=== PATIENT | female | born 1940 | race Caucasian/White ===

== ENCOUNTER 2018-10-31 14:06 | Emergency (ER) | payer MEDICARE, OTHER ==
[~2018-10-31] VITALS: Ht 160 cm; Wt 74.8 kg
[~2018-10-31 14:06] MED LIST: ASA 81 MG PO
--- NOTE | 2018-10-31 15:19 | Diagnostic Imaging Report ---
PROCEDURE: CT head and CT cervical spine without contrast. TECHNIQUE: Multiple contiguous axial images were obtained through the brain and cervical spine without the use of intravenous contrast. Sagittal and coronal reformations through the cervical spine were then performed. INDICATION: Fall, head and neck injury. COMPARISON: No prior studies are available for comparison. FINDINGS: CT HEAD: The ventricles and sulci are within normal limits. No sulcal effacement, midline shift, or hemorrhage is detected. The cisterns are patent. The visualized paranasal sinuses are clear. IMPRESSION: No acute intracranial process is detected. CT CERVICAL SPINE: The alignment is normal apart from minimal anterolisthesis of C3 on C4. There is significant degenerative disc disease at the C4-5 and C5-6 levels with disc space narrowing and marginal spurring. No fractures are identified. The odontoid appears intact. IMPRESSION: Cervical spondylosis. No acute bony abnormality is detected. Dictated by: Dictated on workstation # [id number]
[2018-10-31] MEDS ORDERED: TETANUS,DIPTH,PERTUSS P/F (BOOSTRIX) 0.5 ML VIAL IM ONE (15:30)
[2018-10-31] MEDS ORDERED: LIDOCAINE/EPI 2% 1:100,00 (XYLOCAINE) 20 ML VIAL INJ ONE (15:30)
--- NOTE | 2018-10-31 16:09 | ED Fall/Injury ---
General Chief Complaint: Trauma-Non Activation Stated Complaint: FALL;HEAD INJ Nursing Triage Note: PT AMB DOWN BASEMENT STAIRS WHEN SHE TRIPPED AND FELL, RESULTING IN HEAD HITTING CEMENT WALL. Source: patient Exam Limitations: no limitations History of Present Illness Date Seen by Provider: Oct 31, 2018 Time Seen by Provider: 14:48 Initial Comments This 78-year-old woman presents to the emergency room via private vehicle after having a fall on concrete steps going down to her basement. She was carrying items in both arms and one of the got caught up on a railing or the wall causing her to fall. She struck her head on the concrete wall. This resulted in a large laceration over the left brow. She denies any loss of consciousness , confusion, change in vision, nausea, or other signs of concussion. She also has some minor abrasions on her left lower leg and left knee. Location Injury Occurred: HOME Allergies and Home Medications Allergies Coded Allergies: No Known Drug Allergies (Unverified , 05/20/12) Patient Home Medication List Home Medication List Reviewed: Yes Review of Systems Review of Systems Constitutional: no symptoms reported Eyes: No Symptoms Reported Ears, Nose, Mouth, Throat: no symptoms reported Respiratory: no symptoms reported Cardiovascular: no symptoms reported Gastrointestinal: no symptoms reported Genitourinary: no symptoms reported : No Musculoskeletal: see HPI Skin: see HPI Psychiatric/Neurological: No Symptoms Reported Past Thkoscl-Otwyvy-Hwsagm Hx Patient Social History Alcohol Use: Denies Use Recreational Drug Use: No Smoking Status: Never a Smoker 2nd Hand Smoke Exposure: No Recent Foreign Travel: No Contact w/Someone Who Travel: No Recent Infectious Disease Expo: No Recent Hopitalizations: No Physical Abuse: No Sexual Abuse: No Seasonal Allergies Seasonal Allergies: No Past Medical History Surgeries: No Respiratory: No Cardiac: Yes Hypertension Neurological: No Genitourinary: No Gastrointestinal: Yes (colon polyp 4 years ago.) Musculoskeletal: No Endocrine: No HEENT: Yes Hearing Impairment: Bilateral Hearing Aide Cancer: No Psychosocial: No Integumentary: No Blood Disorders: No Physical Exam Vital Signs Vital Signs - First Documented Capillary Refill : Less Than 3 Seconds Height, Weight, BMI Height: 5'3.00" Weight: 165lbs. oz. 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, no motor/sensory deficits, alert, normal mood/affect, oriented x 3 Skin: normal color, warm/dry, other (See above) Sheila Coma Score Best Eye Response: (4) Open Spontaneously Best Verbal Response: (5) Oriented Best Motor Response: (6) Obeys Commands [place] Total: 15 Procedures/Interventions Wound Location: Face Other Wound Location Above left brow Wound Length (cm): 4 Wound's Depth, Shape: linear, irregular, sub Q Wound Explored: clean Irrigated w/ Saline (ccs): 400 Betadine Prep?: Yes Anesthesia: Lidocaine w/ Epi Volume Anesthetic (ccs): 3 Suture: Prolene Suture Size: 5-0 Number of Sutures: 6 Sterile Dressing Applied?: Yes Progress Open wound was sprayed with lidocaine with epinephrine. Skin was then cleaned with alcohol and local anesthetic was injected. Wound was irrigated with 400 mL of normal saline with a syringe. Wound was then repaired with 6 sutures of 5 -0 Prolene in an interrupted fashion. Patient tolerated the procedure well and wound closed nicely. Wound was dressed with a sterile Band-Aid and some antibiotic ointment. Progress/Results/Core Measures Results/Orders My Orders Orders - YOUSUF NIETO MD Ct Head/Cervical Spine Wo (10/31/18 14:54) Dipht,Pertuss(Acell),Tet Adult (Boostrix (10/31/18 15:30) Lidocaine/Epi 2% 1:100,000 (Xylocaine/Ep (10/31/18 15:30) Medications Given in ED Current Medications Medications Dose Ordered Sig/Hubert Route Start Time Stop Time Status Last Admin Dose Admin Diphtheria/ Tetanus/Acell Pertussis 0.5 ml ONCE ONCE IM 10/31/18 15:30 10/31/18 15:31 DC 10/31/18 16:01 0.5 ML Lidocaine/ Epinephrine 20 ml ONCE ONCE INJ 10/31/18 15:30 10/31/18 15:31 DC 10/31/18 15:35 20 ML Vital Signs/I&O 10/31/18 10/31/18 10/31/18 14:35 14:35 16:17 Temp 96.9 96.9 96.9 Pulse 80 80 68 Resp 18 16 18 B/P (MAP) 146/82 (103) 146/82 (103) 149/87 (107) Pulse Ox 95 95 97 O2 Delivery Room Air Room Air Room Air Blood Pressure Mean: 103 Progress Progress Note : Progress Note CT of the head and neck was negative for intracranial and bony injury. Wound was repaired. Boostrix tetanus booster was administered. Patient was discharged in improved condition. Diagnostic Imaging Diagonstic Imaging: CT Plain Films/CT/US/NM/MRI: c-spine, head Comments CT head and C-spine viewed by me and report reviewed. See report below: NAME: LINDA BRISENO [facility] REC#: [id number] PT STATUS: REG ER : 1940 PHYSICIAN: YOUSUF NIETO MD ADMIT DATE: 10/31/18/ER Signed Date of Exam: 10/31/18 CT HEAD/CERVICAL SPINE WO PROCEDURE: CT head and CT cervical spine without contrast. TECHNIQUE: Multiple contiguous axial images were obtained through the brain and cervical spine without the use of intravenous contrast. Sagittal and coronal reformations through the cervical spine were then performed. INDICATION: Fall, head and neck injury. COMPARISON: No prior studies are available for comparison. FINDINGS: CT HEAD: The ventricles and sulci are within normal limits. No sulcal effacement, midline shift, or hemorrhage is detected. The cisterns are patent. The visualized paranasal sinuses are clear. IMPRESSION: No acute intracranial process is detected. CT CERVICAL SPINE: The alignment is normal apart from minimal anterolisthesis of C3 on C4. There is significant degenerative disc disease at the C4-5 and C5-6 levels with disc space narrowing and marginal spurring. No fractures are identified. The odontoid appears intact. IMPRESSION: Cervical spondylosis. No acute bony abnormality is detected. Dictated by: Dictated on workstation # [id number] Dict: 10/31/18 1514 Trans: 10/31/18 1527 Interpreted by: DUSTY DANIELLE MD Electronically signed by: DUSTY DANIELLE MD 10/31/18 1527 Departure Impression Primary Impression: Laceration of forehead Qualified Codes: S01.81XA - Laceration without foreign body of other part of head, initial encounter Additional Impression: Fall on stairs Qualified Codes: W10.9XXA - Fall (on) (from) unspecified stairs and steps, initial encounter Disposition: 01 HOME, SELF-CARE Condition: Improved Departure-Patient Inst. Decision time for Depature: 15:45 Referrals: LEONIDAS AMAYA MD (PCP) Primary Care Physician Patient Instructions: Laceration Repair With Stitches (DC), Minor Head Injury ( DC) Add. Discharge Instructions: Keep the wound covered when active or when in dirty environments. You may also wish to cover it at bedtime to avoid disrupting the sutures in your sleep. You may use a small amount of antibiotic ointment to prevent the dressing from sticking to the wound from dried drainage. Expect some degree of a bloody or clear yellow drainage for the next 48 hours. You may shower starting tomorrow morning but do not submerge until sutures are removed. Do not scrub directly over the sutures, but you may allow soapy water to run over the wound. Monitor for signs of infection including increasing redness, increasing swelling, increasing pain, puslike drainage, or fever over 100. Return to care promptly if you notice these symptoms. Return in 7 days to have the sutures removed. All discharge instructions reviewed with patient and/or family. Voiced understanding. Copy Copies To 1: ADRIÁN HUSAIN MD, JOSHUA T MD Oct 31, 2018 16:09
[2018-10-31 16:17] VITALS: BP 149/87
== END 2018-10-31 16:17 | disposition home or self-care (01) ==
LOC: EDUNIT# 14:06 → ER 14:07
DX: S01.01XA Laceration without foreign body of scalp, initial encounter (principal); I10 Essential (primary) hypertension; R40.2142 Coma scale, eyes open, spontaneous, at arrival to emergency department; R40.2252 Coma scale, best verbal response, oriented, at arrival to emergency department; R40.2362 Coma scale, best motor response, obeys commands, at arrival to emergency department; Z23 Encounter for immunization; Z86.010 Personal history of colon polyps; W10.8XXA Fall (on) (from) other stairs and steps, initial encounter; W22.01XA Walked into wall, initial encounter; Y92.008 Other place in unspecified non-institutional (private) residence as the place of occurrence of the external cause
CPT/HCPCS: 12013; 64450; 70450; 72125; 90471; 90715

== ENCOUNTER 2018-11-07 14:17 | Emergency (ER) | payer MEDICARE, OTHER | END 2018-11-07 16:17 | disposition left against medical advice (07) | LOC: EDUNIT# 14:17 → ER 14:18 | DX: Z48.02 Encounter for removal of sutures (principal) ==

== ENCOUNTER 2019-02-02 06:10 | Outpatient (CLI) | payer MEDICARE, OTHER ==
[~2019-02-02] VITALS: Ht 160 cm; Wt 74.8 kg
[2019-02-04] MEDS ORDERED: FLAX100032 PO (12:04)
[2019-02-04] MEDS ORDERED: LOSA50TA63 PO (12:04)
[2019-02-04] MEDS ORDERED: FISH1CAP15 PO (12:04)
== END 2019-02-02 12:39 | disposition home or self-care (01) ==
LOC: PREOP 06:10
PROVIDERS: ATTEND Specialist
DX: Z01.818 Encounter for other preprocedural examination (principal)

== ENCOUNTER 2019-02-06 08:12 | Day surgery (SDC) | payer MEDICARE, OTHER ==
[~2019-02-06] VITALS: Ht 160 cm; Wt 74.8 kg
[~2019-02-06 08:12] MED LIST changes: +FISH1CAP15 PO; +FLAX100032 PO; +LOSA50TA63 PO
[2019-02-06] MEDS ORDERED: LIDOCAINE PF 1% 2 ML AMP IR PRN (08:15)
[2019-02-06] MEDS ORDERED: MOXIFLOXACIN OPHTH SOLN 5 MG/ML 0.3 ML SYRINGE OP ONE (08:15)
[2019-02-06] MEDS ORDERED: TIMOLOL MALEATE 0.5% 5 ML (TIMOPTIC) BTL OU PRN (08:15)
[2019-02-06] MEDS ORDERED: POVIDONE (BETADINE) OPHTH SOLN 5% 30 ML OP ONE (08:15)
[2019-02-06 08:16] VITALS: BP 136/78
--- OUTSIDE RECORDS SUMMARY | 2019-02-06 08:16 | XMS REPORT | CCD ---
Author Author [facility] Organization [facility] Address [address] [place] [address] Phone Care Team Providers Care Account [employer] Name Role Phone PP Unavailable CCM Unavailable Summary Purpose Interface Exchange Insurance Providers Payer name Policy type / Coverage type Covered constitution party ID Effective Begin Date Effective End Date WPS Medicare Part B Medicare Part B [id number] Unknown [employer] [place] Medicare Part B [id number] Unknown Family history Mother Diagnosis Age At Onset Myocardial infarction Unknown Social History Social History Element Codes Description Effective Dates Marital status Unknown Paul 05/02/2016 Number of children Unknown 3 05/02/2016 Employment Unknown Retired 05/02/[address]: 866381 Currently drinks alcohol 05/02/2016 Frequency of drinks SNOMED CT: 572641035 1-4 drinks per week 1 per week 05/02/2016 Allergies, Adverse Reactions, Alerts Substance Reaction Codes Entered Date Inactivated Date Status Lipitor RxNorm: 83278 05/14/2018 No Inactive Date Active VITAMIN E ANALOGUES Unknown 09/06/2017 No Inactive Date Active VITAMIN E DERIVATIVES Unknown 09/06/2017 No Inactive Date Active Past Medical History Illness Codes Condition Status Onset Date Resolved Date Actinic keratosis ICD- 9: 702.0 ICD-10: L57.0 Active 05/21/2017 Unknown Essential (primary) hypertension ICD-9: 401.1 ICD-10: I10 Active 05/01/2018 Unknown Mixed hyperlipidemia ICD-9: 272.2 ICD-10: E78.2 Active 05/21/2017 Unknown Encounter for screening mammogram for malignant neoplasm of breast ICD-9: V76.12 ICD-10: Z12.31 Active 01/20/2018 Unknown Encounter for immunization ICD-9: V04.81 ICD-10: Z23 Active 09/05/2017 Unknown Rash and other nonspecific skin eruption ICD-9: 782.1 ICD-10: R21 Active 09/05/2017 Unknown Vitamin D deficiency, unspecified ICD-9: 268.9 ICD-10: E55.9 Active 05/01/2016 Unknown Encounter for general adult medical examination without abnormal findings ICD-9: V70.0 ICD-10: Z00.00 Active 05/01/2016 Unknown Encounter for immunization ICD-9: V03.9 ICD-10: Z23 Active 05/01/2016 Unknown Problems Condition Codes Effective Dates Condition Status Actinic keratosis ICD- 9: 702.0 ICD-10: L57.0 05/21/2017 Active Essential (primary) hypertension ICD-9: 401.1 ICD-10: I10 05/01/2018 Active Mixed hyperlipidemia ICD-9: 272.2 ICD-10: E78.2 05/21/2017 Active Encounter for screening mammogram for malignant neoplasm of breast ICD-9: V76.12 ICD-10: Z12.31 01/20/2018 Active Encounter for immunization ICD-9: V04.81 ICD-10: Z23 09/05/2017 Active Rash and other nonspecific skin eruption ICD-9: 782.1 ICD-10: R21 09/05/2017 Active Vitamin D deficiency, unspecified ICD-9: 268.9 ICD-10: E55.9 05/01/2016 Active Encounter for general adult medical examination without abnormal findings ICD-9: V70.0 ICD-10: Z00.00 05/01/2016 Active Encounter for immunization ICD-9: V03.9 ICD-10: Z23 05/01/2016 Active Medications Medication Codes Instructions Start Date Stop Date Status Fill Instructions betamethasone valerate 0.1 % topical ointment RxNorm: 042088 1 Application TOP BID 12/08/2018 01/06/2019 Active losartan 50 mg tablet RxNorm: 863306 1 Tablet(s) PO QPM 201708/21/2019 Active gemfibrozil 600 mg tablet RxNorm: 674873 1 Tablet(s) PO BID 05/28/2018 Inactive doing a short supply to see if she can tolerate med gemfibrozil 600 mg tablet RxNorm: 659559 1 Tablet(s) PO BID 05/13/2018 Inactive doing a short supply to see if she can tolerate med Lipitor 10 mg tablet RxNorm: 163210 1 Tablet(s) PO QHS 201705/13/2018 Inactive losartan 50 mg tablet RxNorm: 730638 1 Tablet(s) PO QPM 201705/28/2018 Inactive prednisone 20 mg tablet RxNorm: 902002 2 Tablet(s) PO daily 04/201709/09/2017 Inactive Kenalog 40 mg/mL suspension for injection RxNorm: 9756088 Milliliter(s) Inj 09/05/2017 09/05/2017 Inactive nystatin 100,000 unit/gram topical cream RxNorm: 317226 1 Gram(s) TOP TID 09/04/2017 09/03/2017 Inactive nystatin 100,000 unit/gram topical cream RxNorm: 235800 1 Gram(s) TOP TID 09/04/2017 09/10/2017 Inactive Diflucan 150 mg tablet RxNorm: 080698 1 Tablet(s) PO daily 01/201709/08/2017 Inactive Diflucan 150 mg tablet RxNorm: 040678 1 Tablet(s) PO daily 01/201709/01/2017 Inactive Lipitor 10 mg tablet RxNorm: 987941 1 Tablet(s) PO QHS 201605/21/2017 Inactive Lipitor 10 mg tablet RxNorm: 591223 1 Tablet(s) PO QHS 201604/30/2018 Inactive Vitamin D3 1,000 unit tablet RxNorm: 574188 4 Tablet(s) PO BID 10/03/2016 05/20/2017 Inactive Vitamin D2 50,000 unit capsule RxNorm: 509388 1 Capsule(s) PO QW 10/03/2016 04/30/2018 Inactive Vitamin D2 50,000 unit capsule RxNorm: 381056 1 Capsule(s) PO QW 05/31/2016 10/02/2016 Inactive [id number] Oil oral RxNorm: oral No Start Date Active Vitamin D3 1,000 unit tablet RxNorm: 564531 3 Tablet(s) PO daily No Start Date 10/02/2016 Inactive Vitamin D2 50,000 unit capsule RxNorm: 616578 1 Capsule(s) PO QW No Start Date 05/30/2016 Inactive Medication Administered Medication Codes Instructions Start Date Status Kenalog 40 mg/mL suspension for injection RxNorm: 9329049 Milliliter 09/05/2017 No longer Active Immunizations Vaccine Codes Date Status Influenza CVX: 141 09/05/2017 completed Pneumococcal (Adult) CVX: 133 05/02/2016 completed Assessments Condition Codes Effective Dates Essential (primary) hypertension ICD-10: I10 ICD-9: 401.1 12/08/2018 Mixed hyperlipidemia ICD-10: E78.2 ICD-9: 272.2 12/08/2018 Actinic keratosis ICD-10: L57.0 ICD-9: 702.0 12/08/2018 Encounter for screening mammogram for malignant neoplasm of breast ICD-10: Z12.31 ICD-9: V76.12 01/20/2018 Encounter for immunization ICD-10: Z23 ICD-9: V04.81 09/05/2017 Rash and other nonspecific skin eruption ICD-10: R21 ICD-9: 782.1 09/05/2017 Vitamin D deficiency, unspecified ICD-10: E55.9 ICD-9: 268.9 05/21/2017 Encounter for general adult medical examination without abnormal findings ICD-10: Z00.00 ICD-9: V70.0 05/02/2016 Encounter for immunization ICD-10: Z23 ICD-9: V03.9 05/02/2016 Reason For Visit Reason For Visit Effective Dates Notes hypertension 12/08/2018 blood pressure followup 05/29/2018 hyperlipidemia 05/01/2018 hx of hyperlipdemia- no med tx rash 09/05/2017 hyperlipidemia 05/21/2017 hx of hyperlipdemia- no med tx well woman exam (65+ years) 05/02/2016 Results Observation Observation Code Item Item Code Result Date Lipid Ord30 CHOL 233 mg/dL 12/08/2018 Lipid Ord30 HDL 45.0 mg/dl 12/08/2018 Lipid Ord30 TRIG 150 mg/dL 12/08/2018 Lipid Ord30 LDL 158 mg/dL 12/08/2018 Lipid Ord30 C/HDL 5.2 Ratio 12/08/2018 Tsh Ord6 TSH (3rd IS) 2.62 uIU/mL 12/08/2018 Cbc With Differential Ord2 WBC 6.50 K/ul 12/08/2018 Cbc With Differential Ord2 RBC 4.69 M/ul 12/08/2018 Cbc With Differential Ord2 HGB 13.9 g/dl 12/08/2018 Cbc With Differential Ord2 HCT 41.6 % 12/08/2018 Cbc With Differential Ord2 Neut% 57.7 % 12/08/2018 Cbc With Differential Ord2 MCV 88.7 fl 12/08/2018 Cbc With Differential Ord2 Lymph% 30.6 % 12/08/2018 Cbc With Differential Ord2 MCH 29.6 pg 12/08/2018 Cbc With Differential Ord2 Giles% 9.1 % 12/08/2018 Cbc With Differential Ord2 MCHC 33.4 pg 12/08/2018 Cbc With Differential Ord2 Eos% 2.0 % 12/08/2018 Cbc With Differential Ord2 PLT 255 K/ul 12/08/2018 Cbc With Differential Ord2 Baso% 0.6 % 12/08/2018 Cbc With Differential Ord2 RDW 13.2 % 12/08/2018 Cbc With Differential Ord2 Neut ABS# 3.75 K/ul 12/08/2018 Cbc With Differential Ord2 Lymph ABS# 1.99 K/ul 12/08/2018 Cbc With Differential Ord2 Giles ABS# 0.6 K/ul 12/08/2018 Cbc With Differential Ord2 Eos ABS# 0.1 K/ul 12/08/2018 Cbc With Differential Ord2 Baso ABS# 0.0 K/ul 12/08/2018 Comp Metabolic Gut931 NA 141 mEq/L 12/08/2018 Comp Metabolic Zya230 K 4.4 mEq/L 12/08/2018 Comp Metabolic Gya542 CL 104 mEq/L 12/08/2018 Comp Metabolic Ymt385 CO2 27.0 mEq/L 12/08/2018 Comp Metabolic Ptp495 ANION GAP 14 12/08/2018 Comp Metabolic Bcm004 GLUCOSE 121 mg/dL 12/08/2018 Comp Metabolic Tqw869 Creat 0.9 mg/dL 12/08/2018 Comp Metabolic Nwr887 eGFR 66 ml/min/1.73m2 12/08/2018 Comp Metabolic Yia001 BUN 15 mg/dL 12/08/2018 Comp Metabolic Gha923 B/C Ratio 17.0 Ratio 12/08/2018 Comp Metabolic Ltg235 CALCIUM 9.0 mg/dL 12/08/2018 Comp Metabolic Lzo535 ALK PHOS 63 U/L 12/08/2018 Comp Metabolic Cco353 AST(SGOT) 22 U/L 12/08/2018 Comp Metabolic Oeb084 ALT(SGPT) 27 U/L 12/08/2018 Comp Metabolic Mid091 BILI T 0.7 mg/dL 12/08/2018 Comp Metabolic Mpq950 ALBUMIN 4.1 g/dL 12/08/2018 Comp Metabolic Dkh797 TPRO 6.4 g/dL 12/08/2018 Comp Metabolic Fkq001 GLOB 2.4 g/dL 12/08/2018 Comp Metabolic Xve980 A/G Ratio 1.7 Ratio 12/08/2018 Comp Metabolic Alv448 Osmo 283 mOsmo 12/08/2018 Tsh Ord6 TSH (3rd IS) 3.12 uIU/mL 05/01/2018 Lipid Ord30 CHOL 212 mg/dL 05/01/2018 Lipid Ord30 HDL 47.0 mg/dl 05/01/2018 Lipid Ord30 TRIG 156 mg/dL 05/01/2018 Lipid Ord30 LDL 134 mg/dL 05/01/2018 Lipid Ord30 C/HDL 4.5 Ratio 05/01/2018 Comp Metabolic Oak776 NA 139 mEq/L 05/01/2018 Comp Metabolic Wfx008 K 4.2 mEq/L 05/01/2018 Comp Metabolic Mlv652 CL 103 mEq/L 05/01/2018 Comp Metabolic Xns732 CO2 28.0 mEq/L 05/01/2018 Comp Metabolic Vtq455 ANION GAP 12 05/01/2018 Comp Metabolic Jvz251 GLUCOSE 109 mg/dL 05/01/2018 Comp Metabolic Uki524 Creat 0.9 mg/dL 05/01/2018 Comp Metabolic Stm647 eGFR 68 ml/min/1.73m2 05/01/2018 Comp Metabolic Clc505 BUN 13 mg/dL 05/01/2018 Comp Metabolic Qkw303 B/C Ratio 15.3 Ratio 05/01/2018 Comp Metabolic Ogg550 CALCIUM 9.4 mg/dL 05/01/2018 Comp Metabolic Iqc406 ALK PHOS 49 U/L 05/01/2018 Comp Metabolic Rxr275 AST(SGOT) 13 U/L 05/01/2018 Comp Metabolic Vga929 ALT(SGPT) 12 U/L 05/01/2018 Comp Metabolic Vvd649 BILI T 0.6 mg/dL 05/01/2018 Comp Metabolic Ucu631 ALBUMIN 4.4 g/dL 05/01/2018 Comp Metabolic Uoz830 TPRO 6.6 g/dL 05/01/2018 Comp Metabolic Lik884 GLOB 2.2 g/dL 05/01/2018 Comp Metabolic Pgh638 A/G Ratio 2.0 Ratio 05/01/2018 Comp Metabolic Vzq651 Osmo 278 mOsmo 05/01/2018 Cbc With Differential Ord2 WBC 7.02 K/ul 05/01/2018 Cbc With Differential Ord2 RBC 4.69 M/ul 05/01/2018 Cbc With Differential Ord2 HGB 13.8 g/dl 05/01/2018 Cbc With Differential Ord2 HCT 41.2 % 05/01/2018 Cbc With Differential Ord2 Neut% 54.1 % 05/01/2018 Cbc With Differential Ord2 MCV 87.8 fl 05/01/2018 Cbc With Differential Ord2 Lymph% 35.2 % 05/01/2018 Cbc With Differential Ord2 MCH 29.4 pg 05/01/2018 Cbc With Differential Ord2 Giles% 8.4 % 05/01/2018 Cbc With Differential Ord2 MCHC 33.5 pg 05/01/2018 Cbc With Differential Ord2 Eos% 1.7 % 05/01/2018 Cbc With Differential Ord2 PLT 263 K/ul 05/01/2018 Cbc With Differential Ord2 Baso% 0.6 % 05/01/2018 Cbc With Differential Ord2 RDW 13.3 % 05/01/2018 Cbc With Differential Ord2 Neut ABS# 3.80 K/ul 05/01/2018 Cbc With Differential Ord2 Lymph ABS# 2.47 K/ul 05/01/2018 Cbc With Differential Ord2 Giles ABS# 0.6 K/ul 05/01/2018 Cbc With Differential Ord2 Eos ABS# 0.1 K/ul 05/01/2018 Cbc With Differential Ord2 Baso ABS# 0.0 K/ul 05/01/2018 Lipid Ord30 CHOL 217 mg/dL 05/21/2017 Lipid Ord30 HDL 45.0 mg/dl 05/21/2017 Lipid Ord30 TRIG 162 mg/dL 05/21/2017 Lipid Ord30 LDL 140 mg/dL 05/21/2017 Lipid Ord30 C/HDL 4.8 Ratio 05/21/2017 Comp Metabolic Yxa855 NA 140 mEq/L 05/21/2017 Comp Metabolic Tqn415 K 5.1 mEq/L 05/21/2017 Comp Metabolic Vtv504 CL 103 mEq/L 05/21/2017 Comp Metabolic Jkd583 CO2 29.0 mEq/L 05/21/2017 Comp Metabolic Lvm488 ANION GAP 13 05/21/2017 Comp Metabolic Wse604 GLUCOSE 122 mg/dL 05/21/2017 Comp Metabolic Nrv948 Creat 0.9 mg/dL 05/21/2017 Comp Metabolic Ylg017 eGFR 68 ml/min/1.73m2 05/21/2017 Comp Metabolic Pre138 BUN 18 mg/dL 05/21/2017 Comp Metabolic Jvi772 B/C Ratio 20.9 Ratio 05/21/2017 Comp Metabolic Bnh565 CALCIUM 9.5 mg/dL 05/21/2017 Comp Metabolic Pwh069 ALK PHOS 64 U/L 05/21/2017 Comp Metabolic Pqt655 AST(SGOT) 14 U/L 05/21/2017 Comp Metabolic Afc828 ALT(SGPT) 12 U/L 05/21/2017 Comp Metabolic Smf977 BILI T 0.6 mg/dL 05/21/2017 Comp Metabolic Olj535 ALBUMIN 4.3 g/dL 05/21/2017 Comp Metabolic Gre499 TPRO 6.9 g/dL 05/21/2017 Comp Metabolic Box635 GLOB 2.6 g/dL 05/21/2017 Comp Metabolic Qie509 A/G Ratio 1.6 Ratio 05/21/2017 Comp Metabolic Kss183 Osmo 283 mOsmo 05/21/2017 Tsh Ord6 hTSH II 2.21 uIU/mL 05/21/2017 Cbc With Differential Ord2 WBC 6.75 K/ul 05/21/2017 Cbc With Differential Ord2 RBC 4.63 M/ul 05/21/2017 Cbc With Differential Ord2 HGB 13.7 g/dl 05/21/2017 Cbc With Differential Ord2 HCT 41.0 % 05/21/2017 Cbc With Differential Ord2 Neut% 58.1 % 05/21/2017 Cbc With Differential Ord2 MCV 88.6 fl 05/21/2017 Cbc With Differential Ord2 Lymph% 31.3 % 05/21/2017 Cbc With Differential Ord2 MCH 29.6 pg 05/21/2017 Cbc With Differential Ord2 Giles% 8.6 % 05/21/2017 Cbc With Differential Ord2 MCHC 33.4 pg 05/21/2017 Cbc With Differential Ord2 Eos% 1.6 % 05/21/2017 Cbc With Differential Ord2 PLT 274 K/ul 05/21/2017 Cbc With Differential Ord2 Baso% 0.4 % 05/21/2017 Cbc With Differential Ord2 RDW 13.4 % 05/21/2017 Cbc With Differential Ord2 Neut ABS# 3.92 K/ul 05/21/2017 Cbc With Differential Ord2 Lymph ABS# 2.11 K/ul 05/21/2017 Cbc With Differential Ord2 Giles ABS# 0.6 K/ul 05/21/2017 Cbc With Differential Ord2 Eos ABS# 0.1 K/ul 05/21/2017 Cbc With Differential Ord2 Baso ABS# 0.0 K/ul 05/21/2017 Vitamin D 25 Oh Gxw1485 VITAMIN D, 25 HYDROXY 33.89 ng/mL Lipid Ord30 CHOL 223 mg/dL 09/27/2016 Lipid Ord30 HDL 37.0 mg/dl 09/27/2016 Lipid Ord30 TRIG 183 mg/dL 09/27/2016 Lipid Ord30 LDL 149 mg/dL 09/27/2016 Lipid Ord30 C/HDL 6.0 Ratio 09/27/2016 Cbc With Differential Ord2 WBC 6.67 K/ul 05/02/2016 Cbc With Differential Ord2 RBC 4.63 M/ul 05/02/2016 Cbc With Differential Ord2 HGB 13.7 g/dl 05/02/2016 Cbc With Differential Ord2 HCT 40.5 % 05/02/2016 Cbc With Differential Ord2 Neut% 56.1 % 05/02/2016 Cbc With Differential Ord2 MCV 87.5 fl 05/02/2016 Cbc With Differential Ord2 Lymph% 33.4 % 05/02/2016 Cbc With Differential Ord2 MCH 29.6 pg 05/02/2016 Cbc With Differential Ord2 Giles% 8.2 % 05/02/2016 Cbc With Differential Ord2 MCHC 33.8 pg 05/02/2016 Cbc With Differential Ord2 Eos% 1.9 % 05/02/2016 Cbc With Differential Ord2 PLT 260 K/ul 05/02/2016 Cbc With Differential Ord2 Baso% 0.4 % 05/02/2016 Cbc With Differential Ord2 RDW 13.5 % 05/02/2016 Cbc With Differential Ord2 Neut ABS# 3.73 K/ul 05/02/2016 Cbc With Differential Ord2 Lymph ABS# 2.23 K/ul 05/02/2016 Cbc With Differential Ord2 Giles ABS# 0.6 K/ul 05/02/2016 Cbc With Differential Ord2 Eos ABS# 0.1 K/ul 05/02/2016 Cbc With Differential Ord2 Baso ABS# 0.0 K/ul 05/02/2016 Vitamin D 25 Oh Hil7486 VITAMIN D, 25 HYDROXY 27.21 ng/mL Comp Metabolic Kxd473 NA 137 mEq/L 05/02/2016 Comp Metabolic Chs045 K 4.5 mEq/L 05/02/2016 Comp Metabolic Bzi716 CL 103 mEq/L 05/02/2016 Comp Metabolic Hia611 CO2 29.0 mEq/L 05/02/2016 Comp Metabolic Ins492 ANION GAP 10 05/02/2016 Comp Metabolic Lcr169 GLUCOSE 115 mg/dL 05/02/2016 Comp Metabolic Exq002 Creat 0.8 mg/dL 05/02/2016 Comp Metabolic Igv850 eGFR 70 ml/min/1.73m2 05/02/2016 Comp Metabolic Nwe263 BUN 17 mg/dL 05/02/2016 Comp Metabolic Kww719 B/C Ratio 20.2 Ratio 05/02/2016 Comp Metabolic Izu004 CALCIUM 9.3 mg/dL 05/02/2016 Comp Metabolic Mdq345 ALK PHOS 62 U/L 05/02/2016 Comp Metabolic Zrx688 AST(SGOT) 11 U/L 05/02/2016 Comp Metabolic Qkz820 ALT(SGPT) 10 U/L 05/02/2016 Comp Metabolic Tye774 BILI T 0.6 mg/dL 05/02/2016 Comp Metabolic Ddr119 ALBUMIN 4.3 g/dL 05/02/2016 Comp Metabolic Odm207 TPRO 6.9 g/dL 05/02/2016 Comp Metabolic Qik124 GLOB 2.6 g/dL 05/02/2016 Comp Metabolic Mmk230 A/G Ratio 1.6 Ratio 05/02/2016 Comp Metabolic Hpf490 Osmo 276 mOsmo 05/02/2016 Tsh Ord6 hTSH II 1.87 uIU/mL 05/02/2016 Lipid Ord30 CHOL 224 mg/dL 05/02/2016 Lipid Ord30 HDL 43.0 mg/dl 05/02/2016 Lipid Ord30 TRIG 148 mg/dL 05/02/2016 Lipid Ord30 LDL 151 mg/dL 05/02/2016 Lipid Ord30 C/HDL 5.2 Ratio 05/02/2016 Review of Systems System Result Effective Dates Constitutional No recent illness 2018 Constitutional No chills 12/08/2018 Constitutional No fatigue 12/08/2018 Constitutional No fever 12/08/2018 Constitutional No insomnia 12/08/2018 Constitutional No malaise 12/08/2018 Eyes No blindness 12/08/2018 Eyes No vision change 12/08/2018 Ears/Nose/Throat/Neck No dental pain 06/2019 Ears/Nose/Throat/Neck No dizziness 2018 Ears/Nose/Throat/Neck No dysphagia 2018 Ears/Nose/Throat/Neck No headache 2018 Ears/Nose/Throat/Neck No hearing loss 06/2019 Ears/Nose/Throat/Neck No nasal allergies 12/08/2018 Ears/Nose/Throat/Neck No sore throat 06/2019 Ears/Nose/Throat/Neck No postnasal drip 12/08/2018 Ears/Nose/Throat/Neck No sinus congestion 12/08/2018 Cardiovascular No chest pain/pressure 06/2019 Cardiovascular No dyspnea 12/08/2018 Cardiovascular No edema 12/08/2018 Cardiovascular No exercise intolerance Cardiovascular No fatigue 12/08/2018 Cardiovascular No near-syncope/dizziness 12/08/2018 Respiratory No chest tightness 2018 Respiratory No cough 12/08/2018 Respiratory No dyspnea 12/08/2018 Respiratory No pedal edema 12/08/2018 Gastrointestinal No abdominal pain 2018 Gastrointestinal No constipation 2018 Gastrointestinal No diarrhea 12/08/2018 Gastrointestinal No gastroesophageal reflux 12/08/2018 Gastrointestinal No nausea 12/08/2018 Gastrointestinal No vomiting 12/08/2018 Genitourinary/Nephrology No dysuria 12/08 Genitourinary/Nephrology No nocturia 06/2019 Genitourinary/Nephrology No urinary incontinence 12/08/2018 Musculoskeletal No stiffness 12/08/2018 Musculoskeletal No swelling 12/08/2018 Musculoskeletal No muscle weakness 2018 Musculoskeletal No myalgias 12/08/2018 Dermatologic No rash 12/08/2018 Dermatologic sores 12/08/2018 Neurologic No dizziness 12/08/2018 Neurologic No headache 12/08/2018 Neurologic No neck pain 12/08/2018 Neurologic No syncope 12/08/2018 Psychiatric No anxiety 12/08/2018 Psychiatric No depression 12/08/2018 Constitutional No recent illness 2017 Constitutional No chills 05/29/2018 Constitutional No fatigue 05/29/2018 Constitutional No fever 05/29/2018 Constitutional No insomnia 05/29/2018 Constitutional No malaise 05/29/2018 Eyes No blindness 05/29/2018 Eyes No vision change 05/29/2018 Ears/Nose/Throat/Neck No dental pain Ears/Nose/Throat/Neck No dizziness 2017 Ears/Nose/Throat/Neck No dysphagia 2017 Ears/Nose/Throat/Neck No headache 2017 Ears/Nose/Throat/Neck No hearing loss Ears/Nose/Throat/Neck No nasal allergies 05/29/2018 Ears/Nose/Throat/Neck No sore throat Ears/Nose/Throat/Neck No postnasal drip 05/29/2018 Ears/Nose/Throat/Neck No sinus congestion 05/29/2018 Cardiovascular No chest pain/pressure Cardiovascular No dyspnea 05/29/2018 Cardiovascular No edema 05/29/2018 Cardiovascular No exercise intolerance Cardiovascular No fatigue 05/29/2018 Cardiovascular No near-syncope/dizziness 05/29/2018 Respiratory No chest tightness 2017 Respiratory No cough 05/29/2018 Respiratory No dyspnea 05/29/2018 Respiratory No pedal edema 05/29/2018 Gastrointestinal No abdominal pain 2017 Gastrointestinal No constipation 2017 Gastrointestinal No diarrhea 05/29/2018 Gastrointestinal No gastroesophageal reflux 05/29/2018 Gastrointestinal No nausea 05/29/2018 Gastrointestinal No vomiting 05/29/2018 Musculoskeletal No stiffness 05/29/2018 Musculoskeletal No swelling 05/29/2018 Musculoskeletal No muscle weakness 2017 Musculoskeletal No myalgias 05/29/2018 Dermatologic sores 05/29/2018 Psychiatric No anxiety 05/29/2018 Psychiatric No depression 05/29/2018 Constitutional No recent illness 2017 Constitutional No chills 05/01/2018 Constitutional No fatigue 05/01/2018 Constitutional No fever 05/01/2018 Constitutional No insomnia 05/01/2018 Constitutional No malaise 05/01/2018 Eyes No blindness 05/01/2018 Eyes No vision change 05/01/2018 Ears/Nose/Throat/Neck No dental pain Ears/Nose/Throat/Neck No dizziness 2017 Ears/Nose/Throat/Neck No dysphagia 2017 Ears/Nose/Throat/Neck No headache 2017 Ears/Nose/Throat/Neck No hearing loss Ears/Nose/Throat/Neck No nasal allergies 05/01/2018 Ears/Nose/Throat/Neck No sore throat Ears/Nose/Throat/Neck No postnasal drip 05/01/2018 Ears/Nose/Throat/Neck No sinus congestion 05/01/2018 Cardiovascular No chest pain/pressure Cardiovascular No dyspnea 05/01/2018 Cardiovascular No edema 05/01/2018 Cardiovascular No exercise intolerance Cardiovascular No fatigue 05/01/2018 Cardiovascular No near-syncope/dizziness 05/01/2018 Respiratory No chest tightness 2017 Respiratory No cough 05/01/2018 Respiratory No dyspnea 05/01/2018 Respiratory No pedal edema 05/01/2018 Gastrointestinal No abdominal pain 2017 Gastrointestinal No constipation 2017 Gastrointestinal No diarrhea 05/01/2018 Gastrointestinal No gastroesophageal reflux 05/01/2018 Gastrointestinal No nausea 05/01/2018 Gastrointestinal No vomiting 05/01/2018 Genitourinary/Nephrology No dysuria 05/01 Genitourinary/Nephrology No nocturia Genitourinary/Nephrology No urinary incontinence 05/01/2018 Musculoskeletal No stiffness 05/01/2018 Musculoskeletal No swelling 05/01/2018 Musculoskeletal No muscle weakness 2017 Musculoskeletal No myalgias 05/01/2018 Dermatologic No rash 05/01/2018 Dermatologic sores 05/01/2018 Neurologic No dizziness 05/01/2018 Neurologic No headache 05/01/2018 Neurologic No neck pain 05/01/2018 Neurologic No syncope 05/01/2018 Psychiatric No anxiety 05/01/2018 Psychiatric No depression 05/01/2018 Constitutional No recent illness 2016 Constitutional No chills 09/05/2017 Constitutional No diaphoresis 09/05/2017 Constitutional No fever 09/05/2017 Eyes No eye erythema 09/05/2017 Ears/Nose/Throat/Neck No nasal discharge 09/05/2017 Ears/Nose/Throat/Neck No nasal allergies 09/05/2017 Cardiovascular No chest pain/pressure 04/2017 Respiratory No dyspnea 09/05/2017 Respiratory No cough 09/05/2017 Gastrointestinal No abdominal pain 2016 Dermatologic rash 09/05/2017 Dermatologic erythema 09/05/2017 Neurologic No alteration of consciousness 09/05/2017 Neurologic No mental status change 2016 Constitutional No recent illness 2016 Constitutional No chills 05/21/2017 Constitutional No fatigue 05/21/2017 Constitutional No fever 05/21/2017 Constitutional No insomnia 05/21/2017 Constitutional No malaise 05/21/2017 Eyes No blindness 05/21/2017 Eyes No vision change 05/21/2017 Ears/Nose/Throat/Neck No dental pain Ears/Nose/Throat/Neck No dizziness 2016 Ears/Nose/Throat/Neck No dysphagia 2016 Ears/Nose/Throat/Neck No headache 2016 Ears/Nose/Throat/Neck No hearing loss Ears/Nose/Throat/Neck No nasal allergies 05/21/2017 Ears/Nose/Throat/Neck No sore throat Ears/Nose/Throat/Neck No postnasal drip 05/21/2017 Ears/Nose/Throat/Neck No sinus congestion 05/21/2017 Cardiovascular No chest pain/pressure Cardiovascular No dyspnea 05/21/2017 Cardiovascular No edema 05/21/2017 Cardiovascular No exercise intolerance Cardiovascular No fatigue 05/21/2017 Cardiovascular No near-syncope/dizziness 05/21/2017 Respiratory No chest tightness 2016 Respiratory No cough 05/21/2017 Respiratory No dyspnea 05/21/2017 Respiratory No pedal edema 05/21/2017 Gastrointestinal No abdominal pain 2016 Gastrointestinal No constipation 2016 Gastrointestinal No diarrhea 05/21/2017 Gastrointestinal No gastroesophageal reflux 05/21/2017 Gastrointestinal No nausea 05/21/2017 Gastrointestinal No vomiting 05/21/2017 Genitourinary/Nephrology No dysuria 05/21 Genitourinary/Nephrology No nocturia Genitourinary/Nephrology No urinary incontinence 05/21/2017 Musculoskeletal No stiffness 05/21/2017 Musculoskeletal No swelling 05/21/2017 Musculoskeletal No muscle weakness 2016 Musculoskeletal No myalgias 05/21/2017 Dermatologic No rash 05/21/2017 Dermatologic No sores 05/21/2017 Dermatologic No scar 05/21/2017 Neurologic No dizziness 05/21/2017 Neurologic No headache 05/21/2017 Neurologic No neck pain 05/21/2017 Neurologic No syncope 05/21/2017 Psychiatric No anxiety 05/21/2017 Psychiatric No depression 05/21/2017 Constitutional No recent illness 2015 Constitutional No chills 05/02/2016 Constitutional No fatigue 05/02/2016 Constitutional No fever 05/02/2016 Constitutional No insomnia 05/02/2016 Constitutional No malaise 05/02/2016 Eyes No blindness 05/02/2016 Eyes No vision change 05/02/2016 Ears/Nose/Throat/Neck No dental pain 12/2015 Ears/Nose/Throat/Neck No dizziness 2015 Ears/Nose/Throat/Neck No dysphagia 2015 Ears/Nose/Throat/Neck No headache 2015 Ears/Nose/Throat/Neck No hearing loss 12/2015 Ears/Nose/Throat/Neck No nasal allergies 05/02/2016 Ears/Nose/Throat/Neck No sore throat 12/2015 Ears/Nose/Throat/Neck No postnasal drip 05/02/2016 Ears/Nose/Throat/Neck No sinus congestion 05/02/2016 Cardiovascular No chest pain/pressure 12/2015 Cardiovascular No dyspnea 05/02/2016 Cardiovascular No edema 05/02/2016 Cardiovascular No exercise intolerance Cardiovascular No fatigue 05/02/2016 Cardiovascular No near-syncope/dizziness 05/02/2016 Respiratory No chest tightness 2015 Respiratory No cough 05/02/2016 Respiratory No dyspnea 05/02/2016 Respiratory No pedal edema 05/02/2016 Gastrointestinal No abdominal pain 2015 Gastrointestinal No constipation 2015 Gastrointestinal No diarrhea 05/02/2016 Gastrointestinal No gastroesophageal reflux 05/02/2016 Gastrointestinal No nausea 05/02/2016 Gastrointestinal No vomiting 05/02/2016 Genitourinary/Nephrology No dysuria 05/02 Genitourinary/Nephrology No nocturia 12/2015 Genitourinary/Nephrology No urinary incontinence 05/02/2016 Musculoskeletal No stiffness 05/02/2016 Musculoskeletal No swelling 05/02/2016 Musculoskeletal No muscle weakness 2015 Musculoskeletal No myalgias 05/02/2016 Dermatologic No rash 05/02/2016 Dermatologic No sores 05/02/2016 Dermatologic No scar 05/02/2016 Neurologic No dizziness 05/02/2016 Neurologic No headache 05/02/2016 Neurologic No neck pain 05/02/2016 Neurologic No syncope 05/02/2016 Psychiatric No anxiety 05/02/2016 Psychiatric No depression 05/02/2016 Physical Exam Exam Name System Name Item Name Status Result Effective Dates Notes Full Exam - General 1994 Constitutional general appearance Development: well developed 12/08/2018 None Full Exam - General 1994 Constitutional general appearance Development: appears stated age 0112/08/2018 None Full Exam - General 1994 Constitutional general appearance Hygiene/Attention to Grooming: good hygiene 12/08/2018 None Full Exam - General 1995 Eyes conjunctiva /eyelids Overall: conjunctiva clear 12/08/2018 None Full Exam - General 1995 Eyes conjunctiva /eyelids Overall: cornea clear 12/08/2018 None Full Exam - General 1994 Eyes conjunctiva /eyelids Overall: eyelids normal 12/08/2018 None Full Exam - General 1994 Eyes pupils and irises Overall: pupils equal, round, reactive to light and accomodation 12/08/2018 None Full Exam - General 1995 Ears/Nose/Throat otoscopic exam Overall: external auditory canals clear 12/08/2018 None Full Exam - General 1995 Ears/Nose/Throat otoscopic exam Overall: tympanic membranes clear 12/08/2018 None Full Exam - General 1995 Ears/Nose/Throat lips/teeth/gingiva Overall: benign lips 12/08/2018 None Full Exam - General 1995 Ears/Nose/Throat lips/teeth/gingiva Overall: normal dentition 12/08/2018 None Full Exam - General 1995 Ears/Nose/Throat oral cavity/pharynx/larynx Overall: oral mucosa clear 12/08/2018 None Full Exam - General 1995 Ears/Nose/Throat oral cavity/pharynx/larynx Overall: oropharyngeal mucosa clear 12/08/2018 None Full Exam - General 1995 Ears/Nose/Throat oral cavity/pharynx/larynx Overall: hypopharynx benign 12/08/2018 None Full Exam - General 1995 Ears/Nose/Throat oral cavity/pharynx/larynx Overall: no masses 12/08/2018 None Full Exam - General 1994 Respiratory auscultation Overall: breath sounds clear bilaterally 12/08/2018 None Full Exam - General 1994 Respiratory respiratory effort/rhythm Overall: no retractions 12/08/2018 None Full Exam - General 1994 Respiratory respiratory effort/rhythm Overall: normal rate 12/08/2018 None Full Exam - General 1994 Cardiovascular extremities Overall: no clubbing 12/08/2018 None Full Exam - General 1994 Cardiovascular auscultation of heart Overall: regular rate 12/08/2018 None Full Exam - General 1994 Cardiovascular auscultation of heart Overall: normal heart sounds 12/08/2018 None Full Exam - General 1994 Abdomen abdominal exam Overall: no tenderness 12/08/2018 None Full Exam - General 1994 Abdomen abdominal exam Overall: normal bowel sounds 12/08/2018 None Full Exam - General 1994 Lymphatic neck nodes Overall: anterior cervical chain benign 12/08/2018 None Full Exam - General 1995 Lymphatic neck nodes Overall: posterior cervical chain benign 12/08/2018 None Full Exam - General 1995 Musculoskeletal spine, ribs and pelvis Overall: spine benign 12/08/2018 None Full Exam - General 1994 Musculoskeletal spine, ribs and pelvis Overall: sacroiliac joint benign 12/08/2018 None Full Exam - General 1994 Musculoskeletal spine, ribs and pelvis Overall: good posture 12/08/2018 None Full Exam - General 1994 Musculoskeletal head and neck Overall: head atraumatic 12/08/2018 None Full Exam - General 1994 Musculoskeletal head and neck Overall: cervical spine benign 12/08/2018 None Full Exam - General 1994 Neurologic deep tendon reflexes Overall: deep tendon reflexes intact 12/08/2018 None Full Exam - General 1994 Neurologic cranial nerves Overall: crainial nerves 2 - 12 grossly intact 12/08/2018 None Full Exam - General 1994 Psychiatric orientation/consciousness Overall: oriented to person, place and time 12/08/2018 None Full Exam - General 1994 Psychiatric mood and affect Overall: normal mood and affect 12/08/2018 None Full Exam - General 1994 Integument inspection of skin Location: chest 12/08/2018 actinic keratosis Full Exam - General 1994 Integument inspection of skin Location: back 12/08/2018 actinic keratosis Full Exam - General 1994 Constitutional general appearance Development: well developed 05/29/2018 None Full Exam - General 1994 Constitutional general appearance Development: appears stated age 0605/29/2018 None Full Exam - General 1994 Constitutional general appearance Hygiene/Attention to Grooming: good hygiene 05/29/2018 None Full Exam - General 1994 Eyes conjunctiva /eyelids Overall: conjunctiva clear 05/29/2018 None Full Exam - General 1994 Eyes conjunctiva /eyelids Overall: cornea clear 05/29/2018 None Full Exam - General 1994 Eyes conjunctiva /eyelids Overall: eyelids normal 05/29/2018 None Full Exam - General 1994 Eyes pupils and irises Overall: pupils equal, round, reactive to light and accomodation 05/29/2018 None Full Exam - General 1994 Ears/Nose/Throat oral cavity/pharynx/larynx Overall: oropharyngeal mucosa clear 05/29/2018 None Full Exam - General 1994 Ears/Nose/Throat oral cavity/pharynx/larynx Overall: hypopharynx benign 05/29/2018 None Full Exam - General 1994 Ears/Nose/Throat oral cavity/pharynx/larynx Overall: no masses 05/29/2018 None Full Exam - General 1994 Respiratory auscultation Overall: breath sounds clear bilaterally 05/29/2018 None Full Exam - General 1994 Respiratory respiratory effort/rhythm Overall: no retractions 05/29/2018 None Full Exam - General 1994 Respiratory respiratory effort/rhythm Overall: normal rate 05/29/2018 None Full Exam - General 1994 Cardiovascular extremities Overall: no clubbing 05/29/2018 None Full Exam - General 1994 Cardiovascular auscultation of heart Overall: regular rate 05/29/2018 None Full Exam - General 1994 Cardiovascular auscultation of heart Overall: normal heart sounds 05/29/2018 None Full Exam - General 1994 Musculoskeletal spine, ribs and pelvis Overall: spine benign 05/29/2018 None Full Exam - General 1994 Musculoskeletal spine, ribs and pelvis Overall: sacroiliac joint benign 05/29/2018 None Full Exam - General 1994 Musculoskeletal spine, ribs and pelvis Overall: good posture 05/29/2018 None Full Exam - General 1994 Musculoskeletal head and neck Overall: head atraumatic 05/29/2018 None Full Exam - General 1994 Musculoskeletal head and neck Overall: cervical spine benign 05/29/2018 None Full Exam - General 1994 Psychiatric orientation/consciousness Overall: oriented to person, place and time 05/29/2018 None Full Exam - General 1994 Psychiatric mood and affect Overall: normal mood and affect 05/29/2018 None Full Exam - General 1994 Constitutional general appearance Development: well developed 05/01/2018 None Full Exam - General 1994 Constitutional general appearance Development: appears stated age 0505/01/2018 None Full Exam - General 1994 Constitutional general appearance Hygiene/Attention to Grooming: good hygiene 05/01/2018 None Full Exam - General 1994 Eyes conjunctiva /eyelids Overall: conjunctiva clear 05/01/2018 None Full Exam - General 1994 Eyes conjunctiva /eyelids Overall: cornea clear 05/01/2018 None Full Exam - General 1994 Eyes conjunctiva /eyelids Overall: eyelids normal 05/01/2018 None Full Exam - General 1994 Eyes pupils and irises Overall: pupils equal, round, reactive to light and accomodation 05/01/2018 None Full Exam - General 1994 Ears/Nose/Throat otoscopic exam Overall: external auditory canals clear 05/01/2018 None Full Exam - General 1994 Ears/Nose/Throat otoscopic exam Overall: tympanic membranes clear 05/01/2018 None Full Exam - General 1994 Ears/Nose/Throat lips/teeth/gingiva Overall: benign lips 05/01/2018 None Full Exam - General 1994 Ears/Nose/Throat lips/teeth/gingiva Overall: normal dentition 05/01/2018 None Full Exam - General 1994 Ears/Nose/Throat oral cavity/pharynx/larynx Overall: oral mucosa clear 05/01/2018 None Full Exam - General 1994 Ears/Nose/Throat oral cavity/pharynx/larynx Overall: oropharyngeal mucosa clear 05/01/2018 None Full Exam - General 1994 Ears/Nose/Throat oral cavity/pharynx/larynx Overall: hypopharynx benign 05/01/2018 None Full Exam - General 1994 Ears/Nose/Throat oral cavity/pharynx/larynx Overall: no masses 05/01/2018 None Full Exam - General 1994 Respiratory auscultation Overall: breath sounds clear bilaterally 05/01/2018 None Full Exam - General 1994 Respiratory respiratory effort/rhythm Overall: no retractions 05/01/2018 None Full Exam - General 1994 Respiratory respiratory effort/rhythm Overall: normal rate 05/01/2018 None Full Exam - General 1994 Cardiovascular extremities Overall: no clubbing 05/01/2018 None Full Exam - General 1994 Cardiovascular auscultation of heart Overall: regular rate 05/01/2018 None Full Exam - General 1994 Cardiovascular auscultation of heart Overall: normal heart sounds 05/01/2018 None Full Exam - General 1994 Abdomen abdominal exam Overall: no tenderness 05/01/2018 None Full Exam - General 1994 Abdomen abdominal exam Overall: normal bowel sounds 05/01/2018 None Full Exam - General 1994 Lymphatic neck nodes Overall: anterior cervical chain benign 05/01/2018 None Full Exam - General 1994 Lymphatic neck nodes Overall: posterior cervical chain benign 05/01/2018 None Full Exam - General 1994 Musculoskeletal spine, ribs and pelvis Overall: spine benign 05/01/2018 None Full Exam - General 1994 Musculoskeletal spine, ribs and pelvis Overall: sacroiliac joint benign 05/01/2018 None Full Exam - General 1994 Musculoskeletal spine, ribs and pelvis Overall: good posture 05/01/2018 None Full Exam - General 1994 Musculoskeletal head and neck Overall: head atraumatic 05/01/2018 None Full Exam - General 1994 Musculoskeletal head and neck Overall: cervical spine benign 05/01/2018 None Full Exam - General 1994 Integument inspection of skin Location: face 05/01/2018 on nose - nasal alae on right - right side-burn region, posterior scalp on right Full Exam - General 1994 Neurologic deep tendon reflexes Overall: deep tendon reflexes intact 05/01/2018 None Full Exam - General 1994 Neurologic cranial nerves Overall: crainial nerves 2 - 12 grossly intact 05/01/2018 None Full Exam - General 1994 Psychiatric orientation/consciousness Overall: oriented to person, place and time 05/01/2018 None Full Exam - General 1994 Psychiatric mood and affect Overall: normal mood and affect 05/01/2018 None Full Exam - Dermatology Constitutional general appearance Overall: well nourished 09/05/2017 None Full Exam - Dermatology Constitutional general appearance Overall: well developed 09/05/2017 None Full Exam - Dermatology Constitutional general appearance Overall: in no acute distress 09/05/2017 None Full Exam - Dermatology Eyes conjunctiva/ eyelids Overall: clear conjunctiva bilaterally 09/05/2017 None Full Exam - Dermatology Eyes conjunctiva/ eyelids Overall: normal eyelids 09/05/2017 None Full Exam - Dermatology Ears/Nose/Throat lips/teeth/gingiva Overall: benign lips 09/05/2017 None Full Exam - Dermatology Ears/Nose/Throat oropharynx Overall: clear oral mucosa 09/05/2017 None Full Exam - Dermatology Respiratory respiratory effort/rhythm Overall: no retractions 09/05/2017 None Full Exam - Dermatology Respiratory respiratory effort/rhythm Overall: normal rate 09/05/2017 None Full Exam - Dermatology Musculoskeletal head and neck Overall: head atraumatic 09/05/2017 None Full Exam - Dermatology Integument insp & palp - genitalia/groin/buttocks Location: on the left groin 09/05/2017 None Full Exam - Dermatology Integument insp & palp - genitalia/groin/buttocks Location: on the right groin 09/05/2017 None Full Exam - Dermatology Integument insp & palp - genitalia/groin/buttocks Color: erythematous 09/05/2017 None Full Exam - Dermatology Integument insp & palp - genitalia/groin/buttocks Lesion: patch 09/05/2017 None Full Exam - Dermatology Integument insp & palp - abdomen Location: on the lower abdomen 09/05/2017 None Full Exam - Dermatology Integument insp & palp - abdomen Lesion: patch 09/05/2017 None Full Exam - Dermatology Integument insp & palp - abdomen Color: erythematous 09/05/2017 None Full Exam - Dermatology Psychiatric orientation Overall: oriented to person, place and time 09/05/2017 None Full Exam - Dermatology Psychiatric mood and affect Overall: normal mood and affect 09/05/2017 None Full Exam - General 1994 Constitutional general appearance Development: well developed 05/21/2017 None Full Exam - General 1994 Constitutional general appearance Development: appears stated age 0605/21/2017 None Full Exam - General 1994 Constitutional general appearance Hygiene/Attention to Grooming: good hygiene 05/21/2017 None Full Exam - General 1994 Eyes conjunctiva /eyelids Overall: conjunctiva clear 05/21/2017 None Full Exam - General 1994 Eyes conjunctiva /eyelids Overall: cornea clear 05/21/2017 None Full Exam - General 1994 Eyes conjunctiva /eyelids Overall: eyelids normal 05/21/2017 None Full Exam - General 1994 Eyes pupils and irises Overall: pupils equal, round, reactive to light and accomodation 05/21/2017 None Full Exam - General 1994 Ears/Nose/Throat otoscopic exam Overall: external auditory canals clear 05/21/2017 None Full Exam - General 1994 Ears/Nose/Throat otoscopic exam Overall: tympanic membranes clear 05/21/2017 None Full Exam - General 1994 Ears/Nose/Throat lips/teeth/gingiva Overall: benign lips 05/21/2017 None Full Exam - General 1994 Ears/Nose/Throat lips/teeth/gingiva Overall: normal dentition 05/21/2017 None Full Exam - General 1994 Ears/Nose/Throat oral cavity/pharynx/larynx Overall: oral mucosa clear 05/21/2017 None Full Exam - General 1994 Ears/Nose/Throat oral cavity/pharynx/larynx Overall: oropharyngeal mucosa clear 05/21/2017 None Full Exam - General 1994 Ears/Nose/Throat oral cavity/pharynx/larynx Overall: hypopharynx benign 05/21/2017 None Full Exam - General 1994 Ears/Nose/Throat oral cavity/pharynx/larynx Overall: no masses 05/21/2017 None Full Exam - General 1994 Respiratory auscultation Overall: breath sounds clear bilaterally 05/21/2017 None Full Exam - General 1994 Respiratory respiratory effort/rhythm Overall: no retractions 05/21/2017 None Full Exam - General 1994 Respiratory respiratory effort/rhythm Overall: normal rate 05/21/2017 None Full Exam - General 1994 Cardiovascular extremities Overall: no clubbing 05/21/2017 None Full Exam - General 1994 Cardiovascular auscultation of heart Overall: regular rate 05/21/2017 None Full Exam - General 1994 Cardiovascular auscultation of heart Overall: normal heart sounds 05/21/2017 None Full Exam - General 1994 Abdomen abdominal exam Overall: no tenderness 05/21/2017 None Full Exam - General 1994 Abdomen abdominal exam Overall: normal bowel sounds 05/21/2017 None Full Exam - General 1994 Lymphatic neck nodes Overall: anterior cervical chain benign 05/21/2017 None Full Exam - General 1994 Lymphatic neck nodes Overall: posterior cervical chain benign 05/21/2017 None Full Exam - General 1994 Musculoskeletal spine, ribs and pelvis Overall: spine benign 05/21/2017 None Full Exam - General 1994 Musculoskeletal spine, ribs and pelvis Overall: sacroiliac joint benign 05/21/2017 None Full Exam - General 1994 Musculoskeletal spine, ribs and pelvis Overall: good posture 05/21/2017 None Full Exam - General 1994 Musculoskeletal head and neck Overall: head atraumatic 05/21/2017 None Full Exam - General 1994 Musculoskeletal head and neck Overall: cervical spine benign 05/21/2017 None Full Exam - General 1994 Neurologic deep tendon reflexes Overall: deep tendon reflexes intact 05/21/2017 None Full Exam - General 1994 Neurologic cranial nerves Overall: crainial nerves 2 - 12 grossly intact 05/21/2017 None Full Exam - General 1994 Psychiatric orientation/consciousness Overall: oriented to person, place and time 05/21/2017 None Full Exam - General 1994 Psychiatric mood and affect Overall: normal mood and affect 05/21/2017 None Full Exam - General 1994 Integument inspection of skin Location: face 05/21/2017 on nose - nasal alae on right - right forearm nodular lesion Full Exam - General 1994 Constitutional general appearance Development: well developed 05/02/2016 None Full Exam - General 1994 Constitutional general appearance Development: appears stated age 0605/02/2016 None Full Exam - General 1994 Constitutional general appearance Hygiene/Attention to Grooming: good hygiene 05/02/2016 None Full Exam - General 1994 Eyes conjunctiva /eyelids Overall: conjunctiva clear 05/02/2016 None Full Exam - General 1994 Eyes conjunctiva /eyelids Overall: cornea clear 05/02/2016 None Full Exam - General 1994 Eyes conjunctiva /eyelids Overall: eyelids normal 05/02/2016 None Full Exam - General 1994 Eyes pupils and irises Overall: pupils equal, round, reactive to light and accomodation 05/02/2016 None Full Exam - General 1994 Ears/Nose/Throat otoscopic exam Overall: external auditory canals clear 05/02/2016 None Full Exam - General 1994 Ears/Nose/Throat otoscopic exam Overall: tympanic membranes clear 05/02/2016 None Full Exam - General 1994 Ears/Nose/Throat lips/teeth/gingiva Overall: benign lips 05/02/2016 None Full Exam - General 1994 Ears/Nose/Throat lips/teeth/gingiva Overall: normal dentition 05/02/2016 None Full Exam - General 1994 Ears/Nose/Throat oral cavity/pharynx/larynx Overall: oral mucosa clear 05/02/2016 None Full Exam - General 1994 Ears/Nose/Throat oral cavity/pharynx/larynx Overall: oropharyngeal mucosa clear 05/02/2016 None Full Exam - General 1994 Ears/Nose/Throat oral cavity/pharynx/larynx Overall: hypopharynx benign 05/02/2016 None Full Exam - General 1994 Ears/Nose/Throat oral cavity/pharynx/larynx Overall: no masses 05/02/2016 None Full Exam - General 1994 Respiratory auscultation Overall: breath sounds clear bilaterally 05/02/2016 None Full Exam - General 1994 Respiratory respiratory effort/rhythm Overall: no retractions 05/02/2016 None Full Exam - General 1994 Respiratory respiratory effort/rhythm Overall: normal rate 05/02/2016 None Full Exam - General 1994 Cardiovascular extremities Overall: no clubbing 05/02/2016 None Full Exam - General 1994 Cardiovascular auscultation of heart Overall: regular rate 05/02/2016 None Full Exam - General 1994 Cardiovascular auscultation of heart Overall: normal heart sounds 05/02/2016 None Full Exam - General 1994 Abdomen abdominal exam Overall: no tenderness 05/02/2016 None Full Exam - General 1994 Abdomen abdominal exam Overall: normal bowel sounds 05/02/2016 None Full Exam - General 1994 Lymphatic neck nodes Overall: anterior cervical chain benign 05/02/2016 None Full Exam - General 1994 Lymphatic neck nodes Overall: posterior cervical chain benign 05/02/2016 None Full Exam - General 1994 Musculoskeletal spine, ribs and pelvis Overall: spine benign 05/02/2016 None Full Exam - General 1994 Musculoskeletal spine, ribs and pelvis Overall: sacroiliac joint benign 05/02/2016 None Full Exam - General 1994 Musculoskeletal spine, ribs and pelvis Overall: good posture 05/02/2016 None Full Exam - General 1994 Musculoskeletal head and neck Overall: head atraumatic 05/02/2016 None Full Exam - General 1994 Musculoskeletal head and neck Overall: cervical spine benign 05/02/2016 None Full Exam - General 1994 Integument inspection of skin Overall: few scattered moles, no gross abnormalities 05/02/2016 None Full Exam - General 1994 Neurologic deep tendon reflexes Overall: deep tendon reflexes intact 05/02/2016 None Full Exam - General 1994 Neurologic cranial nerves Overall: crainial nerves 2 - 12 grossly intact 05/02/2016 None Full Exam - General 1994 Psychiatric orientation/consciousness Overall: oriented to person, place and time 05/02/2016 None Full Exam - General 1994 Psychiatric mood and affect Overall: normal mood and affect 05/02/2016 None Procedures Procedure Codes Date DESTRUCT PREMALG LESION CPT-4: 13834 12/08/2018 DESTRUCT PREMALG LES 2-14 CPT-4: 75355 12/08/2018 DESTRUCT PREMALG LESION CPT-4: 13413 05/01/2018 DESTRUCT PREMALG LES 2-14 CPT-4: 55276 05/01/2018 IIV4 VACC NO PRSV 3 YRS+ IM CPT-4: 96904 09/05/2017 FLU VAC NO PRSV 4 RENATO 3 YRS+ CPT-4: 50880 09/05/2017 ADMIN INFLUENZA VIRUS VAC CPT-4: G0008 09/05/2017 IIV4 VACC NO PRSV 3 YRS+ IM CPT-4: 35808 09/05/2017 THER/PROPH/DIAG INJ SC/IM CPT-4: 57811 09/05/2017 TRIAMCINOLONE ACET INJ NOS CPT-4: J3301 09/05/2017 DESTRUCT PREMALG LESION CPT-4: 82143 05/21/2017 DESTRUCT PREMALG LES 2-14 CPT-4: 64559 05/21/2017 PNEUMOCOCCAL VACC 13 RENATO IM Assigned to/Viola Baker, Formatting Model/CDA Sections SNOMED CT: 62441819 CPT-4: 14020Gdkxyhy 05/02/2016 IMMUNIZATION ADMIN CPT -4: 76704 05/02/2016 Vital Signs Date Vital 12/08/2018 Blood Pressure 1: 128/78 Code : 8480-6 BMI: 30.6 Code : 44370-5 Heart Rate 1 : 76 bpm Height: 5'3" SpO2: 98% Weight: 173 lbs 05/29/2018 Blood Pressure 1: 140/80 Code : 8480-6 Blood Pressure 2: 120/80 Code: 8480-6 BMI: 31.1 Code: 23417-5 Heart Rate 1: 108 bpm Height: 5'3" SpO2: 98% Weight: 175 lbs 13 oz 05/01/2018 Blood Pressure 1: 152/92 Code : 8480-6 BMI: 31.2 Code : 19119-8 Heart Rate 1 : 81 bpm Height: 5'3" SpO2: 97% Weight: 176 lbs 09/05/2017 Blood Pressure 1: 138/68 Code : 8480-6 BMI: 30.8 Code : 23820-9 Heart Rate 1 : 111 bpm Height: 5'3" SpO2: 98% Weight: 174 lbs 05/21/2017 Blood Pressure 1: 132/88 Code : 8480-6 BMI: 30.6 Code : 96766-8 Heart Rate 1 : 88 bpm Height: 5'3" SpO2: 97% Weight: 173 lbs 05/02/2016 Blood Pressure 1: 138/88 Code : 8480-6 BMI: 30.6 Code : 16465-6 Heart Rate 1 : 77 bpm Height: 5'3" SpO2: 97% Weight: 172 lbs 8 oz Functional Status No Functional Status data History of Present Illness Symptom Name Status Result Effective Date Notes Quality primary hypertension 12/08/2018 None Onset and Resolution ongoing 12/08/2018 None Onset of Symptom during adulthood 12/08/2018 None Alleviating Factors medication 12/08/2018 None Blood Pressure Values not checking blood pressure at home 12/08/2018 None Pertinent Findings Denies dizziness 12/08/2018 None Pertinent Findings Denies dyspnea 12/08/2018 None Pertinent Findings Denies edema 12/08/2018 None blood pressure followup Quality chronic 05/29/2018 None blood pressure followup Onset and Resolution ongoing 05/29/2018 None blood pressure followup Onset of Symptom during adulthood 05/29/2018 None blood pressure followup Alleviating Factors medication 05/29/2018 None blood pressure followup Significant Medical Conditions cardiac disease 05/29/2018 None hyperlipidemia Onset and Resolution gradual in onset 05/01/2018 None hyperlipidemia Onset of Symptom _ years ago 05/01/2018 None hyperlipidemia Pertinent Findings Denies fever 05/01/2018 None hyperlipidemia Pertinent Findings Denies nausea 05/01/2018 None hyperlipidemia Pertinent Findings Denies weight loss 05/01/2018 None rash Location-Major in the groin area 09/05/2017 None rash Location-Trunk on the lower abdomen 09/05/2017 None rash Location-Trunk on the perineum 09/05/2017 None rash Color red 2016 None rash Onset of Symptom 2 weeks ago 09/05/2017 None rash Triggers no known triggers 09/05/2017 None rash Pertinent Findings itching 09/05/2017 None rash Pertinent Findings tenderness 09/05/2017 None hyperlipidemia Onset and Resolution gradual in onset 05/21/2017 None hyperlipidemia Onset of Symptom _ years ago 05/21/2017 None hyperlipidemia Pertinent Findings Denies fever 05/21/2017 None hyperlipidemia Pertinent Findings Denies nausea 05/21/2017 None hyperlipidemia Pertinent Findings Denies weight loss 05/21/2017 None well woman exam (65+ years) Pap Smear last normal performed on April 2015 05/02/2016 None well woman exam (65+ years) Obstetrical History 3 total pregnancies 05/02/2016 None well woman exam (65+ years) Lifestyle regular seatbelt use 05/02/2016 None well woman exam (65+ years) Lifestyle normal sleep patterns 05/02/2016 None well woman exam (65+ years) Lifestyle normal amount of stress 05/02/2016 None well woman exam (65+ years) Lifestyle family supportive 05/02/2016 None well woman exam (65+ years) Lifestyle satisfactory work/jail experience 05/02/2016 None well woman exam (65+ years) Lifestyle satisfactory marriage/partner relationship 05/02/2016 None well woman exam (65+ years) Menstrual History menopause at age 49 05/02/2016 None well woman exam (65+ years) Health Guidance regular mammogram 05/02/2016 None well woman exam (65+ years) Health Guidance safety belt use 05/02/2016 None well woman exam (65+ years) Nutrition and Exercise balanced nutrition 05/02/2016 None well woman exam (65+ years) Nutrition and Exercise regular diet 05/02/2016 None well woman exam (65+ years) Nutrition and Exercise moderate exercise 05/02/2016 None Advance Directives No Advance Directive data Encounters Encounter Performer Location Codes Date ([id number]) [id number] EST. PATIENT, LEVEL IV Diagnosis: Essential (primary) hypertension[ICD10: I10] Diagnosis: Actinic keratosis[ICD10: L57.0] Diagnosis: Mixed hyperlipidemia[ICD10: E78.2] Bre Dye MD, [facility] CPT-4: 56497 12/08/2018 [id number] 56506 EST. PATIENT, LEVEL III Diagnosis: Essential (primary) hypertension[ICD10: I10] BRONWYN Gamino MD CPT-4: 17796 05/29/2018 ([id number]) 38514 EST. PATIENT, LEVEL IV Diagnosis: Essential (primary) hypertension[ICD10: I10] Diagnosis: Mixed hyperlipidemia[ICD10: E78.2] Diagnosis: Actinic keratosis[ICD10: L57.0] BRONWYN Gamino MD CPT- 4: 31969 05/01/2018 [id number] EST. PATIENT, LEVEL III Diagnosis: Rash and other nonspecific skin eruption[ICD10: R21] Diagnosis: Encounter for immunization[ICD10: Z23] Christina Dye MD, [facility] CPT-4: 46374 09/05/2017 [id number]) [id number] EST. PATIENT, LEVEL IV Diagnosis: Mixed hyperlipidemia[ICD10: E78.2] Diagnosis: Vitamin D deficiency, unspecified[ICD10: E55.9] Diagnosis: Actinic keratosis[ICD10: L57.0] Bre Dye MD, [facility] CPT- 4: 40759 05/21/2017 ([id number]) OFFICE VISIT, NEW - LEVEL 3 Diagnosis: Vitamin D deficiency, unspecified[ICD10: E55.9] Diagnosis: Encounter for general adult medical examination without abnormal findings[ICD10: Z00.00] Diagnosis: Encounter for immunization[ICD10: Z23] [facility] CPT-4: 28535 05/02/2016 Plan of Care Planned Activity Notes Codes Status Date Visit Plan: Hypertension - well controlled - continue with current medications, continue with no added salt diet. Pt has been encouraged to exercise daily. The pt has been advised to call the office if there are any acute concerns about change in blood pressure readings at home. Actinic Keratosis - treated with cryotherapy x 3, pt advised on how to appropriately care for the lesion. Call if not improved after thorough healing. Hyperlipidemia - pt has been counseled about appropriate diet, exercise, and need for low fat food choices. I have discussed the need for the patient to take medications as prescribed. If the patient has negative side effects from the medication, they are to CALL the office and not abruptly discontinue the medication without discussion with a practitioner in the office. We will check labs in 3-6 months for follow up on the patient's chronic medical problem and to assure normal liver response to medications. 12/08/2018 Visit Plan: Hypertension - well controlled - continue with current medications, continue with no added salt diet. Pt has been encouraged to exercise daily. The pt has been advised to call the office if there are any acute concerns about change in blood pressure readings at home. Actinic Keratosis - treated with cryotherapy x 3, pt advised on how to appropriately care for the lesion. Call if not improved after thorough healing. Hyperlipidemia - pt has been counseled about appropriate diet, exercise, and need for low fat food choices. I have discussed the need for the patient to take medications as prescribed. If the patient has negative side effects from the medication, they are to CALL the office and not abruptly discontinue the medication without discussion with a practitioner in the office. We will check labs in 3-6 months for follow up on the patient's chronic medical problem and to assure normal liver response to medications. 12/08/2018 [phone] [facility] (15 min) Moderate 12/08/2018 Patient Education: Patient Medication Summary Completed 12/08/2018 Patient Education: Cholesterol Management Completed 12/08/2018 Visit Plan: Hypertension - well controlled - continue with current medications, continue with no added salt diet. Pt has been encouraged to exercise daily. The pt has been advised to call the office if there are any acute concerns about change in blood pressure readings at home. 05/29/2018 [facility]ment[phone] (15 min) Moderate 05/29/2018 Patient Education: Patient Medication Summary Completed 05/29/2018 Visit Plan: Hypertension - uncontrolled - the patient's medications have been modified as documented in the visit note. The patient has been counseled to cut back on salt in diet for a no added salt diet, low fat diet, start an exercise program with low weight bearing exercises and higher aerobic activity for heart health. The patient is to check blood pressure readings as an outpatient and either fax, call, or email the readings to the office next week for practitioner to review. The pt is to call for acute concerns. start on losartan 50mg daily Hyperlipidemia - pt has been counseled about appropriate diet, exercise, and need for low fat food choices. I have discussed the need for the patient to take medications as prescribed. If the patient has negative side effects from the medication, they are to CALL the office and not abruptly discontinue the medication without discussion with a practitioner in the office. We will check labs in 3-6 months for follow up on the patient's chronic medical problem and to assure normal liver response to medications. Actinic Keratosis - treated with cryotherapy x 3 on right side of nose, right side-burn region, posterior scalp on right, pt advised on how to appropriately care for the lesion. Call if not improved after thorough healing. 05/01/2018 Appointment: Bre Dye WPtel: [facility] (15 min) Moderate 05/01/2018 Patient Education: Patient Medication Summary Completed 05/01/2018 Appointment: Bre Dye WPtel: [facility] (15 min) Moderate 04/24/2018 Patient Education: Patient Medication Summary Completed 01/20/2018 Care Plan: SCREENINGMAMMOGRAPHYDIGITAL LOINC : 27079-2 Pending 01/20/2018 Visit Plan: Allergic Reaction/Hives - discussed diagnosis with patient, need to avoid allergen, and when/if the patient should go to the emergency room. Pt was instructed to take benadryl 25mg q 6 hours x 48 hours, and pepcid 20mg bid x 48 hours, pt also given RX for prednisone taper. 09/05/2017 Appointment: Christina Swanson WPtel: [facility] [place] (15 min) Moderate 09/05/2017 Patient Education: Patient Medication Summary Completed 09/05/2017 Patient Education: Obesity Completed 09/05/2017 Visit Plan: Hyperlipidemia - pt has been counseled about appropriate diet, exercise, and need for low fat food choices. I have discussed the need for the patient to take medications as prescribed. If the patient has negative side effects from the medication, they are to CALL the office and not abruptly discontinue the medication without discussion with a practitioner in the office. We will check labs in 3-6 months for follow up on the patient's chronic medical problem and to assure normal liver response to medications. cryotherpy of nose and right forearm 05/21/2017 Visit Plan: Hyperlipidemia - pt has been counseled about appropriate diet, exercise, and need for low fat food choices. I have discussed the need for the patient to take medications as prescribed. If the patient has negative side effects from the medication, they are to CALL the office and not abruptly discontinue the medication without discussion with a practitioner in the office. We will check labs in 3-6 months for follow up on the patient's chronic medical problem and to assure normal liver response to medications. cryotherpy of nose and right forearm 05/21/2017 Appointment: Bre Dye WPtel: [phone] [facility] (15 min) Moderate 05/21/2017 Patient Education: Patient Medication Summary Completed 05/21/2017 [phone] (15 min) Moderate 05/08/2017 Visit Plan: Well Adult - pt was counseled about diet, exercise, and encouraged to follow a heart healthy diet and increase activity level. The patient was instructed to RTC yearly for well adult exams and PRN for acute illnesses. The pt was also instructed to have yearly labs for check of cholesterol, thyroid, chem panel, CBC, and renal functioning. 05/02/2016 Appointment: [phone] [place] ([place] New Patient 05/02/2016 Patient Education: Patient Medication Summary Completed 05/02/2016 Patient Education: Obesity Completed 05/02/2016 Instructions Comment . Well Adult - pt was counseled about diet, exercise, and encouraged to follow a heart healthy diet and increase activity level. The patient was instructed to RTC yearly for well adult exams and PRN for acute illnesses. The pt was also instructed to have yearly labs for check of cholesterol, thyroid, chem panel, CBC, and renal functioning. . Hyperlipidemia - pt has been counseled about appropriate diet, exercise, and need for low fat food choices. I have discussed the need for the patient to take medications as prescribed. If the patient has negative side effects from the medication, they are to CALL the office and not abruptly discontinue the medication without discussion with a practitioner in the office. We will check labs in 3-6 months for follow up on the patient's chronic medical problem and to assure normal liver response to medications. cryotherpy of nose and right forearm . Hyperlipidemia - pt has been counseled about appropriate diet, exercise, and need for low fat food choices. I have discussed the need for the patient to take medications as prescribed. If the patient has negative side effects from the medication, they are to CALL the office and not abruptly discontinue the medication without discussion with a practitioner in the office. We will check labs in 3-6 months for follow up on the patient's chronic medical problem and to assure normal liver response to medications. cryotherpy of nose and right forearm . Hypertension - well controlled - continue with current medications, continue with no added salt diet. Pt has been encouraged to exercise daily. The pt has been advised to call the office if there are any acute concerns about change in blood pressure readings at home. . Hypertension - uncontrolled - the patient's medications have been modified as documented in the visit note. The patient has been counseled to cut back on salt in diet for a no added salt diet, low fat diet, start an exercise program with low weight bearing exercises and higher aerobic activity for heart health. The patient is to check blood pressure readings as an outpatient and either fax , call, or email the readings to the office next week for practitioner to review. The pt is to call for acute concerns. start on losartan 50mg daily Hyperlipidemia - pt has been counseled about appropriate diet, exercise, and need for low fat food choices. I have discussed the need for the patient to take medications as prescribed. If the patient has negative side effects from the medication, they are to CALL the office and not abruptly discontinue the medication without discussion with a practitioner in the office. We will check labs in 3-6 months for follow up on the patient's chronic medical problem and to assure normal liver response to medications. Actinic Keratosis - treated with cryotherapy x 3 on right side of nose, right side-burn region, posterior scalp on right, pt advised on how to appropriately care for the lesion. Call if not improved after thorough healing. . Hypertension - well controlled - continue with current medications, continue with no added salt diet. Pt has been encouraged to exercise daily. The pt has been advised to call the office if there are any acute concerns about change in blood pressure readings at home. Actinic Keratosis - treated with cryotherapy x 3, pt advised on how to appropriately care for the lesion. Call if not improved after thorough healing. Hyperlipidemia - pt has been counseled about appropriate diet, exercise, and need for low fat food choices. I have discussed the need for the patient to take medications as prescribed. If the patient has negative side effects from the medication, they are to CALL the office and not abruptly discontinue the medication without discussion with a practitioner in the office. We will check labs in 3-6 months for follow up on the patient's chronic medical problem and to assure normal liver response to medications. . Hypertension - well controlled - continue with current medications, continue with no added salt diet. Pt has been encouraged to exercise daily. The pt has been advised to call the office if there are any acute concerns about change in blood pressure readings at home. Actinic Keratosis - treated with cryotherapy x 3, pt advised on how to appropriately care for the lesion. Call if not improved after thorough healing. Hyperlipidemia - pt has been counseled about appropriate diet, exercise, and need for low fat food choices. I have discussed the need for the patient to take medications as prescribed. If the patient has negative side effects from the medication, they are to CALL the office and not abruptly discontinue the medication without discussion with a practitioner in the office. We will check labs in 3-6 months for follow up on the patient's chronic medical problem and to assure normal liver response to medications. take benadryl 25mg q 6 hours x 48 hours, and pepcid 20mg bid x 48 hours, pt also given RX for prednisone taper. Steroid shot today, start Prednisone tomorrow in the morning. . Allergic Reaction/Hives - discussed diagnosis with patient, need to avoid allergen, and when/if the patient should go to the emergency room. Pt was instructed to take benadryl 25mg q 6 hours x 48 hours, and pepcid 20mg bid x 48 hours, pt also given RX for prednisone taper.
--- OUTSIDE RECORDS SUMMARY | 2019-02-06 08:17 | XMS REPORT | CCD ---
Author Author [facility] Organization [facility] Address [address] [place] [address] Phone Care Team Providers Care Marketing Services Specialist Name Role Phone PP Unavailable CCM Unavailable Summary Purpose Interface Exchange Insurance Providers Payer name Policy type / Coverage type Covered libertarian ID Effective Begin Date Effective End Date WPS Medicare Part B Medicare Part B [id number] Unknown Bankers Damar Medicare Part B [id number] Unknown Family history Mother Diagnosis Age At Onset Myocardial infarction Unknown Social History Social History Element Codes Description Effective Dates Marital status Unknown Paul 05/02/2016 Number of children Unknown 3 05/02/2016 Employment Unknown Retired 05/02/[address]: 895009 Currently drinks alcohol 05/02/2016 Frequency of drinks SNOMED CT: 641153384 1-4 drinks per week 1 per week 05/02/2016 Allergies, Adverse Reactions, Alerts Substance Reaction Codes Entered Date Inactivated Date Status Lipitor RxNorm: 03143 05/14/2018 No Inactive Date Active VITAMIN E [...] betamethasone valerate 0.1 % topical ointment RxNorm: 786378 1 Application TOP BID 12/08/2018 01/06/2019 Active losartan 50 mg tablet RxNorm: 200116 1 Tablet(s) PO QPM 201708/21/2019 Active gemfibrozil 600 mg tablet RxNorm: 603467 1 Tablet(s) PO BID 05/28/2018 Inactive doing a short supply to see if she can tolerate med gemfibrozil 600 mg tablet RxNorm: 955090 1 Tablet(s) PO BID 05/13/2018 Inactive doing a short supply to see if she can tolerate med Lipitor 10 mg tablet RxNorm: 125937 1 Tablet(s) PO QHS 201705/13/2018 Inactive losartan 50 mg tablet RxNorm: 551744 1 Tablet(s) PO QPM 201705/28/2018 Inactive prednisone 20 mg tablet RxNorm: 729000 2 Tablet(s) PO daily 04/201709/09/2017 Inactive Kenalog 40 mg/mL suspension for injection RxNorm: 8731288 Milliliter(s) Inj 09/05/2017 09/05/2017 Inactive nystatin 100,000 unit/gram topical cream RxNorm: 116809 1 Gram(s) TOP TID 09/04/2017 09/03/2017 Inactive nystatin 100,000 unit/gram topical cream RxNorm: 242150 1 Gram(s) TOP TID 09/04/2017 09/10/2017 Inactive Diflucan 150 mg tablet RxNorm: 148847 1 Tablet(s) PO daily 01/201709/08/2017 Inactive Diflucan 150 mg tablet RxNorm: 826423 1 Tablet(s) PO daily 01/201709/01/2017 Inactive Lipitor 10 mg tablet RxNorm: 114648 1 Tablet(s) PO QHS 201605/21/2017 Inactive Lipitor 10 mg tablet RxNorm: 908936 1 Tablet(s) PO QHS 201604/30/2018 Inactive Vitamin D3 1,000 unit tablet RxNorm: 572938 4 Tablet(s) PO BID 10/03/2016 05/20/2017 Inactive Vitamin D2 50,000 unit capsule RxNorm: 770676 1 Capsule(s) PO QW 10/03/2016 04/30/2018 Inactive Vitamin D2 50,000 unit capsule RxNorm: 256617 1 Capsule(s) PO QW 05/31/2016 10/02/2016 Inactive Vitamin D3 1,000 unit tablet RxNorm: 690555 3 Tablet(s) PO daily No Start Date 10/02/2016 Inactive Vitamin D2 50,000 unit capsule RxNorm: 277557 1 Capsule(s) PO QW No Start Date 05/30/2016 Inactive Medication Administered Medication Codes Instructions Start Date Status Kenalog 40 mg/mL suspension for injection RxNorm: 4612997 Milliliter 09/05/2017 No longer Active Immunizations Vaccine [...] 13.9 g/dl 12/08/2018 Cbc With Differential Ord2 Neut% 57.7 % 12/08/2018 Cbc With Differential Ord2 HCT 41.6 % 12/08/2018 Cbc With Differential Ord2 Lymph% 30.6 % 12/08/2018 Cbc With Differential Ord2 MCV 88.7 fl 12/08/2018 Cbc With Differential Ord2 Doddridge% 9.1 % 12/08/2018 Cbc With Differential Ord2 MCH 29.6 pg 12/08/2018 Cbc With Differential Ord2 MCHC 33.4 pg 12/08/2018 Cbc With Differential Ord2 Eos% 2.0 % 12/08/2018 Cbc With Differential Ord2 Baso% 0.6 % 12/08/2018 Cbc With Differential Ord2 PLT 255 K/ul 12/08/2018 Cbc With Differential Ord2 RDW 13.2 % 12/08/2018 Cbc With Differential Ord2 Neut ABS# 3.75 K/ul 12/08/2018 Cbc With Differential Ord2 Lymph ABS# 1.99 K/ul 12/08/2018 Cbc With Differential Ord2 [place] ABS# 0.6 K/ul 12/08/2018 Cbc With Differential Ord2 Eos ABS# 0.1 K/ul 12/08/2018 Cbc With Differential Ord2 Baso ABS# 0.0 K/ul 12/08/2018 Comp Metabolic Hkj439 NA 141 mEq/L 12/08/2018 Comp Metabolic Ufh508 K 4.4 mEq/L 12/08/2018 Comp Metabolic Bqu573 CL 104 mEq/L 12/08/2018 Comp Metabolic Bge820 CO2 27.0 mEq/L 12/08/2018 Comp Metabolic Xot832 ANION GAP 14 12/08/2018 Comp Metabolic Pmq352 GLUCOSE 121 mg/dL 12/08/2018 Comp Metabolic Qmy833 Creat 0.9 mg/dL 12/08/2018 Comp Metabolic Ewl862 eGFR 66 ml/min/1.73m2 12/08/2018 Comp Metabolic Pni693 BUN 15 mg/dL 12/08/2018 Comp Metabolic Cjp214 B/C Ratio 17.0 Ratio 12/08/2018 Comp Metabolic Mox286 CALCIUM 9.0 mg/dL 12/08/2018 Comp Metabolic Xjg584 ALK PHOS 63 U/L 12/08/2018 Comp Metabolic Hkm376 AST(SGOT) 22 U/L 12/08/2018 Comp Metabolic Kzd643 ALT(SGPT) 27 U/L 12/08/2018 Comp Metabolic Qmd828 BILI T 0.7 mg/dL 12/08/2018 Comp Metabolic Xaf160 ALBUMIN 4.1 g/dL 12/08/2018 Comp Metabolic Mou463 TPRO 6.4 g/dL 12/08/2018 Comp Metabolic Qjg700 GLOB 2.4 g/dL 12/08/2018 Comp Metabolic Sjz935 A/G Ratio 1.7 Ratio 12/08/2018 Comp Metabolic Bsv701 Osmo 283 mOsmo 12/08/2018 Tsh Ord6 TSH (3rd IS) 3.12 uIU/mL 05/01/2018 Lipid Ord30 CHOL 212 mg/dL 05/01/2018 Lipid Ord30 HDL 47.0 mg/dl 05/01/2018 Lipid Ord30 TRIG 156 mg/dL 05/01/2018 Lipid Ord30 LDL 134 mg/dL 05/01/2018 Lipid Ord30 C/HDL 4.5 Ratio 05/01/2018 Comp Metabolic Xtz732 NA 139 mEq/L 05/01/2018 Comp Metabolic Uix344 K 4.2 mEq/L 05/01/2018 Comp Metabolic Spa607 CL 103 mEq/L 05/01/2018 Comp Metabolic Bka876 CO2 28.0 mEq/L 05/01/2018 Comp Metabolic Yjj665 ANION GAP 12 05/01/2018 Comp Metabolic Pyp372 GLUCOSE 109 mg/dL 05/01/2018 Comp Metabolic Qle044 Creat 0.9 mg/dL 05/01/2018 Comp Metabolic Upz693 eGFR 68 ml/min/1.73m2 05/01/2018 Comp Metabolic Sqq399 BUN 13 mg/dL 05/01/2018 Comp Metabolic Sab533 B/C Ratio 15.3 Ratio 05/01/2018 Comp Metabolic Yqf830 CALCIUM 9.4 mg/dL 05/01/2018 Comp Metabolic Dtr158 ALK PHOS 49 U/L 05/01/2018 Comp Metabolic Exg870 AST(SGOT) 13 U/L 05/01/2018 Comp Metabolic Yeg467 ALT(SGPT) 12 U/L 05/01/2018 Comp Metabolic Paa052 BILI T 0.6 mg/dL 05/01/2018 Comp Metabolic Lfj689 ALBUMIN 4.4 g/dL 05/01/2018 Comp Metabolic Tur989 TPRO 6.6 g/dL 05/01/2018 Comp Metabolic Pma372 GLOB 2.2 g/dL 05/01/2018 Comp Metabolic Kxu137 A/G Ratio 2.0 Ratio 05/01/2018 Comp Metabolic Tju639 Osmo 278 mOsmo 05/01/2018 Cbc With Differential [...] 35.2 % 05/01/2018 Cbc With Differential Ord2 Doddridge% 8.4 % 05/01/2018 Cbc With Differential Ord2 MCH 29.4 pg 05/01/2018 Cbc With Differential Ord2 MCHC 33.5 pg 05/01/2018 Cbc With Differential Ord2 Eos% 1.7 % 05/01/2018 Cbc With Differential Ord2 Baso% 0.6 % 05/01/2018 Cbc With Differential Ord2 PLT 263 K/ul 05/01/2018 Cbc With Differential Ord2 Neut ABS# 3.80 K/ul 05/01/2018 Cbc With Differential Ord2 RDW 13.3 % 05/01/2018 Cbc With Differential Ord2 Lymph ABS# 2.47 K/ul 05/01/2018 Cbc With Differential Ord2 [place] ABS# 0.6 K/ul 05/01/2018 Cbc With Differential Ord2 Eos ABS# 0.1 K/ul 05/01/2018 Cbc With Differential Ord2 Baso ABS# 0.0 K/ul 05/01/2018 Lipid Ord30 CHOL 217 mg/dL 05/21/2017 Lipid Ord30 HDL 45.0 mg/dl 05/21/2017 Lipid Ord30 TRIG 162 mg/dL 05/21/2017 Lipid Ord30 LDL 140 mg/dL 05/21/2017 Lipid Ord30 C/HDL 4.8 Ratio 05/21/2017 Comp Metabolic Iio758 NA 140 mEq/L 05/21/2017 Comp Metabolic Ysn428 K 5.1 mEq/L 05/21/2017 Comp Metabolic Bem656 CL 103 mEq/L 05/21/2017 Comp Metabolic Ehv947 CO2 29.0 mEq/L 05/21/2017 Comp Metabolic Cbn653 ANION GAP 13 05/21/2017 Comp Metabolic Wab434 GLUCOSE 122 mg/dL 05/21/2017 Comp Metabolic Kkx374 Creat 0.9 mg/dL 05/21/2017 Comp Metabolic Boa565 eGFR 68 ml/min/1.73m2 05/21/2017 Comp Metabolic Bws056 BUN 18 mg/dL 05/21/2017 Comp Metabolic Rdw804 B/C Ratio 20.9 Ratio 05/21/2017 Comp Metabolic Tsk281 CALCIUM 9.5 mg/dL 05/21/2017 Comp Metabolic Iwz950 ALK PHOS 64 U/L 05/21/2017 Comp Metabolic Jhm827 AST(SGOT) 14 U/L 05/21/2017 Comp Metabolic Aqp677 ALT(SGPT) 12 U/L 05/21/2017 Comp Metabolic Yhj926 BILI T 0.6 mg/dL 05/21/2017 Comp Metabolic Jjb845 ALBUMIN 4.3 g/dL 05/21/2017 Comp Metabolic Nad455 TPRO 6.9 g/dL 05/21/2017 Comp Metabolic Kzx966 GLOB 2.6 g/dL 05/21/2017 Comp Metabolic Xum182 A/G Ratio 1.6 Ratio 05/21/2017 Comp Metabolic Vgg469 Osmo 283 mOsmo 05/21/2017 Tsh Ord6 hTSH [...] 31.3 % 05/21/2017 Cbc With Differential Ord2 Doddridge% 8.6 % 05/21/2017 Cbc With Differential Ord2 MCH 29.6 pg 05/21/2017 Cbc With Differential Ord2 Eos% 1.6 % 05/21/2017 Cbc With Differential Ord2 MCHC 33.4 pg 05/21/2017 Cbc With Differential Ord2 Baso% 0.4 % 05/21/2017 Cbc With Differential Ord2 PLT 274 K/ul 05/21/2017 Cbc With Differential Ord2 RDW 13.4 % 05/21/2017 Cbc With Differential Ord2 Neut ABS# 3.92 K/ul 05/21/2017 Cbc With Differential Ord2 Lymph ABS# 2.11 K/ul 05/21/2017 Cbc With Differential Ord2 Dod[place] ABS# 0.6 K/ul 05/21/2017 Cbc With Differential Ord2 Eos ABS# 0.1 K/ul 05/21/2017 Cbc With Differential Ord2 Baso ABS# 0.0 K/ul 05/21/2017 Vitamin D 25 Oh Tpb9458 VITAMIN D, 25 HYDROXY 33.89 ng/mL Lipid [...] 29.6 pg 05/02/2016 Cbc With Differential Ord2 Dod[place]idge% 8.2 % 05/02/2016 Cbc With Differential Ord2 [...] 2.23 K/ul 05/02/2016 Cbc With Differential Ord2 [place] ABS# 0.6 K/ul 05/02/2016 Cbc With Differential Ord2 Eos ABS# 0.1 K/ul 05/02/2016 Cbc With Differential Ord2 Baso ABS# 0.0 K/ul 05/02/2016 Vitamin D 25 Oh Syf4471 VITAMIN D, 25 HYDROXY 27.21 ng/mL Comp Metabolic Ors548 NA 137 mEq/L 05/02/2016 Comp Metabolic Awy564 K 4.5 mEq/L 05/02/2016 Comp Metabolic Ewp195 CL 103 mEq/L 05/02/2016 Comp Metabolic Alv233 CO2 29.0 mEq/L 05/02/2016 Comp Metabolic Lxn167 ANION GAP 10 05/02/2016 Comp Metabolic Jvh621 GLUCOSE 115 mg/dL 05/02/2016 Comp Metabolic Dns589 Creat 0.8 mg/dL 05/02/2016 Comp Metabolic Hfd632 eGFR 70 ml/min/1.73m2 05/02/2016 Comp Metabolic Cna276 BUN 17 mg/dL 05/02/2016 Comp Metabolic Jrx096 B/C Ratio 20.2 Ratio 05/02/2016 Comp Metabolic Dgp875 CALCIUM 9.3 mg/dL 05/02/2016 Comp Metabolic Igm977 ALK PHOS 62 U/L 05/02/2016 Comp Metabolic Ngw756 AST(SGOT) 11 U/L 05/02/2016 Comp Metabolic Qcf013 ALT(SGPT) 10 U/L 05/02/2016 Comp Metabolic Byv285 BILI T 0.6 mg/dL 05/02/2016 Comp Metabolic Lwz488 ALBUMIN 4.3 g/dL 05/02/2016 Comp Metabolic Din302 TPRO 6.9 g/dL 05/02/2016 Comp Metabolic Lpy773 GLOB 2.6 g/dL 05/02/2016 Comp Metabolic Ljm660 A/G Ratio 1.6 Ratio 05/02/2016 Comp Metabolic Ihq294 Osmo 276 mOsmo 05/02/2016 Tsh Ord6 hTSH [...] hygiene 12/08/2018 None Full Exam - General 1994 Eyes conjunctiva /eyelids Overall: conjunctiva clear 12/08/2018 [...] 12/08/2018 None Full Exam - General 1994 Ears/Nose/Throat lips/teeth/gingiva Overall: benign lips 12/08/2018 None [...] 12/08/2018 None Full Exam - General 1994 Ears/Nose/Throat oral cavity/pharynx/larynx Overall: no masses 12/08/2018 [...] tenderness 12/08/2018 None Full Exam - General 1995 Abdomen abdominal exam Overall: normal bowel sounds 12/08/2018 None Full Exam - General 1995 Lymphatic neck nodes Overall: anterior cervical chain benign 12/08/2018 None Full Exam - General 1995 Lymphatic neck nodes Overall: posterior cervical chain benign 12/08/2018 None Full Exam - General 1995 Musculoskeletal spine, ribs and pelvis Overall: spine benign 12/08/2018 None Full Exam - General 1995 Musculoskeletal spine, ribs and pelvis Overall: sacroiliac joint benign 12/08/2018 None Full Exam - General 1995 Musculoskeletal spine, ribs and pelvis Overall: good posture 12/08/2018 None Full Exam - General 1995 Musculoskeletal head and neck Overall: head atraumatic 12/08/2018 None Full Exam - General 1995 Musculoskeletal head and neck Overall: cervical spine [...] None Procedures Procedure Codes Date DESTRUCT PREMALG LES 2-14 CPT-4: 17773 12/08/2018 DESTRUCT PREMALG LESION CPT-4: 72698 12/08/2018 DESTRUCT PREMALG LESION CPT-4: 77918 05/01/2018 DESTRUCT PREMALG LES 2-14 CPT-4: 15545 05/01/2018 IIV4 VACC NO PRSV 3 YRS+ IM CPT-4: 44914 09/05/2017 FLU VAC NO PRSV 4 RENATO 3 YRS+ CPT-4: 90361 09/05/2017 ADMIN INFLUENZA VIRUS VAC CPT-4: G0008 09/05/2017 IIV4 VACC NO PRSV 3 YRS+ IM CPT-4: 31841 09/05/2017 THER/PROPH/DIAG INJ SC/IM CPT-4: 62026 09/05/2017 TRIAMCINOLONE ACET INJ NOS CPT-4: J3301 09/05/2017 DESTRUCT PREMALG LESION CPT-4: 28834 05/21/2017 DESTRUCT PREMALG LES 2-14 CPT-4: 08369 05/21/2017 PNEUMOCOCCAL VACC 13 RENATO IM Formatting Model/CDA Sections, Assigned to/Viola Baker SNANGELES CT: [id number] CPT-4: 47521Obdjaoo 05/02/2016 IMMUNIZATION ADMIN CPT -4: 80841 05/02/2016 Vital Signs Date Vital 12/08/2018 Blood Pressure 1: 128/78 Code : 8480-6 BMI: 30.6 Code : 92564-1 Heart Rate 1 : 76 bpm Height: 5'3" SpO2: 98% Weight: 173 lbs 05/29/2018 Blood Pressure 1: 140/80 Code : 8480-6 Blood Pressure 2: 120/80 Code: 8480-6 BMI: 31.1 Code: 57439-7 Heart Rate 1: 108 bpm Height: 5'3" SpO2: 98% Weight: 175 lbs 13 oz 05/01/2018 Blood Pressure 1: 152/92 Code : 8480-6 BMI: 31.2 Code : 42718-6 Heart Rate 1 : 81 bpm Height: 5'3" SpO2: 97% Weight: 176 lbs 09/05/2017 Blood Pressure 1: 138/68 Code : 8480-6 BMI: 30.8 Code : 00879-0 Heart Rate 1 : 111 bpm Height: 5'3" SpO2: 98% Weight: 174 lbs 05/21/2017 Blood Pressure 1: 132/88 Code : 8480-6 BMI: 30.6 Code : 51739-3 Heart Rate 1 : 88 bpm Height: 5'3" SpO2: 97% Weight: 173 lbs 05/02/2016 Blood Pressure 1: 138/88 Code : 8480-6 BMI: 30.6 Code : 64673-8 Heart Rate 1 : 77 bpm Height: [...] well woman exam (65+ years) Lifestyle satisfactory work/longterm experience 05/02/2016 None well woman exam (65+ [...] data Encounters Encounter Performer Location Codes Date ([id number]) [id number] EST. PATIENT, LEVEL IV Diagnosis: Essential (primary) hypertension[ICD10: I10] Diagnosis: Actinic keratosis[ICD10: L57.0] Diagnosis: Mixed hyperlipidemia[ICD10: E78.2] Bre Dye MD [facility] CPT-4: 08063 12/08/2018 ([id number]) 72726 EST. PATIENT, LEVEL III Diagnosis: Essential (primary) hypertension[ICD10: I10] BRONWYN Gamino MD CPT-4: 52489 05/29/2018 ([id number]) 51908 EST. PATIENT, LEVEL IV Diagnosis: Essential (primary) hypertension[ICD10: I10] Diagnosis: Mixed hyperlipidemia[ICD10: E78.2] Diagnosis: Actinic keratosis[ICD10: L57.0] BRONWYN Gamino MD CPT- 4: 50617 05/01/2018 85525 EST. PATIENT, LEVEL III Diagnosis: Rash and other nonspecific skin eruption[ICD10: R21] Diagnosis: Encounter for immunization[ICD10: Z23] Christina Dye MD, BRONWYN CPT-4: 24404 09/05/2017 [id number]) [id number] EST. PATIENT, LEVEL IV Diagnosis: Mixed hyperlipidemia[ICD10: E78.2] Diagnosis: Vitamin D deficiency, unspecified[ICD10: E55.9] Diagnosis: Actinic keratosis[ICD10: L57.0] BRONWYN Gamino MD CPT- 4: 19108 05/21/2017 ([id number]) OFFICE VISIT, NEW - LEVEL 3 Diagnosis: Vitamin D deficiency, unspecified[ICD10: E55.9] Diagnosis: Encounter for general adult medical examination without abnormal findings[ICD10: Z00.00] Diagnosis: Encounter for immunization[ICD10: Z23] [facility] CPT-4: 80158 05/02/2016 Plan of Care Planned Activity Notes [...] assure normal liver response to medications. 12/08/2018 Patient Education: Patient Medication Summary Completed [...] at home. 05/29/2018 Appointment: Bre Dye WPtel: [address] [place], [place] [id number] (15 min) [facility] 05/29/2018 Patient Education: Patient Medication Summary Completed [...] not improved after thorough healing. 05/01/2018 Appointment: Hardik Bre WPtel: [facility] (15 min) Moderate 05/01/2018 Patient Education: Patient Medication Summary Completed 05/01/2018 Appointment: Hardik Bre WPtel: [phone] [facility] (15 min) Moderate 04/24/2018 Patient Education: Patient Medication Summary Completed 01/20/2018 Care Plan: [facility]9 Pending 01/20/2018 Visit Plan: Allergic Reaction/Hives - discussed diagnosis with patient, need to avoid allergen, and when/if the patient should go to the emergency room. Pt was instructed to take benadryl 25mg q 6 hours x 48 hours, and pepcid 20mg bid x 48 hours, pt also given RX for prednisone taper. 09/05/2017 Appointment: Christina Swanson WPtel: [facility] [place] ([facility] min) Moderate 09/05/2017 Patient Education: Patient [...] right forearm 05/21/2017 Appointment: Bre Dye WPtel: [phone] [facility] (15 min) Moderate 05/21/2017 Patient Education: Patient Medication Summary Completed 05/21/2017 [phone] ([facility] min) Moderate 05/08/2017 Visit Plan: Well [...] renal functioning. 05/02/2016 Appointment: Bre Dye WPtel: [phone] [facility] [place] ([place]) New Patient 05/02/2016 Patient Education: [...]
[2019-02-06] MEDS: TETRACAINE 0.5% OPHTH SOLN 4 ML BTL (SINGLE DOSE ONLY) OU PRN ×4 (08:29→08:58)
[2019-02-06] MEDS: PHENYLEPHRINE 10% OPHTH (NEO-SYN) 5 ML BTL OU SCH ×3 (08:43→08:58)
[2019-02-06] MEDS: CYCLOPENTOLATE 1% (CYCLOGYL) 2 ML DROPS OP SCH ×3 (08:43→08:59)
--- NOTE | 2019-02-06 08:44 | Ophthalmologist Pre-Op Note ---
Pre-Operative Progress Note H&P Reviewed The H&P was reviewed, patient examined and no changes noted. Date H&P Reviewed: Feb 06, 2019 Time H&P Reviewed: 08:44 Pre-Op Dx Cataract, Left Eye GERARD RONQUILLO MD Feb 06, 2019 08:44
[2019-02-06] MEDS ORDERED: MIDAZOLAM 2 MG/2 ML (VERSED) VIAL ONE (09:04)
--- NOTE | 2019-02-06 09:20 | Ophthalmology Operative Report ---
Cataract removal/placement IOL PREOPERATIVE DIAGNOSIS: Cataract Left Eye POSTOPERATIVE DIAGNOSIS: Cataract Left Eye PROCEDURE: Cataract removal and placement of posterior chamber implant, left eye SURGEON: Tyler Ronquillo ANESTHESIA: Topical with sedation COMPLICATIONS: None ESTIMATED BLOOD LOSS: Minimal DESCRIPTION OF PROCEDURE: After proper informed consent was obtained, the patient, a 78 female, was taken to the Operating Room and the left eye was anesthetized with tetracaine. The left eye was then prepped and draped in the usual manner. A wire lid speculum was placed. A paracentesis was made at the left hand position. Preservative free lidocaine was injected into the anterior chamber followed by viscoelastic. A clear corneal incision was made in the temporal position. A capsulorrhexis was preformed and the central nuclear and cortical material were removed. The posterior capsule was polished and an Corey 21.5 [id number] was placed into the capsular bag. The residual viscoelastic was aspirated and balanced saline solution was injected into the anterior chamber. Moxifloxacin was injected into the anterior chamber. The wound was checked and found to be water tight. The patient tolerated the procedure well without complications. TYLER RONQUILLO MD Feb 06, 2019 09:20
[2019-02-06 09:27] VITALS: BP 129/71
[2019-02-06] MEDS ORDERED: acetaZOLAMIDE ER 500 MG CAP (DIAMOX SEQUELS) PO ONE (09:30)
--- NOTE | 2019-02-06 10:36 | Anesthesia-General Post-Op ---
MAC Patient Condition Mental Status/LOC: Same as Preop Cardiovascular: Satisfactory Nausea/Vomiting: Absent Respiratory: Satisfactory Pain: Controlled Complications: Absent Post Op Complications Complications None Follow Up Care/Instructions Patient Instructions None needed. Anesthesiology Discharge Order Discharge Order Patient is doing well, no complaints, stable vital signs, no apparent adverse anesthesia problems. No complications reported per nursing. PADMINI GREWAL CRNA Feb 06, 2019 10:35
== END 2019-02-06 09:27 | disposition home or self-care (01) ==
LOC: SDC 08:12
PROVIDERS: ATTEND Specialist
DX: H25.12 Age-related nuclear cataract, left eye (principal); I10 Essential (primary) hypertension; Z79.899 Other long term (current) drug therapy

== ENCOUNTER 2019-02-17 06:18 | Outpatient (CLI) | payer MEDICARE, OTHER ==
[~2019-02-17] VITALS: Ht 160 cm; Wt 74.8 kg
== END 2019-02-17 12:38 | disposition home or self-care (01) ==
LOC: PREOP 06:18
PROVIDERS: ATTEND Specialist
DX: Z01.818 Encounter for other preprocedural examination (principal)

== ENCOUNTER 2019-02-20 06:20 | Day surgery (SDC) | payer MEDICARE, OTHER ==
[~2019-02-20] VITALS: Ht 160 cm; Wt 74.8 kg
[2019-02-20 06:28] VITALS: BP 116/79
[2019-02-20] MEDS ORDERED: POVIDONE (BETADINE) OPHTH SOLN 5% 30 ML OP ONE (06:30)
[2019-02-20] MEDS ORDERED: LIDOCAINE PF 1% 2 ML AMP IR PRN (06:30)
[2019-02-20] MEDS ORDERED: MOXIFLOXACIN OPHTH SOLN 5 MG/ML 0.3 ML SYRINGE OP ONE (06:30)
[2019-02-20] MEDS ORDERED: TIMOLOL MALEATE 0.5% 5 ML (TIMOPTIC) BTL OU PRN (06:30)
[2019-02-20] MEDS: TETRACAINE 0.5% OPHTH SOLN 4 ML BTL (SINGLE DOSE ONLY) OU PRN ×4 (06:35→06:59)
[2019-02-20] MEDS: PHENYLEPHRINE 10% OPHTH (NEO-SYN) 5 ML BTL OU SCH ×3 (06:45→07:00)
[2019-02-20] MEDS: CYCLOPENTOLATE 1% (CYCLOGYL) 2 ML DROPS OP SCH ×3 (06:45→07:00)
--- OUTSIDE RECORDS SUMMARY | 2019-02-20 06:45 | XMS REPORT | CCD ---
Author Author Bre Dye Organization Bre Dye MD, [facility] Address [address] [place] [address] Phone Care Team Providers Care Help Desk Assistant Name Role Phone PP Unavailable CCM Unavailable Summary Purpose Interface Exchange Insurance Providers Payer name Policy type / Coverage type Covered libertarian ID Effective Begin Date Effective End Date WPS Medicare Part B Medicare Part B [id number] Unknown [employer] [place] Medicare Part B [id number] Unknown Family history Mother Diagnosis Age At Onset Myocardial infarction Unknown Social History Social History Element Codes Description Effective Dates Marital status Unknown Paul 05/02/2016 Number of children Unknown 3 05/02/2016 Employment Unknown Retired 05/02/[address]: 590022 Currently drinks alcohol 05/02/2016 Frequency of drinks SNOMED CT: 104190537 1-4 drinks per week 1 per week 05/02/2016 Allergies, Adverse Reactions, Alerts Substance Reaction Codes Entered Date Inactivated Date Status Lipitor RxNorm: 50852 05/14/2018 No Inactive Date Active VITAMIN E ANALOGUES Unknown 09/06/2017 No Inactive Date Active VITAMIN E DERIVATIVES Unknown 09/06/2017 No Inactive Date Active Past Medical History Illness Codes Condition Status Onset Date Resolved Date Postmenopausal bleeding ICD-9: 627.1 ICD-10: N95.0 Active 02/10/2019 Unknown Actinic keratosis ICD- 9: 702.0 ICD-10: L57.0 [...] Problems Condition Codes Effective Dates Condition Status Postmenopausal bleeding ICD-9: 627.1 ICD-10: N95.0 02/10/2019 Active Actinic keratosis ICD- 9: 702.0 ICD-10: L57.0 [...] betamethasone valerate 0.1 % topical ointment RxNorm: 930486 1 Application TOP BID 12/08/2018 01/06/2019 Inactive losartan 50 mg tablet RxNorm: 210986 1 Tablet(s) PO QPM 201708/21/2019 Active gemfibrozil 600 mg tablet RxNorm: 552361 1 Tablet(s) PO BID 05/28/2018 Inactive doing a short supply to see if she can tolerate med gemfibrozil 600 mg tablet RxNorm: 867705 1 Tablet(s) PO BID 05/13/2018 Inactive doing a short supply to see if she can tolerate med Lipitor 10 mg tablet RxNorm: 901666 1 Tablet(s) PO QHS 201705/13/2018 Inactive losartan 50 mg tablet RxNorm: 739287 1 Tablet(s) PO QPM 201705/28/2018 Inactive prednisone 20 mg tablet RxNorm: 255409 2 Tablet(s) PO daily 04/201709/09/2017 Inactive Kenalog 40 mg/mL suspension for injection RxNorm: 8122282 Milliliter(s) Inj 09/05/2017 09/05/2017 Inactive nystatin 100,000 unit/gram topical cream RxNorm: 960515 1 Gram(s) TOP TID 09/04/2017 09/03/2017 Inactive nystatin 100,000 unit/gram topical cream RxNorm: 494024 1 Gram(s) TOP TID 09/04/2017 09/10/2017 Inactive Diflucan 150 mg tablet RxNorm: 189231 1 Tablet(s) PO daily 01/201709/08/2017 Inactive Diflucan 150 mg tablet RxNorm: 072811 1 Tablet(s) PO daily 01/201709/01/2017 Inactive Lipitor 10 mg tablet RxNorm: 264385 1 Tablet(s) PO QHS 201605/21/2017 Inactive Lipitor 10 mg tablet RxNorm: 325585 1 Tablet(s) PO QHS 201604/30/2018 Inactive Vitamin D3 1,000 unit tablet RxNorm: 005170 4 Tablet(s) PO BID 10/03/2016 05/20/2017 Inactive Vitamin D2 50,000 unit capsule RxNorm: 112747 1 Capsule(s) PO QW 10/03/2016 04/30/2018 Inactive Vitamin D2 50,000 unit capsule RxNorm: 355245 1 Capsule(s) PO QW 05/31/2016 10/02/2016 Inactive Qets-Kkxb-Voqqam Oil oral RxNorm: oral No Start Date Active Vitamin D3 1,000 unit tablet RxNorm: 174909 3 Tablet(s) PO daily No Start Date 10/02/2016 Inactive Vitamin D2 50,000 unit capsule RxNorm: 007254 1 Capsule(s) PO QW No Start Date 05/30/2016 Inactive Medication Administered Medication Codes Instructions Start Date Status Kenalog 40 mg/mL suspension for injection RxNorm: 3987401 Milliliter 09/05/2017 No longer Active Immunizations Vaccine Codes Date Status Influenza CVX: 141 09/05/2017 completed Pneumococcal (Adult) CVX: 133 05/02/2016 completed Assessments Condition Codes Effective Dates Postmenopausal bleeding ICD-10: N95.0 ICD-9: 627.1 02/10/2019 Essential (primary) hypertension ICD-10: I10 ICD-9: 401.1 [...] Visit Reason For Visit Effective Dates Notes vaginal bleeding 02/10/2019 hypertension 12/08/2018 blood pressure followup 05/29/2018 hyperlipidemia [...] 29.6 pg 12/08/2018 Cbc With Differential Ord2 Sierra% 9.1 % 12/08/2018 Cbc With Differential Ord2 [...] 1.99 K/ul 12/08/2018 Cbc With Differential Ord2 [place] ABS# 0.6 K/ul 12/08/2018 Cbc With Differential Ord2 Eos ABS# 0.1 K/ul 12/08/2018 Cbc With Differential Ord2 Baso ABS# 0.0 K/ul 12/08/2018 Comp Metabolic Fzy849 NA 141 mEq/L 12/08/2018 Comp Metabolic Bay611 K 4.4 mEq/L 12/08/2018 Comp Metabolic Zyn131 CL 104 mEq/L 12/08/2018 Comp Metabolic Ziu515 CO2 27.0 mEq/L 12/08/2018 Comp Metabolic Pzt124 ANION GAP 14 12/08/2018 Comp Metabolic Hdl484 GLUCOSE 121 mg/dL 12/08/2018 Comp Metabolic Tow235 Creat 0.9 mg/dL 12/08/2018 Comp Metabolic Joj050 eGFR 66 ml/min/1.73m2 12/08/2018 Comp Metabolic Ssf241 BUN 15 mg/dL 12/08/2018 Comp Metabolic Jto354 B/C Ratio 17.0 Ratio 12/08/2018 Comp Metabolic Xht759 CALCIUM 9.0 mg/dL 12/08/2018 Comp Metabolic Iui395 ALK PHOS 63 U/L 12/08/2018 Comp Metabolic Cdu349 AST(SGOT) 22 U/L 12/08/2018 Comp Metabolic Rcn887 ALT(SGPT) 27 U/L 12/08/2018 Comp Metabolic Jyz352 BILI T 0.7 mg/dL 12/08/2018 Comp Metabolic Hrs235 ALBUMIN 4.1 g/dL 12/08/2018 Comp Metabolic Kwc295 TPRO 6.4 g/dL 12/08/2018 Comp Metabolic Wxc995 GLOB 2.4 g/dL 12/08/2018 Comp Metabolic Hpr923 A/G Ratio 1.7 Ratio 12/08/2018 Comp Metabolic Cae599 Osmo 283 mOsmo 12/08/2018 Tsh Ord6 TSH (3rd IS) 3.12 uIU/mL 05/01/2018 Lipid Ord30 CHOL 212 mg/dL 05/01/2018 Lipid Ord30 HDL 47.0 mg/dl 05/01/2018 Lipid Ord30 TRIG 156 mg/dL 05/01/2018 Lipid Ord30 LDL 134 mg/dL 05/01/2018 Lipid Ord30 C/HDL 4.5 Ratio 05/01/2018 Comp Metabolic Pba512 NA 139 mEq/L 05/01/2018 Comp Metabolic Whg529 K 4.2 mEq/L 05/01/2018 Comp Metabolic Nim070 CL 103 mEq/L 05/01/2018 Comp Metabolic Xdf949 CO2 28.0 mEq/L 05/01/2018 Comp Metabolic Hoe401 ANION GAP 12 05/01/2018 Comp Metabolic Ybo819 GLUCOSE 109 mg/dL 05/01/2018 Comp Metabolic Qil338 Creat 0.9 mg/dL 05/01/2018 Comp Metabolic Gjb172 eGFR 68 ml/min/1.73m2 05/01/2018 Comp Metabolic Aqv427 BUN 13 mg/dL 05/01/2018 Comp Metabolic Vji375 B/C Ratio 15.3 Ratio 05/01/2018 Comp Metabolic Vre208 CALCIUM 9.4 mg/dL 05/01/2018 Comp Metabolic Fmj225 ALK PHOS 49 U/L 05/01/2018 Comp Metabolic Kep166 AST(SGOT) 13 U/L 05/01/2018 Comp Metabolic Kch920 ALT(SGPT) 12 U/L 05/01/2018 Comp Metabolic Pjb127 BILI T 0.6 mg/dL 05/01/2018 Comp Metabolic Xhs180 ALBUMIN 4.4 g/dL 05/01/2018 Comp Metabolic Kum934 TPRO 6.6 g/dL 05/01/2018 Comp Metabolic Any790 GLOB 2.2 g/dL 05/01/2018 Comp Metabolic Vqa286 A/G Ratio 2.0 Ratio 05/01/2018 Comp Metabolic Cyz947 Osmo 278 mOsmo 05/01/2018 Cbc With Differential [...] 29.4 pg 05/01/2018 Cbc With Differential Ord2 Sierra% 8.4 % 05/01/2018 Cbc With Differential Ord2 [...] 2.47 K/ul 05/01/2018 Cbc With Differential Ord2 [place] ABS# 0.6 K/ul 05/01/2018 Cbc With Differential Ord2 Eos ABS# 0.1 K/ul 05/01/2018 Cbc With Differential Ord2 Baso ABS# 0.0 K/ul 05/01/2018 Lipid Ord30 CHOL 217 mg/dL 05/21/2017 Lipid Ord30 HDL 45.0 mg/dl 05/21/2017 Lipid Ord30 TRIG 162 mg/dL 05/21/2017 Lipid Ord30 LDL 140 mg/dL 05/21/2017 Lipid Ord30 C/HDL 4.8 Ratio 05/21/2017 Comp Metabolic Hvh205 NA 140 mEq/L 05/21/2017 Comp Metabolic Ulx525 K 5.1 mEq/L 05/21/2017 Comp Metabolic Mwu713 CL 103 mEq/L 05/21/2017 Comp Metabolic Wki969 CO2 29.0 mEq/L 05/21/2017 Comp Metabolic Xwz109 ANION GAP 13 05/21/2017 Comp Metabolic Ztz142 GLUCOSE 122 mg/dL 05/21/2017 Comp Metabolic Nql505 Creat 0.9 mg/dL 05/21/2017 Comp Metabolic Acs167 eGFR 68 ml/min/1.73m2 05/21/2017 Comp Metabolic Vrv998 BUN 18 mg/dL 05/21/2017 Comp Metabolic Lcm671 B/C Ratio 20.9 Ratio 05/21/2017 Comp Metabolic Yyj987 CALCIUM 9.5 mg/dL 05/21/2017 Comp Metabolic Aki434 ALK PHOS 64 U/L 05/21/2017 Comp Metabolic Zct625 AST(SGOT) 14 U/L 05/21/2017 Comp Metabolic Hwd266 ALT(SGPT) 12 U/L 05/21/2017 Comp Metabolic Ngq438 BILI T 0.6 mg/dL 05/21/2017 Comp Metabolic Rqs629 ALBUMIN 4.3 g/dL 05/21/2017 Comp Metabolic Ptl395 TPRO 6.9 g/dL 05/21/2017 Comp Metabolic Upw523 GLOB 2.6 g/dL 05/21/2017 Comp Metabolic Tph466 A/G Ratio 1.6 Ratio 05/21/2017 Comp Metabolic Kcl062 Osmo 283 mOsmo 05/21/2017 Tsh Ord6 hTSH [...] 29.6 pg 05/21/2017 Cbc With Differential Ord2 Sierra% 8.6 % 05/21/2017 Cbc With Differential Ord2 [...] 2.11 K/ul 05/21/2017 Cbc With Differential Ord2 [place] ABS# 0.6 K/ul 05/21/2017 Cbc With Differential Ord2 Eos ABS# 0.1 K/ul 05/21/2017 Cbc With Differential Ord2 Baso ABS# 0.0 K/ul 05/21/2017 Vitamin D 25 Oh Dix3082 VITAMIN D, 25 HYDROXY 33.89 ng/mL Lipid [...] 29.6 pg 05/02/2016 Cbc With Differential Ord2 Sierra% 8.2 % 05/02/2016 Cbc With Differential Ord2 [...] 2.23 K/ul 05/02/2016 Cbc With Differential Ord2 [place] ABS# 0.6 K/ul 05/02/2016 Cbc With Differential Ord2 Eos ABS# 0.1 K/ul 05/02/2016 Cbc With Differential Ord2 Baso ABS# 0.0 K/ul 05/02/2016 Vitamin D 25 Oh [id number] VITAMIN D, 25 HYDROXY 27.21 ng/mL Comp Metabolic Rjf857 NA 137 mEq/L 05/02/2016 Comp Metabolic Haa812 K 4.5 mEq/L 05/02/2016 Comp Metabolic Ctf024 CL 103 mEq/L 05/02/2016 Comp Metabolic Lwb016 CO2 29.0 mEq/L 05/02/2016 Comp Metabolic Uol539 ANION GAP 10 05/02/2016 Comp Metabolic Dwl039 GLUCOSE 115 mg/dL 05/02/2016 Comp Metabolic Clr298 Creat 0.8 mg/dL 05/02/2016 Comp Metabolic Aff256 eGFR 70 ml/min/1.73m2 05/02/2016 Comp Metabolic Mrj300 BUN 17 mg/dL 05/02/2016 Comp Metabolic Rkr389 B/C Ratio 20.2 Ratio 05/02/2016 Comp Metabolic Yhz346 CALCIUM 9.3 mg/dL 05/02/2016 Comp Metabolic Urm280 ALK PHOS 62 U/L 05/02/2016 Comp Metabolic Xlw485 AST(SGOT) 11 U/L 05/02/2016 Comp Metabolic Yft974 ALT(SGPT) 10 U/L 05/02/2016 Comp Metabolic Jwh658 BILI T 0.6 mg/dL 05/02/2016 Comp Metabolic Fbd258 ALBUMIN 4.3 g/dL 05/02/2016 Comp Metabolic Njt138 TPRO 6.9 g/dL 05/02/2016 Comp Metabolic Ofb988 GLOB 2.6 g/dL 05/02/2016 Comp Metabolic Uau672 A/G Ratio 1.6 Ratio 05/02/2016 Comp Metabolic Szr177 Osmo 276 mOsmo 05/02/2016 Tsh Ord6 hTSH II 1.87 uIU/mL 05/02/2016 Lipid Ord30 CHOL 224 mg/dL 05/02/2016 Lipid Ord30 HDL 43.0 mg/dl 05/02/2016 Lipid Ord30 TRIG 148 mg/dL 05/02/2016 Lipid Ord30 LDL 151 mg/dL 05/02/2016 Lipid Ord30 C/HDL 5.2 Ratio 05/02/2016 Review of Systems System Result Effective Dates Constitutional No recent illness 2018 Constitutional No chills 02/10/2019 Constitutional No fatigue 02/10/2019 Constitutional No fever 02/10/2019 Constitutional No insomnia 02/10/2019 Constitutional No malaise 02/10/2019 Eyes No blindness 02/10/2019 Eyes No vision change 02/10/2019 Ears/Nose/Throat/Neck No dental pain 11/2019 Ears/Nose/Throat/Neck No dizziness 2018 Ears/Nose/Throat/Neck No dysphagia 2018 Ears/Nose/Throat/Neck No headache 2018 Ears/Nose/Throat/Neck No hearing loss 11/2019 Ears/Nose/Throat/Neck No nasal allergies 02/10/2019 Ears/Nose/Throat/Neck No sore throat 11/2019 Ears/Nose/Throat/Neck No postnasal drip 02/10/2019 Ears/Nose/Throat/Neck No sinus congestion 02/10/2019 Cardiovascular No chest pain/pressure 11/2019 Cardiovascular No dyspnea 02/10/2019 Cardiovascular No edema 02/10/2019 Cardiovascular No exercise intolerance Cardiovascular No fatigue 02/10/2019 Cardiovascular No near-syncope/dizziness 02/10/2019 Respiratory No chest tightness 2018 Respiratory No cough 02/10/2019 Respiratory No dyspnea 02/10/2019 Respiratory No pedal edema 02/10/2019 Gastrointestinal No abdominal pain 2018 Gastrointestinal constipation 02/10/2019 Gastrointestinal No diarrhea 02/10/2019 Gastrointestinal No gastroesophageal reflux 02/10/2019 Gastrointestinal No nausea 02/10/2019 Gastrointestinal No vomiting 02/10/2019 Genitourinary/Nephrology No dysuria 02/10 Genitourinary/Nephrology No nocturia 11/2019 Genitourinary/Nephrology No urinary incontinence 02/10/2019 Musculoskeletal No stiffness 02/10/2019 Musculoskeletal No swelling 02/10/2019 Musculoskeletal No muscle weakness 2018 Musculoskeletal No myalgias 02/10/2019 Dermatologic No rash 02/10/2019 Neurologic No dizziness 02/10/2019 Neurologic No headache 02/10/2019 Neurologic No neck pain 02/10/2019 Neurologic No syncope 02/10/2019 Psychiatric No anxiety 02/10/2019 Psychiatric No depression 02/10/2019 Genitourinary/Nephrology vaginal discharge 02/10/2019 Constitutional No recent illness 2018 Constitutional No [...] 1994 Constitutional general appearance Development: well developed 02/10/2019 None Full Exam - General 1994 Constitutional general appearance Development: appears stated age 0302/10/2019 None Full Exam - General 1994 Constitutional general appearance Hygiene/Attention to Grooming: good hygiene 02/10/2019 None Full Exam - General 1994 Eyes conjunctiva /eyelids Overall: conjunctiva clear 02/10/2019 None Full Exam - General 1994 Eyes conjunctiva /eyelids Overall: cornea clear 02/10/2019 None Full Exam - General 1994 Eyes conjunctiva /eyelids Overall: eyelids normal 02/10/2019 None Full Exam - General 1994 Eyes pupils and irises Overall: pupils equal, round, reactive to light and accomodation 02/10/2019 None Full Exam - General 1994 Ears/Nose/Throat otoscopic exam Overall: external auditory canals clear 02/10/2019 None Full Exam - General 1994 Ears/Nose/Throat otoscopic exam Overall: tympanic membranes clear 02/10/2019 None Full Exam - General 1994 Ears/Nose/Throat lips/teeth/gingiva Overall: benign lips 02/10/2019 None Full Exam - General 1994 Ears/Nose/Throat lips/teeth/gingiva Overall: normal dentition 02/10/2019 None Full Exam - General 1994 Ears/Nose/Throat oral cavity/pharynx/larynx Overall: oral mucosa clear 02/10/2019 None Full Exam - General 1994 Ears/Nose/Throat oral cavity/pharynx/larynx Overall: oropharyngeal mucosa clear 02/10/2019 None Full Exam - General 1994 Ears/Nose/Throat oral cavity/pharynx/larynx Overall: hypopharynx benign 02/10/2019 None Full Exam - General 1994 Ears/Nose/Throat oral cavity/pharynx/larynx Overall: no masses 02/10/2019 None Full Exam - General 1994 Respiratory auscultation Overall: breath sounds clear bilaterally 02/10/2019 None Full Exam - General 1994 Respiratory respiratory effort/rhythm Overall: no retractions 02/10/2019 None Full Exam - General 1994 Respiratory respiratory effort/rhythm Overall: normal rate 02/10/2019 None Full Exam - General 1994 Cardiovascular extremities Overall: no clubbing 02/10/2019 None Full Exam - General 1994 Cardiovascular auscultation of heart Overall: regular rate 02/10/2019 None Full Exam - General 1994 Cardiovascular auscultation of heart Overall: normal heart sounds 02/10/2019 None Full Exam - General 1994 Abdomen abdominal exam Overall: no tenderness 02/10/2019 None Full Exam - General 1994 Abdomen abdominal exam Overall: normal bowel sounds 02/10/2019 None Full Exam - General 1994 Lymphatic neck nodes Overall: anterior cervical chain benign 02/10/2019 None Full Exam - General 1994 Lymphatic neck nodes Overall: posterior cervical chain benign 02/10/2019 None Full Exam - General 1994 Musculoskeletal spine, ribs and pelvis Overall: spine benign 02/10/2019 None Full Exam - General 1994 Musculoskeletal spine, ribs and pelvis Overall: sacroiliac joint benign 02/10/2019 None Full Exam - General 1994 Musculoskeletal spine, ribs and pelvis Overall: good posture 02/10/2019 None Full Exam - General 1994 Musculoskeletal head and neck Overall: head atraumatic 02/10/2019 None Full Exam - General 1994 Musculoskeletal head and neck Overall: cervical spine benign 02/10/2019 None Full Exam - General 1994 Neurologic deep tendon reflexes Overall: deep tendon reflexes intact 02/10/2019 None Full Exam - General 1994 Neurologic cranial nerves Overall: crainial nerves 2 - 12 grossly intact 02/10/2019 None Full Exam - General 1994 Psychiatric orientation/consciousness Overall: oriented to person, place and time 02/10/2019 None Full Exam - General 1994 Psychiatric mood and affect Overall: normal mood and affect 02/10/2019 None Full Exam - General 1994 Genitourinary cervix Inspection: no lesions 02/10/2019 None Full Exam - General 1994 Genitourinary cervix Cervical discharge: blood-tinged 02/10/2019 None Full Exam - General 1994 Genitourinary labia and vagina Overall: no lesions 02/10/2019 None Full Exam - General 1994 Constitutional [...] 1994 Eyes conjunctiva /eyelids Overall: cornea clear 12/08/2018 [...] Procedure Codes Date DESTRUCT PREMALG LESION CPT-4: 37374 12/08/2018 DESTRUCT PREMALG LES 2-14 CPT-4: 70345 12/08/2018 DESTRUCT PREMALG LESION CPT-4: 32566 05/01/2018 DESTRUCT PREMALG LES 2-14 CPT-4: 76673 05/01/2018 IIV4 VACC NO PRSV 3 YRS+ IM CPT-4: 84002 09/05/2017 FLU VAC NO PRSV 4 RENATO 3 YRS+ CPT-4: 90911 09/05/2017 ADMIN INFLUENZA VIRUS VAC CPT-4: G0008 09/05/2017 IIV4 VACC NO PRSV 3 YRS+ IM CPT-4: 42812 09/05/2017 THER/PROPH/DIAG INJ SC/IM CPT-4: 86642 09/05/2017 TRIAMCINOLONE ACET INJ NOS CPT-4: J3301 09/05/2017 DESTRUCT PREMALG LESION CPT-4: 68917 05/21/2017 DESTRUCT PREMALG LES 2-14 CPT-4: 99987 05/21/2017 PNEUMOCOCCAL VACC 13 RENATO IM Formatting Model/CDA Sections, Assigned to/Viola Baker CT: [id number] CPT-4: 41676Nllddbl 05/02/2016 IMMUNIZATION ADMIN CPT -4: 21502 05/02/2016 Vital Signs Date Vital 02/10/2019 Blood Pressure 1: 142/74 Code : 8480-6 BMI: 30.6 Code : 49614-4 Heart Rate 1 : 90 bpm Height: 5'3" SpO2: 98% Weight: 173 lbs 12/08/2018 Blood Pressure 1: 128/78 Code : 8480-6 BMI: 30.6 Code : 80295-3 Heart Rate 1 : 76 bpm Height: 5'3" SpO2: 98% Weight: 173 lbs 05/29/2018 Blood Pressure 1: 140/80 Code : 8480-6 Blood Pressure 2: 120/80 Code: 8480-6 BMI: 31.1 Code: 97809-1 Heart Rate 1: 108 bpm Height: 5'3" SpO2: 98% Weight: 175 lbs 13 oz 05/01/2018 Blood Pressure 1: 152/92 Code : 8480-6 BMI: 31.2 Code : 88344-0 Heart Rate 1 : 81 bpm Height: 5'3" SpO2: 97% Weight: 176 lbs 09/05/2017 Blood Pressure 1: 138/68 Code : 8480-6 BMI: 30.8 Code : 53432-2 Heart Rate 1 : 111 bpm Height: 5'3" SpO2: 98% Weight: 174 lbs 05/21/2017 Blood Pressure 1: 132/88 Code : 8480-6 BMI: 30.6 Code : 20065-3 Heart Rate 1 : 88 bpm Height: 5'3" SpO2: 97% Weight: 173 lbs 05/02/2016 Blood Pressure 1: 138/88 Code : 8480-6 BMI: 30.6 Code : 39889-4 Heart Rate 1 : 77 bpm Height: 5'3" SpO2: 97% Weight: 172 lbs 8 oz Functional Status No Functional Status data History of Present Illness Symptom Name Status Result Effective Date Notes Quality intermittent 02/10/2019 None Onset and Resolution sudden in onset 02/10/2019 None Onset of Symptom 3 days ago 02/10/2019 None Severity mild 2018 None Limitation on Activities does not limit activities 02/10/2019 None Frequency of Episodes increasing 02/10/2019 None Triggers no known associated factors 02/10/2019 None Pertinent Findings Denies fever 02/10/2019 None Pertinent Findings Denies pelvic pain 02/10/2019 None Quality primary hypertension 12/08/2018 None Onset and [...] well woman exam (65+ 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 PATIENT, LEVEL IV Diagnosis: Postmenopausal bleeding[ICD10: N95.0] Shala Dye MD, [facility] CPT-4: 76442 02/10/2019 ([id number]) 16806 EST. PATIENT, LEVEL IV Diagnosis: Essential (primary) hypertension[ICD10: I10] Diagnosis: Actinic keratosis[ICD10: L57.0] Diagnosis: Mixed hyperlipidemia[ICD10: E78.2] Bre Dye MD, [facility] CPT-4: 87684 12/08/2018 ([id number]) 35306 EST. PATIENT, LEVEL III Diagnosis: Essential (primary) hypertension[ICD10: I10] Bre Dye MD, [facility] CPT-4: 13486 05/29/2018 ([id number]) 96345 EST. PATIENT, LEVEL IV Diagnosis: Essential (primary) hypertension[ICD10: I10] Diagnosis: Mixed hyperlipidemia[ICD10: E78.2] Diagnosis: Actinic keratosis[ICD10: L57.0] Bre Dye MD, [facility] CPT- 4: 30053 05/01/2018 80884 EST. PATIENT, LEVEL III Diagnosis: Rash and other nonspecific skin eruption[ICD10: R21] Diagnosis: Encounter for immunization[ICD10: Z23] [facility] CPT-4: 25559 09/05/2017 ([id number]) 60890 EST. PATIENT, LEVEL IV Diagnosis: Mixed hyperlipidemia[ICD10: E78.2] Diagnosis: Vitamin D deficiency, unspecified[ICD10: E55.9] Diagnosis: Actinic keratosis[ICD10: L57.0] Bre Dye MD, [facility] CPT- 4: 09149 05/21/2017 ([id number]) OFFICE VISIT, NEW - LEVEL 3 Diagnosis: Vitamin D deficiency, unspecified[ICD10: E55.9] Diagnosis: Encounter for general adult medical examination without abnormal findings[ICD10: Z00.00] Diagnosis: Encounter for immunization[ICD10: Z23] [facility] CPT-4: 50811 05/02/2016 Plan of Care Planned Activity Notes Codes Status Date Visit Plan: Post menopausal bleeding- pap completed today in the office- patient needs pelvic ultrasound -called for referral to Dr Figueroa and he can see her today at 3:00pm. Patient notified of appt. 02/10/2019 Visit Plan: Post menopausal bleeding- pap completed today in the office- patient needs pelvic ultrasound -called for referral to Dr Figueroa and he can see her today at 3:00pm. Patient notified of appt. 02/10/2019 Visit Plan: Post menopausal bleeding- pap completed today in the office- patient needs pelvic ultrasound -called for referral to Dr Figueroa and he can see her today at 3:00pm. Patient notified of appt. 02/10/2019 Patient Education: Patient Medication Summary Completed 02/10/2019 Care Plan: PAP 2 Pending 02/10/2019 Visit Plan: Hypertension - well controlled - [...] medications. 12/08/2018 [facility] [phone] [id number] (15 min) Moderate 12/08/2018 Patient Education: [...] home. 05/29/2018 Appointment[phone] [id number] (15 min) Moderate 05/29/2018 Patient Education: [...] thorough healing. 05/01/2018 Appointment: Bre Dye WPtel: [facility] (15 min) Moderate 05/01/2018 Patient Education: Patient Medication Summary Completed 05/01/2018 Appointment: Bre Dye WPtel: [facility] (15 min) Moderate 04/24/2018 Patient Education: Patient Medication Summary Completed 01/20/2018 Care Plan: SCREENINGMAMMOGRAPHYDIGITAL LOINC : 67620-7 Pending 01/20/2018 Visit Plan: Allergic Reaction/Hives - discussed diagnosis with patient, need to avoid allergen, and when/if the patient should go to the emergency room. Pt was instructed to take benadryl 25mg q 6 hours x 48 hours, and pepcid 20mg bid x 48 hours, pt also given RX for prednisone taper. 09/05/2017 Appointment: Christina Swanson WPtel: [facility] (15 min) Moderate 09/05/2017 Patient Education: Patient [...] of nose and right forearm 05/21/2017 Appointment: Felisha Dyey WPtel: [phone] [facility] (15 min) Moderate 05/21/2017 Patient Education: Patient Medication Summary Completed 05/21/2017 Appointment: Bre Dye WPtel: [phone] [facility] (15 min) Moderate 05/08/2017 Visit Plan: Well [...] renal functioning. 05/02/2016 Appointment: [phone] [id number] [place] New Patient 05/02/2016 Patient [...] if not improved after thorough healing. . Post menopausal bleeding- pap completed today in the office- patient needs pelvic ultrasound -called for referral to Dr Figueroa and he can see her today at 3:00pm. Patient notified of appt. . Post menopausal bleeding- pap completed today in the office- patient needs pelvic ultrasound -called for referral to Dr Figueroa and he can see her today at 3:00pm. Patient notified of appt. . Post menopausal bleeding- pap completed today in the office- patient needs pelvic ultrasound -called for referral to Dr Figueroa and he can see her today at 3:00pm. Patient notified of appt. . Hypertension - well controlled - continue [...]
--- OUTSIDE RECORDS SUMMARY | 2019-02-20 06:46 | XMS REPORT | CCD ---
Author Author Bre Dye Organization Bre Dye MD, [facility] Address [address] [place] [address] Phone Care Team Providers Care Logistics/Shipper Name Role Phone PP Unavailable CCM Unavailable Summary Purpose Interface Exchange Insurance Providers Payer name Policy type / Coverage type Covered republican ID Effective Begin Date Effective End Date WPS Medicare Part B Medicare Part B [id number] Unknown Bankers [place] Medicare Part B [id number] Unknown Family history Mother Diagnosis Age At Onset Myocardial infarction Unknown Social History Social History Element Codes Description Effective Dates Marital status Unknown Paul 05/02/2016 Number of children Unknown 3 05/02/2016 Employment Unknown Retired 05/02/[address]: 910522 Currently drinks alcohol 05/02/2016 Frequency of drinks SNOMED CT: 974252764 1-4 drinks per week 1 per week 05/02/2016 Allergies, Adverse Reactions, Alerts Substance Reaction Codes Entered Date Inactivated Date Status Lipitor RxNorm: 96050 05/14/2018 No Inactive Date Active VITAMIN E [...] betamethasone valerate 0.1 % topical ointment RxNorm: 432992 1 Application TOP BID 12/08/2018 01/06/2019 Inactive losartan 50 mg tablet RxNorm: 564179 1 Tablet(s) PO QPM 201708/21/2019 Active gemfibrozil 600 mg tablet RxNorm: 609142 1 Tablet(s) PO BID 05/28/2018 Inactive doing a short supply to see if she can tolerate med gemfibrozil 600 mg tablet RxNorm: 794250 1 Tablet(s) PO BID 05/13/2018 Inactive doing a short supply to see if she can tolerate med Lipitor 10 mg tablet RxNorm: 781433 1 Tablet(s) PO QHS 201705/13/2018 Inactive losartan 50 mg tablet RxNorm: 668178 1 Tablet(s) PO QPM 201705/28/2018 Inactive prednisone 20 mg tablet RxNorm: 389450 2 Tablet(s) PO daily 04/201709/09/2017 Inactive Kenalog 40 mg/mL suspension for injection RxNorm: 0449747 Milliliter(s) Inj 09/05/2017 09/05/2017 Inactive nystatin 100,000 unit/gram topical cream RxNorm: 367777 1 Gram(s) TOP TID 09/04/2017 09/03/2017 Inactive nystatin 100,000 unit/gram topical cream RxNorm: 926035 1 Gram(s) TOP TID 09/04/2017 09/10/2017 Inactive Diflucan 150 mg tablet RxNorm: 105378 1 Tablet(s) PO daily 01/201709/08/2017 Inactive Diflucan 150 mg tablet RxNorm: 131065 1 Tablet(s) PO daily 01/201709/01/2017 Inactive Lipitor 10 mg tablet RxNorm: 383704 1 Tablet(s) PO QHS 201605/21/2017 Inactive Lipitor 10 mg tablet RxNorm: 245544 1 Tablet(s) PO QHS 201604/30/2018 Inactive Vitamin D3 1,000 unit tablet RxNorm: 276547 4 Tablet(s) PO BID 10/03/2016 05/20/2017 Inactive Vitamin D2 50,000 unit capsule RxNorm: 482181 1 Capsule(s) PO QW 10/03/2016 04/30/2018 Inactive Vitamin D2 50,000 unit capsule RxNorm: 589388 1 Capsule(s) PO QW 05/31/2016 10/02/2016 Inactive Avsu-Zysg-Dhwnem Oil oral RxNorm: oral No Start Date Active Vitamin D3 1,000 unit tablet RxNorm: 600249 3 Tablet(s) PO daily No Start Date 10/02/2016 Inactive Vitamin D2 50,000 unit capsule RxNorm: 575933 1 Capsule(s) PO QW No Start Date 05/30/2016 Inactive Medication Administered Medication Codes Instructions Start Date Status Kenalog 40 mg/mL suspension for injection RxNorm: 8379874 Milliliter 09/05/2017 No longer Active Immunizations Vaccine [...] 29.6 pg 12/08/2018 Cbc With Differential Ord2 Cascade% 9.1 % 12/08/2018 Cbc With Differential Ord2 [...] 1.99 K/ul 12/08/2018 Cbc With Differential Ord2 Cascade ABS# 0.6 K/ul 12/08/2018 Cbc With Differential Ord2 Eos ABS# 0.1 K/ul 12/08/2018 Cbc With Differential Ord2 Baso ABS# 0.0 K/ul 12/08/2018 Comp Metabolic Nsh160 NA 141 mEq/L 12/08/2018 Comp Metabolic Yxc613 K 4.4 mEq/L 12/08/2018 Comp Metabolic Ned001 CL 104 mEq/L 12/08/2018 Comp Metabolic Mxe201 CO2 27.0 mEq/L 12/08/2018 Comp Metabolic Wzo976 ANION GAP 14 12/08/2018 Comp Metabolic Frw065 GLUCOSE 121 mg/dL 12/08/2018 Comp Metabolic Ggp781 Creat 0.9 mg/dL 12/08/2018 Comp Metabolic Idh486 eGFR 66 ml/min/1.73m2 12/08/2018 Comp Metabolic Neh635 BUN 15 mg/dL 12/08/2018 Comp Metabolic Exb004 B/C Ratio 17.0 Ratio 12/08/2018 Comp Metabolic Slf737 CALCIUM 9.0 mg/dL 12/08/2018 Comp Metabolic Usu904 ALK PHOS 63 U/L 12/08/2018 Comp Metabolic Lvy361 AST(SGOT) 22 U/L 12/08/2018 Comp Metabolic Dnn473 ALT(SGPT) 27 U/L 12/08/2018 Comp Metabolic Uvj098 BILI T 0.7 mg/dL 12/08/2018 Comp Metabolic Wdw999 ALBUMIN 4.1 g/dL 12/08/2018 Comp Metabolic Zyf568 TPRO 6.4 g/dL 12/08/2018 Comp Metabolic Bog819 GLOB 2.4 g/dL 12/08/2018 Comp Metabolic Kks229 A/G Ratio 1.7 Ratio 12/08/2018 Comp Metabolic Mpl373 Osmo 283 mOsmo 12/08/2018 Tsh Ord6 TSH (3rd IS) 3.12 uIU/mL 05/01/2018 Lipid Ord30 CHOL 212 mg/dL 05/01/2018 Lipid Ord30 HDL 47.0 mg/dl 05/01/2018 Lipid Ord30 TRIG 156 mg/dL 05/01/2018 Lipid Ord30 LDL 134 mg/dL 05/01/2018 Lipid Ord30 C/HDL 4.5 Ratio 05/01/2018 Comp Metabolic Xkk211 NA 139 mEq/L 05/01/2018 Comp Metabolic Lus763 K 4.2 mEq/L 05/01/2018 Comp Metabolic Yzc293 CL 103 mEq/L 05/01/2018 Comp Metabolic Juc987 CO2 28.0 mEq/L 05/01/2018 Comp Metabolic Syb622 ANION GAP 12 05/01/2018 Comp Metabolic Slo500 GLUCOSE 109 mg/dL 05/01/2018 Comp Metabolic Hsl984 Creat 0.9 mg/dL 05/01/2018 Comp Metabolic Yxz427 eGFR 68 ml/min/1.73m2 05/01/2018 Comp Metabolic Xos377 BUN 13 mg/dL 05/01/2018 Comp Metabolic Clj291 B/C Ratio 15.3 Ratio 05/01/2018 Comp Metabolic Aab396 CALCIUM 9.4 mg/dL 05/01/2018 Comp Metabolic Oce413 ALK PHOS 49 U/L 05/01/2018 Comp Metabolic Gca191 AST(SGOT) 13 U/L 05/01/2018 Comp Metabolic Vkp517 ALT(SGPT) 12 U/L 05/01/2018 Comp Metabolic Ard268 BILI T 0.6 mg/dL 05/01/2018 Comp Metabolic Ihz859 ALBUMIN 4.4 g/dL 05/01/2018 Comp Metabolic Uac590 TPRO 6.6 g/dL 05/01/2018 Comp Metabolic Gkp819 GLOB 2.2 g/dL 05/01/2018 Comp Metabolic Ktk528 A/G Ratio 2.0 Ratio 05/01/2018 Comp Metabolic Hbn927 Osmo 278 mOsmo 05/01/2018 Cbc With Differential [...] 29.4 pg 05/01/2018 Cbc With Differential Ord2 Cascade% 8.4 % 05/01/2018 Cbc With Differential Ord2 [...] 2.47 K/ul 05/01/2018 Cbc With Differential Ord2 Cascade ABS# 0.6 K/ul 05/01/2018 Cbc With Differential Ord2 Eos ABS# 0.1 K/ul 05/01/2018 Cbc With Differential Ord2 Baso ABS# 0.0 K/ul 05/01/2018 Lipid Ord30 CHOL 217 mg/dL 05/21/2017 Lipid Ord30 HDL 45.0 mg/dl 05/21/2017 Lipid Ord30 TRIG 162 mg/dL 05/21/2017 Lipid Ord30 LDL 140 mg/dL 05/21/2017 Lipid Ord30 C/HDL 4.8 Ratio 05/21/2017 Comp Metabolic Xxt055 NA 140 mEq/L 05/21/2017 Comp Metabolic Xjw726 K 5.1 mEq/L 05/21/2017 Comp Metabolic Tma472 CL 103 mEq/L 05/21/2017 Comp Metabolic Jsc017 CO2 29.0 mEq/L 05/21/2017 Comp Metabolic Vgo279 ANION GAP 13 05/21/2017 Comp Metabolic Okf298 GLUCOSE 122 mg/dL 05/21/2017 Comp Metabolic Quz665 Creat 0.9 mg/dL 05/21/2017 Comp Metabolic Evt372 eGFR 68 ml/min/1.73m2 05/21/2017 Comp Metabolic Qfy352 BUN 18 mg/dL 05/21/2017 Comp Metabolic Jma973 B/C Ratio 20.9 Ratio 05/21/2017 Comp Metabolic Rmm039 CALCIUM 9.5 mg/dL 05/21/2017 Comp Metabolic Ngl146 ALK PHOS 64 U/L 05/21/2017 Comp Metabolic Nke592 AST(SGOT) 14 U/L 05/21/2017 Comp Metabolic Tbm508 ALT(SGPT) 12 U/L 05/21/2017 Comp Metabolic Kna598 BILI T 0.6 mg/dL 05/21/2017 Comp Metabolic Euu217 ALBUMIN 4.3 g/dL 05/21/2017 Comp Metabolic Djh238 TPRO 6.9 g/dL 05/21/2017 Comp Metabolic Vgv792 GLOB 2.6 g/dL 05/21/2017 Comp Metabolic Hlp346 A/G Ratio 1.6 Ratio 05/21/2017 Comp Metabolic Tiv719 Osmo 283 mOsmo 05/21/2017 Tsh Ord6 hTSH [...] 29.6 pg 05/21/2017 Cbc With Differential Ord2 Cascade% 8.6 % 05/21/2017 Cbc With Differential Ord2 [...] 2.11 K/ul 05/21/2017 Cbc With Differential Ord2 Cascade ABS# 0.6 K/ul 05/21/2017 Cbc With Differential Ord2 Eos ABS# 0.1 K/ul 05/21/2017 Cbc With Differential Ord2 Baso ABS# 0.0 K/ul 05/21/2017 Vitamin D 25 Oh Fnk9659 VITAMIN D, 25 HYDROXY 33.89 ng/mL Lipid [...] 29.6 pg 05/02/2016 Cbc With Differential Ord2 Cascade% 8.2 % 05/02/2016 Cbc With Differential Ord2 [...] 2.23 K/ul 05/02/2016 Cbc With Differential Ord2 Cascade ABS# 0.6 K/ul 05/02/2016 Cbc With Differential Ord2 Eos ABS# 0.1 K/ul 05/02/2016 Cbc With Differential Ord2 Baso ABS# 0.0 K/ul 05/02/2016 Vitamin D 25 Oh Jdy9015 VITAMIN D, 25 HYDROXY 27.21 ng/mL Comp Metabolic Cls636 NA 137 mEq/L 05/02/2016 Comp Metabolic Fbw643 K 4.5 mEq/L 05/02/2016 Comp Metabolic Khk272 CL 103 mEq/L 05/02/2016 Comp Metabolic Rjp958 CO2 29.0 mEq/L 05/02/2016 Comp Metabolic Beg792 ANION GAP 10 05/02/2016 Comp Metabolic Nnb549 GLUCOSE 115 mg/dL 05/02/2016 Comp Metabolic Wug202 Creat 0.8 mg/dL 05/02/2016 Comp Metabolic Qhk454 eGFR 70 ml/min/1.73m2 05/02/2016 Comp Metabolic Wub780 BUN 17 mg/dL 05/02/2016 Comp Metabolic Xhp797 B/C Ratio 20.2 Ratio 05/02/2016 Comp Metabolic Kgw489 CALCIUM 9.3 mg/dL 05/02/2016 Comp Metabolic Sad188 ALK PHOS 62 U/L 05/02/2016 Comp Metabolic Vhl865 AST(SGOT) 11 U/L 05/02/2016 Comp Metabolic Qxj040 ALT(SGPT) 10 U/L 05/02/2016 Comp Metabolic Zmb291 BILI T 0.6 mg/dL 05/02/2016 Comp Metabolic Boj033 ALBUMIN 4.3 g/dL 05/02/2016 Comp Metabolic Yjy218 TPRO 6.9 g/dL 05/02/2016 Comp Metabolic Chc802 GLOB 2.6 g/dL 05/02/2016 Comp Metabolic Qnf588 A/G Ratio 1.6 Ratio 05/02/2016 Comp Metabolic Gku526 Osmo 276 mOsmo 05/02/2016 Tsh Ord6 hTSH [...] Procedure Codes Date DESTRUCT PREMALG LESION CPT-4: 59702 12/08/2018 DESTRUCT PREMALG LES 2-14 CPT-4: 00368 12/08/2018 DESTRUCT PREMALG LESION CPT-4: 67852 05/01/2018 DESTRUCT PREMALG LES 2-14 CPT-4: 37458 05/01/2018 IIV4 VACC NO PRSV 3 YRS+ IM CPT-4: 15470 09/05/2017 FLU VAC NO PRSV 4 RENATO 3 YRS+ CPT-4: 59341 09/05/2017 ADMIN INFLUENZA VIRUS VAC CPT-4: G0008 09/05/2017 IIV4 VACC NO PRSV 3 YRS+ IM CPT-4: 24999 09/05/2017 THER/PROPH/DIAG INJ SC/IM CPT-4: 54513 09/05/2017 TRIAMCINOLONE ACET INJ NOS CPT-4: J3301 09/05/2017 DESTRUCT PREMALG LESION CPT-4: 02695 05/21/2017 DESTRUCT PREMALG LES 2-14 CPT-4: 00418 05/21/2017 PNEUMOCOCCAL VACC 13 RENATO IM Formatting Model/CDA Sections, Assigned to/Viola Baker CT: [id number] CPT-4: 44332Ksupwrm 05/02/2016 IMMUNIZATION ADMIN CPT -4: 95907 05/02/2016 Vital Signs Date Vital 02/10/2019 Blood Pressure 1: 142/74 Code : 8480-6 BMI: 30.6 Code : 75887-4 Heart Rate 1 : 90 bpm Height: 5'3" SpO2: 98% Weight: 173 lbs 12/08/2018 Blood Pressure 1: 128/78 Code : 8480-6 BMI: 30.6 Code : 65328-1 Heart Rate 1 : 76 bpm Height: 5'3" SpO2: 98% Weight: 173 lbs 05/29/2018 Blood Pressure 1: 140/80 Code : 8480-6 Blood Pressure 2: 120/80 Code: 8480-6 BMI: 31.1 Code: 02065-4 Heart Rate 1: 108 bpm Height: 5'3" SpO2: 98% Weight: 175 lbs 13 oz 05/01/2018 Blood Pressure 1: 152/92 Code : 8480-6 BMI: 31.2 Code : 91355-9 Heart Rate 1 : 81 bpm Height: 5'3" SpO2: 97% Weight: 176 lbs 09/05/2017 Blood Pressure 1: 138/68 Code : 8480-6 BMI: 30.8 Code : 08961-1 Heart Rate 1 : 111 bpm Height: 5'3" SpO2: 98% Weight: 174 lbs 05/21/2017 Blood Pressure 1: 132/88 Code : 8480-6 BMI: 30.6 Code : 76798-1 Heart Rate 1 : 88 bpm Height: 5'3" SpO2: 97% Weight: 173 lbs 05/02/2016 Blood Pressure 1: 138/88 Code : 8480-6 BMI: 30.6 Code : 64917-9 Heart Rate 1 : 77 bpm Height: [...] well woman exam (65+ years) Lifestyle satisfactory work/group home experience 05/02/2016 None well woman exam (65+ [...] Encounters Encounter Performer Location Codes Date ( 41670 EST. PATIENT, LEVEL IV Diagnosis: Postmenopausal bleeding[ICD10: N95.0] Shala Dye MD, [facility] CPT-4: 38552 02/10/2019 ([id number]) 19364 EST. PATIENT, LEVEL IV Diagnosis: Essential (primary) hypertension[ICD10: I10] Diagnosis: Actinic keratosis[ICD10: L57.0] Diagnosis: Mixed hyperlipidemia[ICD10: E78.2] Bre Dye MD, [facility] CPT-4: 79718 12/08/2018 ([id number]) 44988 EST. PATIENT, LEVEL III Diagnosis: Essential (primary) hypertension[ICD10: I10] Bre Dye MD, [facility] CPT-4: 08678 05/29/2018 ([id number]) 44797 EST. PATIENT, LEVEL IV Diagnosis: Essential (primary) hypertension[ICD10: I10] Diagnosis: Mixed hyperlipidemia[ICD10: E78.2] Diagnosis: Actinic keratosis[ICD10: L57.0] Bre Dye MD, [facility] CPT- 4: 73488 05/01/2018 [id number] EST. PATIENT, LEVEL III Diagnosis: Rash and other nonspecific skin eruption[ICD10: R21] Diagnosis: Encounter for immunization[ICD10: Z23] [facility] CPT-4: 33649 09/05/2017 ([id number]) 33315 EST. PATIENT, LEVEL IV Diagnosis: Mixed hyperlipidemia[ICD10: E78.2] Diagnosis: Vitamin D deficiency, unspecified[ICD10: E55.9] Diagnosis: Actinic keratosis[ICD10: L57.0] Bre Dye MD, [facility] CPT- 4: 41759 05/21/2017 ([id number]) OFFICE VISIT, NEW - LEVEL 3 Diagnosis: Vitamin D deficiency, unspecified[ICD10: E55.9] Diagnosis: Encounter for general adult medical examination without abnormal findings[ICD10: Z00.00] Diagnosis: Encounter for immunization[ICD10: Z23] [facility] CPT-4: 25286 05/02/2016 Plan of Care Planned Activity Notes [...] medications. 12/08/2018 [facility] [address] [facility] (15 min) Moderate 12/08/2018 Patient Education: Patient [...] home. 05/29/2018 App[facility]ment: [facility] [address] [facility] (15 min) Moderate 05/29/2018 Patient Education: Patient [...] thorough healing. 05/01/2018 Appointment: Bre Dye WPtel: [facility] (15 min) Moderate 05/01/2018 Patient Education: Patient Medication Summary Completed 05/01/2018 Appointment: Bre Dye WPtel: [facility] (15 min) Moderate 04/24/2018 Patient Education: Patient Medication Summary Completed 01/20/2018 Care Plan: SCREENINGMAMMOGRAPHYDIGITAL LOINC : 13477-8 Pending 01/20/2018 Visit Plan: Allergic Reaction/Hives - discussed diagnosis with patient, need to avoid allergen, and when/if the patient should go to the emergency room. Pt was instructed to take benadryl 25mg q 6 hours x 48 hours, and pepcid 20mg bid x 48 hours, pt also given RX for prednisone taper. 09/05/2017 Appointment: Christina Swanson WPtel: [facility] (15 min) Moderate 09/05/2017 Patient Education: Patient [...] forearm 05/21/2017 Appointment: Felisha Dyey WPtel: [address] [facility] (15 min) Moderate 05/21/2017 Patient Education: Patient Medication Summary Completed 05/21/2017 Appointment: Bre Dye WPtel: [address] [facility] (15 min) Moderate 05/08/2017 Visit Plan: Well [...] functioning. 05/02/2016 Appointment: [facility] [facility] [place] New Patient 05/02/2016 Patient Education: [...] pelvic ultrasound -called for referral to Dr Figueora and he can see her today at [...]
--- OUTSIDE RECORDS SUMMARY | 2019-02-20 06:47 | XMS REPORT | CCD ---
Author Author Bre Dye Organization Bre Dye MD, [facility] Address [address] [place] [address] Phone Care Team Providers Care Quality Control Specialist Name Role Phone PP Unavailable CCM Unavailable Summary Purpose Interface Exchange Insurance Providers Payer name Policy type / Coverage type Covered republican ID Effective Begin Date Effective End Date WPS Medicare Part B Medicare Part B [id number] Unknown Bankers [place] Medicare Part B [id number] Unknown Family history Mother Diagnosis Age At Onset Myocardial infarction Unknown Social History Social History Element Codes Description Effective Dates Marital status Unknown Paul 05/02/2016 Number of children Unknown 3 05/02/2016 Employment Unknown Retired 05/02/[address]: 668552 Currently drinks alcohol 05/02/2016 Frequency of drinks SNOMED CT: 083780786 1-4 drinks per week 1 per week 05/02/2016 Allergies, Adverse Reactions, Alerts Substance Reaction Codes Entered Date Inactivated Date Status Lipitor RxNorm: 73548 05/14/2018 No Inactive Date Active VITAMIN E [...] betamethasone valerate 0.1 % topical ointment RxNorm: 988577 1 Application TOP BID 12/08/2018 01/06/2019 Inactive losartan 50 mg tablet RxNorm: 015738 1 Tablet(s) PO QPM 201708/21/2019 Active gemfibrozil 600 mg tablet RxNorm: 648366 1 Tablet(s) PO BID 05/28/2018 Inactive doing a short supply to see if she can tolerate med gemfibrozil 600 mg tablet RxNorm: 629936 1 Tablet(s) PO BID 05/13/2018 Inactive doing a short supply to see if she can tolerate med Lipitor 10 mg tablet RxNorm: 657557 1 Tablet(s) PO QHS 201705/13/2018 Inactive losartan 50 mg tablet RxNorm: 302099 1 Tablet(s) PO QPM 201705/28/2018 Inactive prednisone 20 mg tablet RxNorm: 384481 2 Tablet(s) PO daily 04/201709/09/2017 Inactive Kenalog 40 mg/mL suspension for injection RxNorm: 4253475 Milliliter(s) Inj 09/05/2017 09/05/2017 Inactive nystatin 100,000 unit/gram topical cream RxNorm: 794758 1 Gram(s) TOP TID 09/04/2017 09/03/2017 Inactive nystatin 100,000 unit/gram topical cream RxNorm: 006826 1 Gram(s) TOP TID 09/04/2017 09/10/2017 Inactive Diflucan 150 mg tablet RxNorm: 264070 1 Tablet(s) PO daily 01/201709/08/2017 Inactive Diflucan 150 mg tablet RxNorm: 265155 1 Tablet(s) PO daily 01/201709/01/2017 Inactive Lipitor 10 mg tablet RxNorm: 494464 1 Tablet(s) PO QHS 201605/21/2017 Inactive Lipitor 10 mg tablet RxNorm: 955525 1 Tablet(s) PO QHS 201604/30/2018 Inactive Vitamin D3 1,000 unit tablet RxNorm: 907168 4 Tablet(s) PO BID 10/03/2016 05/20/2017 Inactive Vitamin D2 50,000 unit capsule RxNorm: 149060 1 Capsule(s) PO QW 10/03/2016 04/30/2018 Inactive Vitamin D2 50,000 unit capsule RxNorm: 313360 1 Capsule(s) PO QW 05/31/2016 10/02/2016 Inactive Wida-Iamf-Trtjpw Oil oral RxNorm: oral No Start Date Active Vitamin D3 1,000 unit tablet RxNorm: 158997 3 Tablet(s) PO daily No Start Date 10/02/2016 Inactive Vitamin D2 50,000 unit capsule RxNorm: 230137 1 Capsule(s) PO QW No Start Date 05/30/2016 Inactive Medication Administered Medication Codes Instructions Start Date Status Kenalog 40 mg/mL suspension for injection RxNorm: 8849031 Milliliter 09/05/2017 No longer Active Immunizations Vaccine [...] 29.6 pg 12/08/2018 Cbc With Differential Ord2 Ness% 9.1 % 12/08/2018 Cbc With Differential Ord2 [...] 1.99 K/ul 12/08/2018 Cbc With Differential Ord2 Ness ABS# 0.6 K/ul 12/08/2018 Cbc With Differential Ord2 Eos ABS# 0.1 K/ul 12/08/2018 Cbc With Differential Ord2 Baso ABS# 0.0 K/ul 12/08/2018 Comp Metabolic Hbj300 NA 141 mEq/L 12/08/2018 Comp Metabolic Txv724 K 4.4 mEq/L 12/08/2018 Comp Metabolic Clb333 CL 104 mEq/L 12/08/2018 Comp Metabolic Fam465 CO2 27.0 mEq/L 12/08/2018 Comp Metabolic Nga922 ANION GAP 14 12/08/2018 Comp Metabolic Rra146 GLUCOSE 121 mg/dL 12/08/2018 Comp Metabolic Uai256 Creat 0.9 mg/dL 12/08/2018 Comp Metabolic Fdm172 eGFR 66 ml/min/1.73m2 12/08/2018 Comp Metabolic Elm159 BUN 15 mg/dL 12/08/2018 Comp Metabolic Axk096 B/C Ratio 17.0 Ratio 12/08/2018 Comp Metabolic Wdd254 CALCIUM 9.0 mg/dL 12/08/2018 Comp Metabolic Ldd000 ALK PHOS 63 U/L 12/08/2018 Comp Metabolic Zgj664 AST(SGOT) 22 U/L 12/08/2018 Comp Metabolic Akb784 ALT(SGPT) 27 U/L 12/08/2018 Comp Metabolic Jde505 BILI T 0.7 mg/dL 12/08/2018 Comp Metabolic Zmw497 ALBUMIN 4.1 g/dL 12/08/2018 Comp Metabolic Elx999 TPRO 6.4 g/dL 12/08/2018 Comp Metabolic Gzh874 GLOB 2.4 g/dL 12/08/2018 Comp Metabolic Jdq132 A/G Ratio 1.7 Ratio 12/08/2018 Comp Metabolic Udk753 Osmo 283 mOsmo 12/08/2018 Tsh Ord6 TSH (3rd IS) 3.12 uIU/mL 05/01/2018 Lipid Ord30 CHOL 212 mg/dL 05/01/2018 Lipid Ord30 HDL 47.0 mg/dl 05/01/2018 Lipid Ord30 TRIG 156 mg/dL 05/01/2018 Lipid Ord30 LDL 134 mg/dL 05/01/2018 Lipid Ord30 C/HDL 4.5 Ratio 05/01/2018 Comp Metabolic Pxy229 NA 139 mEq/L 05/01/2018 Comp Metabolic Eqt949 K 4.2 mEq/L 05/01/2018 Comp Metabolic Etr600 CL 103 mEq/L 05/01/2018 Comp Metabolic Zcf221 CO2 28.0 mEq/L 05/01/2018 Comp Metabolic Mxi602 ANION GAP 12 05/01/2018 Comp Metabolic Lxt225 GLUCOSE 109 mg/dL 05/01/2018 Comp Metabolic Utm537 Creat 0.9 mg/dL 05/01/2018 Comp Metabolic Hcb200 eGFR 68 ml/min/1.73m2 05/01/2018 Comp Metabolic Hcq689 BUN 13 mg/dL 05/01/2018 Comp Metabolic Ctu331 B/C Ratio 15.3 Ratio 05/01/2018 Comp Metabolic Yed475 CALCIUM 9.4 mg/dL 05/01/2018 Comp Metabolic Ozg489 ALK PHOS 49 U/L 05/01/2018 Comp Metabolic Aro563 AST(SGOT) 13 U/L 05/01/2018 Comp Metabolic Wfk218 ALT(SGPT) 12 U/L 05/01/2018 Comp Metabolic Yzj223 BILI T 0.6 mg/dL 05/01/2018 Comp Metabolic Meq022 ALBUMIN 4.4 g/dL 05/01/2018 Comp Metabolic Cvi088 TPRO 6.6 g/dL 05/01/2018 Comp Metabolic Exa898 GLOB 2.2 g/dL 05/01/2018 Comp Metabolic Wrf541 A/G Ratio 2.0 Ratio 05/01/2018 Comp Metabolic Gpo407 Osmo 278 mOsmo 05/01/2018 Cbc With Differential [...] 29.4 pg 05/01/2018 Cbc With Differential Ord2 Ness% 8.4 % 05/01/2018 Cbc With Differential Ord2 [...] 2.47 K/ul 05/01/2018 Cbc With Differential Ord2 Ness ABS# 0.6 K/ul 05/01/2018 Cbc With Differential Ord2 Eos ABS# 0.1 K/ul 05/01/2018 Cbc With Differential Ord2 Baso ABS# 0.0 K/ul 05/01/2018 Lipid Ord30 CHOL 217 mg/dL 05/21/2017 Lipid Ord30 HDL 45.0 mg/dl 05/21/2017 Lipid Ord30 TRIG 162 mg/dL 05/21/2017 Lipid Ord30 LDL 140 mg/dL 05/21/2017 Lipid Ord30 C/HDL 4.8 Ratio 05/21/2017 Comp Metabolic Hrr072 NA 140 mEq/L 05/21/2017 Comp Metabolic Vbd494 K 5.1 mEq/L 05/21/2017 Comp Metabolic Sdm250 CL 103 mEq/L 05/21/2017 Comp Metabolic Oha295 CO2 29.0 mEq/L 05/21/2017 Comp Metabolic Dev036 ANION GAP 13 05/21/2017 Comp Metabolic Usa774 GLUCOSE 122 mg/dL 05/21/2017 Comp Metabolic Reu227 Creat 0.9 mg/dL 05/21/2017 Comp Metabolic Hec336 eGFR 68 ml/min/1.73m2 05/21/2017 Comp Metabolic Efi148 BUN 18 mg/dL 05/21/2017 Comp Metabolic Kxk786 B/C Ratio 20.9 Ratio 05/21/2017 Comp Metabolic Mab395 CALCIUM 9.5 mg/dL 05/21/2017 Comp Metabolic Jiw808 ALK PHOS 64 U/L 05/21/2017 Comp Metabolic Xkl370 AST(SGOT) 14 U/L 05/21/2017 Comp Metabolic Gyx789 ALT(SGPT) 12 U/L 05/21/2017 Comp Metabolic Jwv756 BILI T 0.6 mg/dL 05/21/2017 Comp Metabolic Thf525 ALBUMIN 4.3 g/dL 05/21/2017 Comp Metabolic Hvk753 TPRO 6.9 g/dL 05/21/2017 Comp Metabolic Rqt619 GLOB 2.6 g/dL 05/21/2017 Comp Metabolic Fbt829 A/G Ratio 1.6 Ratio 05/21/2017 Comp Metabolic Ill425 Osmo 283 mOsmo 05/21/2017 Tsh Ord6 hTSH [...] 29.6 pg 05/21/2017 Cbc With Differential Ord2 Ness% 8.6 % 05/21/2017 Cbc With Differential Ord2 [...] 2.11 K/ul 05/21/2017 Cbc With Differential Ord2 Ness ABS# 0.6 K/ul 05/21/2017 Cbc With Differential Ord2 Eos ABS# 0.1 K/ul 05/21/2017 Cbc With Differential Ord2 Baso ABS# 0.0 K/ul 05/21/2017 Vitamin D 25 Oh Mvv9769 VITAMIN D, 25 HYDROXY 33.89 ng/mL Lipid [...] 29.6 pg 05/02/2016 Cbc With Differential Ord2 Ness% 8.2 % 05/02/2016 Cbc With Differential Ord2 [...] 2.23 K/ul 05/02/2016 Cbc With Differential Ord2 Ness ABS# 0.6 K/ul 05/02/2016 Cbc With Differential Ord2 Eos ABS# 0.1 K/ul 05/02/2016 Cbc With Differential Ord2 Baso ABS# 0.0 K/ul 05/02/2016 Vitamin D 25 Oh Psy9856 VITAMIN D, 25 HYDROXY 27.21 ng/mL Comp Metabolic Lbb606 NA 137 mEq/L 05/02/2016 Comp Metabolic Nfh206 K 4.5 mEq/L 05/02/2016 Comp Metabolic Qip540 CL 103 mEq/L 05/02/2016 Comp Metabolic Jqr285 CO2 29.0 mEq/L 05/02/2016 Comp Metabolic Qps009 ANION GAP 10 05/02/2016 Comp Metabolic Pjm164 GLUCOSE 115 mg/dL 05/02/2016 Comp Metabolic Rno075 Creat 0.8 mg/dL 05/02/2016 Comp Metabolic Nfe754 eGFR 70 ml/min/1.73m2 05/02/2016 Comp Metabolic Gfu149 BUN 17 mg/dL 05/02/2016 Comp Metabolic Bpm206 B/C Ratio 20.2 Ratio 05/02/2016 Comp Metabolic Piq267 CALCIUM 9.3 mg/dL 05/02/2016 Comp Metabolic Gpj235 ALK PHOS 62 U/L 05/02/2016 Comp Metabolic Mfv624 AST(SGOT) 11 U/L 05/02/2016 Comp Metabolic Zoi054 ALT(SGPT) 10 U/L 05/02/2016 Comp Metabolic Rxp235 BILI T 0.6 mg/dL 05/02/2016 Comp Metabolic Cpg609 ALBUMIN 4.3 g/dL 05/02/2016 Comp Metabolic Wnj279 TPRO 6.9 g/dL 05/02/2016 Comp Metabolic Aot988 GLOB 2.6 g/dL 05/02/2016 Comp Metabolic Nvl810 A/G Ratio 1.6 Ratio 05/02/2016 Comp Metabolic Lxo067 Osmo 276 mOsmo 05/02/2016 Tsh Ord6 hTSH [...] Procedure Codes Date DESTRUCT PREMALG LESION CPT-4: 00962 12/08/2018 DESTRUCT PREMALG LES 2-14 CPT-4: 51749 12/08/2018 DESTRUCT PREMALG LESION CPT-4: 36318 05/01/2018 DESTRUCT PREMALG LES 2-14 CPT-4: 25913 05/01/2018 IIV4 VACC NO PRSV 3 YRS+ IM CPT-4: 03450 09/05/2017 FLU VAC NO PRSV 4 RENATO 3 YRS+ CPT-4: 71638 09/05/2017 ADMIN INFLUENZA VIRUS VAC CPT-4: G0008 09/05/2017 IIV4 VACC NO PRSV 3 YRS+ IM CPT-4: 04244 09/05/2017 THER/PROPH/DIAG INJ SC/IM CPT-4: 36359 09/05/2017 TRIAMCINOLONE ACET INJ NOS CPT-4: J3301 09/05/2017 DESTRUCT PREMALG LESION CPT-4: 89466 05/21/2017 DESTRUCT PREMALG LES 2-14 CPT-4: 19215 05/21/2017 PNEUMOCOCCAL VACC 13 RENATO IM Formatting Model/CDA Sections, Assigned to/Viola Baker CT: [id number] CPT-4: 61146Xrgkgjo 05/02/2016 IMMUNIZATION ADMIN CPT -4: 19692 05/02/2016 Vital Signs Date Vital 02/10/2019 Blood Pressure 1: 142/74 Code : 8480-6 BMI: 30.6 Code : 89756-1 Heart Rate 1 : 90 bpm Height: 5'3" SpO2: 98% Weight: 173 lbs 12/08/2018 Blood Pressure 1: 128/78 Code : 8480-6 BMI: 30.6 Code : 90936-1 Heart Rate 1 : 76 bpm Height: 5'3" SpO2: 98% Weight: 173 lbs 05/29/2018 Blood Pressure 1: 140/80 Code : 8480-6 Blood Pressure 2: 120/80 Code: 8480-6 BMI: 31.1 Code: 92730-7 Heart Rate 1: 108 bpm Height: 5'3" SpO2: 98% Weight: 175 lbs 13 oz 05/01/2018 Blood Pressure 1: 152/92 Code : 8480-6 BMI: 31.2 Code : 44421-5 Heart Rate 1 : 81 bpm Height: 5'3" SpO2: 97% Weight: 176 lbs 09/05/2017 Blood Pressure 1: 138/68 Code : 8480-6 BMI: 30.8 Code : 65790-7 Heart Rate 1 : 111 bpm Height: 5'3" SpO2: 98% Weight: 174 lbs 05/21/2017 Blood Pressure 1: 132/88 Code : 8480-6 BMI: 30.6 Code : 96807-1 Heart Rate 1 : 88 bpm Height: 5'3" SpO2: 97% Weight: 173 lbs 05/02/2016 Blood Pressure 1: 138/88 Code : 8480-6 BMI: 30.6 Code : 55877-3 Heart Rate 1 : 77 bpm Height: [...] well woman exam (65+ years) Lifestyle satisfactory work/senior living experience 05/02/2016 None well woman exam (65+ [...] Encounters Encounter Performer Location Codes Date ( 34703 EST. PATIENT, LEVEL IV Diagnosis: Postmenopausal bleeding[ICD10: N95.0] Shala Dye MD, [facility] CPT-4: 10145 02/10/2019 ([id number]) 30951 EST. PATIENT, LEVEL IV Diagnosis: Essential (primary) hypertension[ICD10: I10] Diagnosis: Actinic keratosis[ICD10: L57.0] Diagnosis: Mixed hyperlipidemia[ICD10: E78.2] Bre Dye MD, [facility] CPT-4: 19040 12/08/2018 ([id number]) 88933 EST. PATIENT, LEVEL III Diagnosis: Essential (primary) hypertension[ICD10: I10] Bre Dye MD, [facility] CPT-4: 13901 05/29/2018 ([id number]) 54546 EST. PATIENT, LEVEL IV Diagnosis: Essential (primary) hypertension[ICD10: I10] Diagnosis: Mixed hyperlipidemia[ICD10: E78.2] Diagnosis: Actinic keratosis[ICD10: L57.0] Bre Dye MD, [facility] CPT- 4: 99892 05/01/2018 23505 EST. PATIENT, LEVEL III Diagnosis: Rash and other nonspecific skin eruption[ICD10: R21] Diagnosis: Encounter for immunization[ICD10: Z23] [facility] CPT-4: 19977 09/05/2017 ([id number]) 68285 EST. PATIENT, LEVEL IV Diagnosis: Mixed hyperlipidemia[ICD10: E78.2] Diagnosis: Vitamin D deficiency, unspecified[ICD10: E55.9] Diagnosis: Actinic keratosis[ICD10: L57.0] Bre Dye MD, [facility] CPT- 4: 62948 05/21/2017 ([id number]) OFFICE VISIT, NEW - LEVEL 3 Diagnosis: Vitamin D deficiency, unspecified[ICD10: E55.9] Diagnosis: Encounter for general adult medical examination without abnormal findings[ICD10: Z00.00] Diagnosis: Encounter for immunization[ICD10: Z23] [facility] CPT-4: 82628 05/02/2016 Plan of Care Planned Activity Notes [...] to medications. 12/08/2018 [phone] ([facility] min) Moderate 12/08/2018 Patient Education: Patient [...] at home. 05/29/2018 [facility]ment[phone] (15 min) Moderate 05/29/2018 Patient Education: Patient [...] thorough healing. 05/01/2018 [facility]ment[phone] (15 min) Moderate 05/01/2018 Patient Education: Patient Medication Summary Completed 05/01/2018 Appointment: Bre Dye WPtel: [phone] [facility] (15 min) Moderate 04/24/2018 Patient Education: Patient Medication Summary Completed 01/20/2018 [facility] Plan[facility] 33713-5 Pending 01/20/2018 Visit Plan: Allergic Reaction/Hives - discussed diagnosis with patient, need to avoid allergen, and when/if the patient should go to the emergency room. Pt was instructed to take benadryl 25mg q 6 hours x 48 hours, and pepcid 20mg bid x 48 hours, pt also given RX for prednisone taper. 09/05/2017 App[facility]ment: [phone] (15 min) Moderate 09/05/2017 Patient Education: Patient [...] right forearm 05/21/2017 [facility]ment[phone] (15 min) Moderate 05/21/2017 Patient Education: Patient Medication Summary Completed 05/21/2017 Appointment: Bre Dye WPtel: [phone] [facility] (15 min) Moderate 05/08/2017 Visit Plan: Well [...] panel, CBC, and renal functioning. 05/02/2016 Appointment: HardikBre WPtel: [phone] [facility] [place] ([place]) New Patient 05/02/2016 Patient Education: [...]
--- OUTSIDE RECORDS SUMMARY | 2019-02-20 06:49 | XMS REPORT | CCD ---
Author Author Bre Dye Organization Bre Dye MD, [facility] Address [address] [place] [address] Phone Care Team Providers Care Psychiatric Assistant Name Role Phone PP Unavailable CCM Unavailable Summary Purpose Interface Exchange Insurance Providers Payer name Policy type / Coverage type Covered libertarian ID Effective Begin Date Effective End Date WPS Medicare Part B Medicare Part B [id number] Unknown Bankers [place] Medicare Part B [id number] Unknown Family history Mother Diagnosis Age At Onset Myocardial infarction Unknown Social History Social History Element Codes Description Effective Dates Marital status Unknown Paul 05/02/2016 Number of children Unknown 3 05/02/2016 Employment Unknown Retired 05/02/[address]: 147976 Currently drinks alcohol 05/02/2016 Frequency of drinks SNOMED CT: 005261277 1-4 drinks per week 1 per week 05/02/2016 Allergies, Adverse Reactions, Alerts Substance Reaction Codes Entered Date Inactivated Date Status Lipitor RxNorm: 98853 05/14/2018 No Inactive Date Active VITAMIN E [...] betamethasone valerate 0.1 % topical ointment RxNorm: 039495 1 Application TOP BID 12/08/2018 01/06/2019 Inactive losartan 50 mg tablet RxNorm: 655603 1 Tablet(s) PO QPM 201708/21/2019 Active gemfibrozil 600 mg tablet RxNorm: 501182 1 Tablet(s) PO BID 05/28/2018 Inactive doing a short supply to see if she can tolerate med gemfibrozil 600 mg tablet RxNorm: 827690 1 Tablet(s) PO BID 05/13/2018 Inactive doing a short supply to see if she can tolerate med Lipitor 10 mg tablet RxNorm: 435713 1 Tablet(s) PO QHS 201705/13/2018 Inactive losartan 50 mg tablet RxNorm: 846416 1 Tablet(s) PO QPM 201705/28/2018 Inactive prednisone 20 mg tablet RxNorm: 541203 2 Tablet(s) PO daily 04/201709/09/2017 Inactive Kenalog 40 mg/mL suspension for injection RxNorm: 3682129 Milliliter(s) Inj 09/05/2017 09/05/2017 Inactive nystatin 100,000 unit/gram topical cream RxNorm: 129636 1 Gram(s) TOP TID 09/04/2017 09/03/2017 Inactive nystatin 100,000 unit/gram topical cream RxNorm: 821502 1 Gram(s) TOP TID 09/04/2017 09/10/2017 Inactive Diflucan 150 mg tablet RxNorm: 330694 1 Tablet(s) PO daily 01/201709/08/2017 Inactive Diflucan 150 mg tablet RxNorm: 926705 1 Tablet(s) PO daily 01/201709/01/2017 Inactive Lipitor 10 mg tablet RxNorm: 977173 1 Tablet(s) PO QHS 201605/21/2017 Inactive Lipitor 10 mg tablet RxNorm: 505850 1 Tablet(s) PO QHS 201604/30/2018 Inactive Vitamin D3 1,000 unit tablet RxNorm: 618494 4 Tablet(s) PO BID 10/03/2016 05/20/2017 Inactive Vitamin D2 50,000 unit capsule RxNorm: 625791 1 Capsule(s) PO QW 10/03/2016 04/30/2018 Inactive Vitamin D2 50,000 unit capsule RxNorm: 531033 1 Capsule(s) PO QW 05/31/2016 10/02/2016 Inactive Piys-Qeow-Ljlrvv Oil oral RxNorm: oral No Start Date Active Vitamin D3 1,000 unit tablet RxNorm: 732226 3 Tablet(s) PO daily No Start Date 10/02/2016 Inactive Vitamin D2 50,000 unit capsule RxNorm: 650770 1 Capsule(s) PO QW No Start Date 05/30/2016 Inactive Medication Administered Medication Codes Instructions Start Date Status Kenalog 40 mg/mL suspension for injection RxNorm: 9363389 Milliliter 09/05/2017 No longer Active Immunizations Vaccine [...] 29.6 pg 12/08/2018 Cbc With Differential Ord2 [place]% 9.1 % 12/08/2018 Cbc With Differential Ord2 [...] 1.99 K/ul 12/08/2018 Cbc With Differential Ord2 [place] ABS# 0.6 K/ul 12/08/2018 Cbc With Differential Ord2 Eos ABS# 0.1 K/ul 12/08/2018 Cbc With Differential Ord2 Baso ABS# 0.0 K/ul 12/08/2018 Comp Metabolic Ogh716 NA 141 mEq/L 12/08/2018 Comp Metabolic Ajt752 K 4.4 mEq/L 12/08/2018 Comp Metabolic Eac277 CL 104 mEq/L 12/08/2018 Comp Metabolic Fsy459 CO2 27.0 mEq/L 12/08/2018 Comp Metabolic Gww327 ANION GAP 14 12/08/2018 Comp Metabolic Dms095 GLUCOSE 121 mg/dL 12/08/2018 Comp Metabolic Bjp579 Creat 0.9 mg/dL 12/08/2018 Comp Metabolic Goy625 eGFR 66 ml/min/1.73m2 12/08/2018 Comp Metabolic Oxs906 BUN 15 mg/dL 12/08/2018 Comp Metabolic Slx135 B/C Ratio 17.0 Ratio 12/08/2018 Comp Metabolic Plj798 CALCIUM 9.0 mg/dL 12/08/2018 Comp Metabolic Rtk205 ALK PHOS 63 U/L 12/08/2018 Comp Metabolic Dba828 AST(SGOT) 22 U/L 12/08/2018 Comp Metabolic Hri629 ALT(SGPT) 27 U/L 12/08/2018 Comp Metabolic Dei278 BILI T 0.7 mg/dL 12/08/2018 Comp Metabolic Upr250 ALBUMIN 4.1 g/dL 12/08/2018 Comp Metabolic Sdc255 TPRO 6.4 g/dL 12/08/2018 Comp Metabolic Bks873 GLOB 2.4 g/dL 12/08/2018 Comp Metabolic Kwt397 A/G Ratio 1.7 Ratio 12/08/2018 Comp Metabolic Psd920 Osmo 283 mOsmo 12/08/2018 Tsh Ord6 TSH (3rd IS) 3.12 uIU/mL 05/01/2018 Lipid Ord30 CHOL 212 mg/dL 05/01/2018 Lipid Ord30 HDL 47.0 mg/dl 05/01/2018 Lipid Ord30 TRIG 156 mg/dL 05/01/2018 Lipid Ord30 LDL 134 mg/dL 05/01/2018 Lipid Ord30 C/HDL 4.5 Ratio 05/01/2018 Comp Metabolic Awr850 NA 139 mEq/L 05/01/2018 Comp Metabolic Mom887 K 4.2 mEq/L 05/01/2018 Comp Metabolic Qhx766 CL 103 mEq/L 05/01/2018 Comp Metabolic Rke706 CO2 28.0 mEq/L 05/01/2018 Comp Metabolic Oel941 ANION GAP 12 05/01/2018 Comp Metabolic Jzl228 GLUCOSE 109 mg/dL 05/01/2018 Comp Metabolic Cbe213 Creat 0.9 mg/dL 05/01/2018 Comp Metabolic Xyh432 eGFR 68 ml/min/1.73m2 05/01/2018 Comp Metabolic Hqt168 BUN 13 mg/dL 05/01/2018 Comp Metabolic Sul653 B/C Ratio 15.3 Ratio 05/01/2018 Comp Metabolic Jvo121 CALCIUM 9.4 mg/dL 05/01/2018 Comp Metabolic Nsb253 ALK PHOS 49 U/L 05/01/2018 Comp Metabolic Qqu521 AST(SGOT) 13 U/L 05/01/2018 Comp Metabolic Eac063 ALT(SGPT) 12 U/L 05/01/2018 Comp Metabolic Swd289 BILI T 0.6 mg/dL 05/01/2018 Comp Metabolic Rrn493 ALBUMIN 4.4 g/dL 05/01/2018 Comp Metabolic Qvu055 TPRO 6.6 g/dL 05/01/2018 Comp Metabolic Cyn816 GLOB 2.2 g/dL 05/01/2018 Comp Metabolic Ria083 A/G Ratio 2.0 Ratio 05/01/2018 Comp Metabolic Ekn438 Osmo 278 mOsmo 05/01/2018 Cbc With Differential [...] 29.4 pg 05/01/2018 Cbc With Differential Ord2 [place]% 8.4 % 05/01/2018 Cbc With Differential Ord2 [...] 2.47 K/ul 05/01/2018 Cbc With Differential Ord2 [place] ABS# 0.6 K/ul 05/01/2018 Cbc With Differential Ord2 Eos ABS# 0.1 K/ul 05/01/2018 Cbc With Differential Ord2 Baso ABS# 0.0 K/ul 05/01/2018 Lipid Ord30 CHOL 217 mg/dL 05/21/2017 Lipid Ord30 HDL 45.0 mg/dl 05/21/2017 Lipid Ord30 TRIG 162 mg/dL 05/21/2017 Lipid Ord30 LDL 140 mg/dL 05/21/2017 Lipid Ord30 C/HDL 4.8 Ratio 05/21/2017 Comp Metabolic Ekm249 NA 140 mEq/L 05/21/2017 Comp Metabolic Qit583 K 5.1 mEq/L 05/21/2017 Comp Metabolic Uen597 CL 103 mEq/L 05/21/2017 Comp Metabolic Fjh198 CO2 29.0 mEq/L 05/21/2017 Comp Metabolic Gmx409 ANION GAP 13 05/21/2017 Comp Metabolic Wel307 GLUCOSE 122 mg/dL 05/21/2017 Comp Metabolic Zdi199 Creat 0.9 mg/dL 05/21/2017 Comp Metabolic Xyh683 eGFR 68 ml/min/1.73m2 05/21/2017 Comp Metabolic Lcr394 BUN 18 mg/dL 05/21/2017 Comp Metabolic Qzo133 B/C Ratio 20.9 Ratio 05/21/2017 Comp Metabolic Uxp159 CALCIUM 9.5 mg/dL 05/21/2017 Comp Metabolic Jdr983 ALK PHOS 64 U/L 05/21/2017 Comp Metabolic Kve712 AST(SGOT) 14 U/L 05/21/2017 Comp Metabolic Suy600 ALT(SGPT) 12 U/L 05/21/2017 Comp Metabolic Qzk671 BILI T 0.6 mg/dL 05/21/2017 Comp Metabolic Jnt807 ALBUMIN 4.3 g/dL 05/21/2017 Comp Metabolic Hre038 TPRO 6.9 g/dL 05/21/2017 Comp Metabolic Kyu164 GLOB 2.6 g/dL 05/21/2017 Comp Metabolic Gsd392 A/G Ratio 1.6 Ratio 05/21/2017 Comp Metabolic Xzr305 Osmo 283 mOsmo 05/21/2017 Tsh Ord6 hTSH [...] 29.6 pg 05/21/2017 Cbc With Differential Ord2 [place]% 8.6 % 05/21/2017 Cbc With Differential Ord2 [...] 2.11 K/ul 05/21/2017 Cbc With Differential Ord2 [place] ABS# 0.6 K/ul 05/21/2017 Cbc With Differential Ord2 Eos ABS# 0.1 K/ul 05/21/2017 Cbc With Differential Ord2 Baso ABS# 0.0 K/ul 05/21/2017 Vitamin D 25 Oh Qbb3513 VITAMIN D, 25 HYDROXY 33.89 ng/mL Lipid [...] 29.6 pg 05/02/2016 Cbc With Differential Ord2 [place]% 8.2 % 05/02/2016 Cbc With Differential Ord2 [...] 2.23 K/ul 05/02/2016 Cbc With Differential Ord2 [place] ABS# 0.6 K/ul 05/02/2016 Cbc With Differential Ord2 Eos ABS# 0.1 K/ul 05/02/2016 Cbc With Differential Ord2 Baso ABS# 0.0 K/ul 05/02/2016 Vitamin D 25 Oh Vht8978 VITAMIN D, 25 HYDROXY 27.21 ng/mL Comp Metabolic Syk027 NA 137 mEq/L 05/02/2016 Comp Metabolic Pxp325 K 4.5 mEq/L 05/02/2016 Comp Metabolic Dyu579 CL 103 mEq/L 05/02/2016 Comp Metabolic Gbx896 CO2 29.0 mEq/L 05/02/2016 Comp Metabolic Bkt577 ANION GAP 10 05/02/2016 Comp Metabolic Qwy808 GLUCOSE 115 mg/dL 05/02/2016 Comp Metabolic Ant303 Creat 0.8 mg/dL 05/02/2016 Comp Metabolic Lnz102 eGFR 70 ml/min/1.73m2 05/02/2016 Comp Metabolic Mud394 BUN 17 mg/dL 05/02/2016 Comp Metabolic Hgr062 B/C Ratio 20.2 Ratio 05/02/2016 Comp Metabolic Sca938 CALCIUM 9.3 mg/dL 05/02/2016 Comp Metabolic Fyq187 ALK PHOS 62 U/L 05/02/2016 Comp Metabolic Yiv007 AST(SGOT) 11 U/L 05/02/2016 Comp Metabolic Yku138 ALT(SGPT) 10 U/L 05/02/2016 Comp Metabolic Dgg518 BILI T 0.6 mg/dL 05/02/2016 Comp Metabolic Pny623 ALBUMIN 4.3 g/dL 05/02/2016 Comp Metabolic Pkg563 TPRO 6.9 g/dL 05/02/2016 Comp Metabolic Xtj341 GLOB 2.6 g/dL 05/02/2016 Comp Metabolic Lxp184 A/G Ratio 1.6 Ratio 05/02/2016 Comp Metabolic Fzc292 Osmo 276 mOsmo 05/02/2016 Tsh Ord6 hTSH [...] Procedure Codes Date DESTRUCT PREMALG LESION CPT-4: 96217 12/08/2018 DESTRUCT PREMALG LES 2-14 CPT-4: 25073 12/08/2018 DESTRUCT PREMALG LESION CPT-4: 82968 05/01/2018 DESTRUCT PREMALG LES 2-14 CPT-4: 22561 05/01/2018 IIV4 VACC NO PRSV 3 YRS+ IM CPT-4: 23300 09/05/2017 FLU VAC NO PRSV 4 RENATO 3 YRS+ CPT-4: 13805 09/05/2017 ADMIN INFLUENZA VIRUS VAC CPT-4: G0008 09/05/2017 IIV4 VACC NO PRSV 3 YRS+ IM CPT-4: 02595 09/05/2017 THER/PROPH/DIAG INJ SC/IM CPT-4: 17003 09/05/2017 TRIAMCINOLONE ACET INJ NOS CPT-4: J3301 09/05/2017 DESTRUCT PREMALG LESION CPT-4: 81043 05/21/2017 DESTRUCT PREMALG LES 2-14 CPT-4: 63130 05/21/2017 PNEUMOCOCCAL VACC 13 RENATO IM Formatting Model/CDA Sections, Assigned to/Viola Baker CT: [id number] CPT-4: 98177Vmlcuor 05/02/2016 IMMUNIZATION ADMIN CPT -4: 37657 05/02/2016 Vital Signs Date Vital 02/10/2019 Blood Pressure 1: 142/74 Code : 8480-6 BMI: 30.6 Code : 45203-9 Heart Rate 1 : 90 bpm Height: 5'3" SpO2: 98% Weight: 173 lbs 12/08/2018 Blood Pressure 1: 128/78 Code : 8480-6 BMI: 30.6 Code : 24788-0 Heart Rate 1 : 76 bpm Height: 5'3" SpO2: 98% Weight: 173 lbs 05/29/2018 Blood Pressure 1: 140/80 Code : 8480-6 Blood Pressure 2: 120/80 Code: 8480-6 BMI: 31.1 Code: 94148-7 Heart Rate 1: 108 bpm Height: 5'3" SpO2: 98% Weight: 175 lbs 13 oz 05/01/2018 Blood Pressure 1: 152/92 Code : 8480-6 BMI: 31.2 Code : 21674-3 Heart Rate 1 : 81 bpm Height: 5'3" SpO2: 97% Weight: 176 lbs 09/05/2017 Blood Pressure 1: 138/68 Code : 8480-6 BMI: 30.8 Code : 74700-6 Heart Rate 1 : 111 bpm Height: 5'3" SpO2: 98% Weight: 174 lbs 05/21/2017 Blood Pressure 1: 132/88 Code : 8480-6 BMI: 30.6 Code : 39690-2 Heart Rate 1 : 88 bpm Height: 5'3" SpO2: 97% Weight: 173 lbs 05/02/2016 Blood Pressure 1: 138/88 Code : 8480-6 BMI: 30.6 Code : 19279-8 Heart Rate 1 : 77 bpm Height: [...] well woman exam (65+ years) Lifestyle satisfactory work/assisted experience 05/02/2016 None well woman exam (65+ [...] Encounters Encounter Performer Location Codes Date ( [id number] EST. PATIENT, LEVEL IV Diagnosis: Postmenopausal bleeding[ICD10: N95.0] Shala Dye MD, [facility] CPT-4: 92055 02/10/2019 ([id number]) 77899 EST. PATIENT, LEVEL IV Diagnosis: Essential (primary) hypertension[ICD10: I10] Diagnosis: Actinic keratosis[ICD10: L57.0] Diagnosis: Mixed hyperlipidemia[ICD10: E78.2] Bre Dye MD, [facility] CPT-4: 91529 12/08/2018 ([id number]) 62508 EST. PATIENT, LEVEL III Diagnosis: Essential (primary) hypertension[ICD10: I10] Bre Dye MD, [facility] CPT-4: 82709 05/29/2018 ([id number]) 11411 EST. PATIENT, LEVEL IV Diagnosis: Essential (primary) hypertension[ICD10: I10] Diagnosis: Mixed hyperlipidemia[ICD10: E78.2] Diagnosis: Actinic keratosis[ICD10: L57.0] Bre Dye MD, [facility] CPT- 4: 65470 05/01/2018 41619 EST. PATIENT, LEVEL III Diagnosis: Rash and other nonspecific skin eruption[ICD10: R21] Diagnosis: Encounter for immunization[ICD10: Z23] [facility] CPT-4: 19229 09/05/2017 ([id number]) 56570 EST. PATIENT, LEVEL IV Diagnosis: Mixed hyperlipidemia[ICD10: E78.2] Diagnosis: Vitamin D deficiency, unspecified[ICD10: E55.9] Diagnosis: Actinic keratosis[ICD10: L57.0] Bre Dye MD, [facility] CPT- 4: 36201 05/21/2017 ([id number]) OFFICE VISIT, NEW - LEVEL 3 Diagnosis: Vitamin D deficiency, unspecified[ICD10: E55.9] Diagnosis: Encounter for general adult medical examination without abnormal findings[ICD10: Z00.00] Diagnosis: Encounter for immunization[ICD10: Z23] [facility] CPT-4: 90019 05/02/2016 Plan of Care Planned Activity Notes [...] medications. 12/08/2018 [facility]ment[phone] (15 min) Moderate 12/08/2018 Patient Education: [...] at home. 05/29/2018 Appointment: [phone] (15 min) Moderate 05/29/2018 Patient Education: [...] thorough healing. 05/01/2018 Appointment: [phone] (15 min) Moderate 05/01/2018 Patient Education: Patient Medication Summary Completed 05/01/2018 Appointment: Bre Dye WPtel: [phone] [facility] (15 min) Moderate 04/24/2018 Patient Education: Patient Medication Summary Completed 01/20/2018 Care Plan: SCREEN[facility]AMMOGRAPHY[facility]ITAL [facility] 38663-8 Pending 01/20/2018 Visit Plan: Allergic Reaction/Hives - discussed diagnosis with patient, need to avoid allergen, and when/if the patient should go to the emergency room. Pt was instructed to take benadryl 25mg q 6 hours x 48 hours, and pepcid 20mg bid x 48 hours, pt also given RX for prednisone taper. 09/05/2017 Appointment: Christina Swanson WPtel: [phone] [facility] (15 min) Moderate 09/05/2017 Patient Education: Patient [...] forearm 05/21/2017 Appointment: Bre Dye WPtel: [phone] [facility] [place] (15 min) Moderate 05/21/2017 Patient Education: Patient Medication Summary Completed 05/21/2017 Appointment: [phone] [place] (15 min) Moderate 05/08/2017 Visit Plan: Well [...] functioning. 05/02/2016 Appointment: [phone] [place] (S) New Patient 05/02/2016 Patient [...]
[2019-02-20] MEDS ORDERED: MIDAZOLAM 2 MG/2 ML (VERSED) VIAL ONE (06:57)
--- NOTE | 2019-02-20 07:25 | Ophthalmologist Pre-Op Note ---
Pre-Operative Progress Note H&P Reviewed The H&P was reviewed, patient examined and no changes noted. Date H&P Reviewed: Feb 20, 2019 Time H&P Reviewed: 07:25 Pre-Op Dx Cataract, Right Eye GERARD RONQUILLO MD Feb 20, 2019 07:25
--- NOTE | 2019-02-20 07:47 | Ophthalmology Operative Report ---
Cataract removal/placement IOL PREOPERATIVE DIAGNOSIS: Cataract Right Eye POSTOPERATIVE DIAGNOSIS: Cataract Right Eye PROCEDURE: Cataract removal and placement of posterior chamber implant, right eye SURGEON: Tyler Ronquillo ANESTHESIA: Topical with sedation COMPLICATIONS: None ESTIMATED BLOOD LOSS: Minimal DESCRIPTION OF PROCEDURE: After proper informed consent was obtained, the patient, a 78 female, was taken to the Operating Room and the right eye was anesthetized with tetracaine. The right eye was then prepped and draped in the usual manner. A wire lid speculum was placed. A paracentesis was made at the left hand position. Preservative free lidocaine was injected into the anterior chamber followed by viscoelastic. A clear corneal incision was made in the temporal position. A capsulorrhexis was preformed and the central nuclear and cortical material were removed. The posterior capsule was polished and Corey 21.0 AU00T0 IOL was placed into the capsular bag. The residual viscoelastic was aspirated and balanced saline solution was injected into the anterior chamber. Moxifloxacin was injected into the anterior chamber. The wound was checked and found to be water tight. The patient tolerated the procedure well without complications. TYLER RONQUILLO MD Feb 20, 2019 07:47
[2019-02-20 08:00] VITALS: BP 116/67
[2019-02-20] MEDS ORDERED: acetaZOLAMIDE ER 500 MG CAP (DIAMOX SEQUELS) PO ONE (08:00)
--- NOTE | 2019-02-20 10:14 | Anesthesia-General Post-Op ---
MAC Patient Condition Mental Status/LOC: Same as Preop Cardiovascular: Satisfactory Nausea/Vomiting: Absent Respiratory: Satisfactory Pain: Controlled Complications: Absent Post Op Complications Complications None Follow Up Care/Instructions Patient Instructions None needed. Anesthesiology Discharge Order Discharge Order Patient is doing well, no complaints, stable vital signs, no apparent adverse anesthesia problems. No complications reported per nursing. KULWINDER BARTH CRNA Feb 20, 2019 10:14
[2019-02-23] MEDS ORDERED: IBUP-1773 PO (12:37)
[2019-02-23] MEDS ORDERED: OXYC1TAB87 PO (12:37)
== END 2019-02-20 08:00 | disposition home or self-care (01) ==
LOC: SDC 06:20
PROVIDERS: ATTEND Specialist
DX: H25.11 Age-related nuclear cataract, right eye (principal); I10 Essential (primary) hypertension; Z79.899 Other long term (current) drug therapy

== ENCOUNTER 2019-02-23 10:53 | Day surgery (SDC) | payer MEDICARE, OTHER ==
[~2019-02-23] VITALS: Ht 157.5 cm; Wt 78.0 kg
[2019-02-23 11:15] VITALS: BP 118/72
[2019-02-23] MEDS ORDERED: ceFAZolin INJECTION 1,000 MG ONE (11:35)
[2019-02-23] MEDS ORDERED: ONDANSETRON 4 MG/2 ML (SDV) Z0FRAN ONE ×2 (11:35→11:39)
[2019-02-23] MEDS ORDERED: SEVOFLURANE (ULTANE) 15 ML INHAL SOLN ONE ×2 (11:39→13:16)
[2019-02-23] MEDS ORDERED: DEXAMETHASONE 10 MG/ML (DECADRON) 1 ML VIAL ONE (11:39)
[2019-02-23] MEDS ORDERED: LIDOCAINE PF 2% 5 ML (XYLOCAINE) VIAL ONE (11:39)
[2019-02-23] MEDS ORDERED: fentaNYL INJECTION 100 MCG/2 ML AMP ONE (11:39)
[2019-02-23] MEDS ORDERED: proPOfol 200 MG/20 ML (DIPRIVAN) VIAL IV ONE (11:39)
[2019-02-23 11:40] LABS: BASOPHILS % (AUTO) 1 % (0-10); EOSINOPHILS # (AUTO) 0.1 10^3/uL (0.0-0.3); EOSINOPHILS % (AUTO) 2 % (0-10); HEMATOCRIT 42 % (35-52); HEMOGLOBIN 14.2 G/DL (11.5-16.0); LYMPHOCYTES # (AUTO) 2.1 X 10^3 (1.0-4.0); LYMPHOCYTES % (AUTO) 27 % (12-44); MEAN CORPUSCULAR HEMOGLOBIN 30 PG (25-34); MEAN CORPUSCULAR HGB CONC 34 G/DL (32-36); MEAN CORPUSCULAR VOLUME 87 FL (80-99); MEAN PLATELET VOLUME 9.6 FL (7.4-10.4); MONOCYTES # (AUTO) 0.7 X 10^3 (0.0-1.0); MONOCYTES % (AUTO) 9 % (0-12); NEUTROPHILS # (AUTO) 4.8 X 10^3 (1.8-7.8); NEUTROPHILS % (AUTO) 62 % (42-75); PLATELET COUNT 225 10^3/uL (130-400); WHITE BLOOD COUNT 7.7 10^3/uL (4.3-11.0)
[2019-02-23] MEDS: LACTATED RINGERS 1,000 ML IV PRN ×2 (11:44→13:45)
[2019-02-23] MEDS ORDERED: ONDANSETRON 4 MG/2 ML (SDV) Z0FRAN IV ONE (11:45)
--- NOTE | 2019-02-23 12:33 | Progress Note-Pre Operative ---
Pre-Operative Progress Note H&P Reviewed The H&P was reviewed, patient examined and no changes noted. Date Seen by Provider: Feb 23, 2019 Time Seen by Provider: 12:33 Date H&P Reviewed: Feb 23, 2019 Time H&P Reviewed: 12:33 Pre-Operative Diagnosis: Postmenopausal bleeding/endometrial polyp/endometrial hyperplasia WALTER GONZALEZ MD Feb 23, 2019 12:33
[2019-02-23] MEDS ORDERED: D5 LR IV SOLUTION 1,000 ML IV SCH (12:34)
--- NOTE | 2019-02-23 12:34 | Progress Note-Post Operative ---
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
[2019-02-23] MEDS ORDERED: OXYC1TAB87 PO (12:37)
[2019-02-23] MEDS ORDERED: IBUP-1773 PO (12:37)
--- NOTE | 2019-02-23 12:39 | Discharge Instructions ---
Discharge Instructions Discharge Medications New, Converted or Re-Newed RX: RX on Chart Patient Instructions Patient Instructions: as directed Return to The Hospital For: As directed Activity & Diet Discharge Diet: No Restrictions Activity as Tolerated: Yes Orders-Post D/C & Referrals Follow Up Appt: Call to make follow up appt. for patient in 2 weeks. Activity: Rest for 24 hours, than as tolerated. Please call in RX to patient pharmacy. Diet: As tolerated-Clear Liquids only if nauseated. shower or tub bathe as desired. No driving for 24 hours, no alcoholic beverages for 24 hours, and nothing per vagina (no tampons, douching, or intercourse) for 2 weeks. Patient to return to the clinic as soon as possible for: Temperature greater than 101F, Severe Pain, Foul discharge from incision or vagina, Excessive Bleeding (more than a period). WALTER GONZALEZ MD Feb 23, 2019 12:39
[2019-02-23] MEDS ORDERED: MEPERIDINE (DEMEROL) INJ 100 MG/ML IM ONE (12:45)
[2019-02-23] MEDS ORDERED: KETOROLAC 30 MG/ML VIAL IVP ONE (12:45)
[2019-02-23] MEDS ORDERED: oxyCODONE/APAP 5/325MG (PERCOCET 5) TABLET PO PRN (12:45)
[2019-02-23] MEDS ORDERED: ONDANSETRON 4 MG/2 ML (SDV) Z0FRAN IVP PRN ×2 (12:45→13:45)
[2019-02-23] MEDS ORDERED: ESTROGENS CONJ IV 25 MG/5 ML (PREMARIN) VIAL IVP ONE (12:45)
[2019-02-23] MEDS ORDERED: PROMETHAZINE INJ 25 MG/ML (PHENERGAN) AMP IM ONE (12:45)
[2019-02-23] MEDS ORDERED: WATER (STERILE) FOR INJECTION 10 ML ONE (12:53)
[2019-02-23] MEDS ORDERED: ESTROGENS CONJ IV 25 MG/5 ML (PREMARIN) VIAL ONE (12:53)
--- NOTE | 2019-02-23 13:29 | Anesthesia-General Post-Op ---
General Patient Condition Mental Status/LOC: Same as Preop Cardiovascular: Satisfactory Nausea/Vomiting: Absent Respiratory: Satisfactory Pain: Controlled Complications: Absent Post Op Complications Complications None Follow Up Care/Instructions Patient Instructions None needed. Anesthesia/Patient Condition Patient Condition Patient is doing well, no complaints, stable vital signs, no apparent adverse anesthesia problems. No complications reported per nursing. D/C home per [facility] Criteria: No PADMINI GREWAL CRNA Feb 23, 2019 13:29
[2019-02-23] MEDS ORDERED: KETOROLAC 30 MG/ML VIAL ONE (13:35)
[2019-02-23] MEDS ORDERED: KETOROLAC 15 MG/ML VIAL IVP ONE (13:45)
[2019-02-23] MEDS ORDERED: morphine INJ 10 MG/ML 1ML (SYR OR VIAL) IVP ONE (13:45)
[2019-02-23] MEDS ORDERED: morphine INJ 10 MG/ML 1ML (SYR OR VIAL) ONE (13:50)
[2019-02-23 14:20] VITALS: BP 132/73
[2019-02-23 14:50] VITALS: BP 122/86
--- NOTE | 2019-02-23 21:02 | OPERATIVE REPORT ---
DATE OF SERVICE: 02/23/2019 PREOPERATIVE DIAGNOSIS: Postmenopausal bleeding with endometrial biopsy showing endometrial hyperplasia and polypoid tissue. POSTOPERATIVE DIAGNOSES: Postmenopausal bleeding with endometrial biopsy showing endometrial hyperplasia and polypoid tissue with pathology pending, leukoplakia of posterior fourchette. OPERATIVE PROCEDURES: Hysteroscopy with directed biopsies and D and C up as well as biopsy of the posterior fourchette. OPERATIVE DESCRIPTION: With the patient in the supine position under satisfactory general anesthesia, she was repositioned in dorsal lithotomy position in the Todd stirrups and prepped and draped in usual fashion for vaginal surgery. Urinary bladder was drained with a straight catheter. The patient's vaginal introitus was normal for her age; however, the posterior fourchette had an area of fairly dense leukoplakia. A employee representative biopsy was taken from that area to rule out lichen sclerosus and/or squamous cell abnormality including cancer. A weighted speculum was placed in the posterior fourchette and the cervix exposed, it was grasped anteriorly with single-tooth tenaculum. There was a polypoid mass protruding from the cervix. This was grasped and removed directly and sent to pathology labeled as such. The hysteroscope was introduced and using LR as a distending medium, the endometrial cavity was examined. There was extensive polypoid tissue filling the endometrial cavity. There were a couple of separate polyps from the large polypoid undulating mass. A separate lesion was biopsied and those fragments of tissue sent separately. A polyp forceps was then used to remove a large amount of polypoid tissue from the endometrial cavity. The hysteroscope was then reintroduced and a single remaining polypoid mass was biopsied out in its entirety. The endometrial cavity was then sharply curettaged in all 4 quadrants to good uterine cry removing an additional aliquot of tissue. The endometrial cavity was examined a final time with the hysteroscope with findings of a well-denuded endometrial cavity with no remaining polypoid tissue or abnormal appearing tissue. There was no significant bleeding at this point. The hysteroscope was removed as was the tenaculum from the cervix. One of the puncture sites on the cervix was bleeding fairly profusely, refused to stop bleeding even with silver nitrate, so a single [id number] suture of 2-0 Vicryl was placed to affect hemostasis. With hemostasis on the cervix confirmed and no bleeding from the cervical os, the posterior fourchette was examined where the biopsy site that was hemostatic after touching with silver nitrate. The patient was now uneventfully awakened from her general anesthesia and transferred to recovery room in stable condition with plans for discharge home. The estimated blood loss for the procedure was may be in the range of 30-50 mL total, primarily of the bulk of that from the bleeding at the puncture site on the cervix. A total of 1.5 liters of distending medium was used and that almost the same amount was recovered. The patient tolerated the procedure well. Job ID: [id number] DocumentID: [id number] Dictated Date: 02/23/2019 13:20:59 Intelligence Agent Date: 02/23/2019 21:01:01 Dictated By: WALTER GONZALEZ MD
== END 2019-02-23 15:15 | disposition home or self-care (01) ==
LOC: SDC 10:53
PROVIDERS: ATTEND Obstetrics & Gynecology
DX: N84.0 Polyp of corpus uteri (principal); N95.0 Postmenopausal bleeding; N85.00 Endometrial hyperplasia, unspecified; E78.5 Hyperlipidemia, unspecified; I10 Essential (primary) hypertension; E03.9 Hypothyroidism, unspecified; Z11.2 Encounter for screening for other bacterial diseases; Z79.899 Other long term (current) drug therapy
CPT/HCPCS: 36415; 85025; 87081

== ENCOUNTER 2022-11-30 07:13 | Outpatient (CLI) | payer MEDICARE, OTHER ==
[~2022-11-30] VITALS: Ht 157.5 cm; Wt 75.0 kg
[~2022-11-30 07:13] MED LIST changes: +IBUP-1773 PO; +OXYC1TAB87 PO
[2022-11-30] MEDS ORDERED: ASCO500T16 PO (13:31)
[2022-11-30] MEDS ORDERED: MULT-1136 PO (13:31)
== END 2022-11-30 13:38 | disposition home or self-care (01) ==
LOC: PREOP 07:13
PROVIDERS: ATTEND Otolaryngology Otolaryngology/Facial Plastic Surgery
DX: Z01.818 Encounter for other preprocedural examination (principal)

== ENCOUNTER 2022-12-07 07:33 | Day surgery (SDC) | payer MEDICARE, OTHER ==
[2022-12-07] VITALS (9 sets, daily range): BP systolic 113–156; BP diastolic 54–90
[~2022-12-07] VITALS: Ht 157 cm; Wt 75.0 kg
[~2022-12-07 07:33] MED LIST changes: +ASCO500T16 PO; +MULT-1136 PO
[2022-12-07] MEDS: LACTATED RINGERS 1,000 ML IV PRN ×2 (08:30→11:09)
[2022-12-07 08:34] LABS: BASOPHILS # (AUTO) 0.1 10^3/uL (0.0-0.1); BASOPHILS % (AUTO) 1 % (0-10); EOSINOPHILS # (AUTO) 0.2 10^3/uL (0.0-0.3); EOSINOPHILS % (AUTO) 3 % (0-10); HEMATOCRIT 40 % (35-52); HEMOGLOBIN 13.2 g/dL (11.5-16.0); LYMPHOCYTES # (AUTO) 1.8 10^3/uL (1.0-4.0); LYMPHOCYTES % (AUTO) 29 % (12-44); MEAN CORPUSCULAR HEMOGLOBIN 30 pg (25-34); MEAN CORPUSCULAR HGB CONC 33 g/dL (32-36); MEAN CORPUSCULAR VOLUME 89 fL (80-99); MEAN PLATELET VOLUME 9.5 fL (9.0-12.2); MONOCYTES # (AUTO) 0.5 10^3/uL (0.0-1.0); MONOCYTES % (AUTO) 9 % (0-12); NEUTROPHILS # (AUTO) 3.6 10^3/uL (1.8-7.8); NEUTROPHILS % (AUTO) 58 % (42-75); PLATELET COUNT 235 10^3/uL (130-400); WHITE BLOOD COUNT 6.2 10^3/uL (4.3-11.0)
[2022-12-07 08:55] LABS: CALCIUM 9.2 MG/DL (8.5-10.1); CREATININE SERUM 0.98 MG/DL (0.60-1.30); POTASSIUM 4.2 MMOL/L (3.6-5.0)
[2022-12-07] MEDS ORDERED: LIDOCAINE/EPI 1%-1:100,000 (XYLOCAINE) 30ML ONE (09:27)
[2022-12-07] MEDS ORDERED: LIDOCAINE 1% INJ 20 ML VIAL ONE (09:34)
--- NOTE | 2022-12-07 09:37 | Progress Note-Pre Operative ---
Pre-Operative Progress Note Date of Available H&P: Dec 07, 2022 Date H&P Reviewed: Dec 07, 2022 Time H&P Reviewed: 09:30 History & Physical: H&P Reviewed, Patient Examed, No changes noted Changes from last HP none Pre-Operative Diagnosis: Basal cEll of the posterior scalp, Right Nasal Lesion BENJAMIN DE JESUS MD Dec 07, 2022 09:37
--- NOTE | 2022-12-07 09:39 | Progress Note-Post Operative ---
Post-Operative Progess Note Surgeon (s)/Shaker Operator (s) Surgeon BENJAMIN DE JESUS MD Shaker Operator n/a Pre-Operative Diagnosis Basal cEll of the posterior scalp, Right Nasal Lesion Post-Operative Diagnosis same Post-Op Procedure Note Date of Procedure: Dec 07, 2022 Name of Procedure Performed: Excsion of Right Nasal LEsion, Reconstruction with FTSG-Donor Site Right Neck, Excisin of Right Posteriro Scalp Lesion, REconstruction with FTSG, Donor site -right neck Description & Findings Description and Findings: n/a Anesthesia Type get Estimated Blood Loss minimal Packing none. Specimen(s) collected/removed right nose lesion for frozen right posterior scalp lesion for frozen BENJAMIN DE JESUS MD Dec 07, 2022 09:39
[2022-12-07] MEDS ORDERED: fentaNYL INJ 100 MCG/2 ML AMP ONE (09:40)
[2022-12-07] MEDS ORDERED: HYDROcodone/APAP 5 MG/325 MG (LORTAB) TAB PO PRN (09:45)
[2022-12-07] MEDS ORDERED: ACETAMINOPHEN 325 MG TABLET PO PRN ×2 (09:45)
[2022-12-07] MEDS ORDERED: proPOfol 200 MG/20 ML (DIPRIVAN) VIAL IV ONE (09:49)
[2022-12-07] MEDS ORDERED: ROCURONIUM 50 MG/5 ML (ZEMURON) VIAL IV ONE (09:50)
[2022-12-07] MEDS ORDERED: LIDOCAINE PF 2% 5 ML (XYLOCAINE) VIAL ONE (09:50)
[2022-12-07] MEDS ORDERED: ONDANSETRON 4 MG/2 ML (SDV) Z0FRAN ONE (09:50)
[2022-12-07] MEDS ORDERED: BSS 15 ML ONE ×2 (10:07→10:10)
[2022-12-07] MEDS ORDERED: MUPIROCIN 2% OINT 22 GM (BACTROBAN) TUBE ONE (10:09)
[2022-12-07] MEDS ORDERED: SEVOFLURANE (ULTANE) 15 ML INHAL SOLN ONE (11:20)
--- NOTE | 2022-12-07 14:14 | Anesthesia-General Post-Op ---
General Patient Condition Mental Status/LOC: Same as Preop Cardiovascular: Satisfactory Nausea/Vomiting: Absent Respiratory: Satisfactory Pain: Controlled Complications: Absent Post Op Complications Complications None Follow Up Care/Instructions Patient Instructions None needed. Anesthesia/Patient Condition Patient Condition Patient was doing well after the procedure with no complaints, stable vital signs, no apparent adverse anesthesia problems. No complications reported per nursing. VINH HAJI DO Dec 07, 2022 14:14
== END 2022-12-07 13:21 | disposition home or self-care (01) ==
LOC: SDC 07:33
PROVIDERS: ATTEND Otolaryngology Otolaryngology/Facial Plastic Surgery
DX: C44.41 Basal cell carcinoma of skin of scalp and neck (principal); C44.311 Basal cell carcinoma of skin of nose
CPT/HCPCS: 36415; 80048; 82947; 85025; 87081; 93005